=== PATIENT | male | born 1950 | race Caucasian/White ===

== ENCOUNTER 2018-09-10 08:29 | Inpatient (IN) | payer MEDICARE ==
--- NOTE | 2018-09-03 12:48 | HP ---
HISTORY AND PHYSICAL: DATE OF ADMISSION/SURGERY: 09/10/18 DATE OF OFFICE VISIT: 08/30/18 SURGEON: Fernanda Stanley MD * (DICTATED BY CHECO LOPEZ) PROCEDURE: Left total knee arthroplasty. CHIEF COMPLAINT: Left knee pain. HISTORY OF PRESENT ILLNESS: Mr. Graham is a 68-year-old gentleman with severe end - stage osteoarthritis of the left knee. He has failed conservative treatment and elected to proceed with a left total knee arthroplasty. PAST MEDICAL HISTORY: Hypertension, GERD, sleep apnea, COPD and factor VII deficiency. PAST SURGICAL HISTORY: Right total knee arthroplasty, bariatric surgery, hernia repair, prostate surgery unknown, appendectomy and vein stripping. CURRENT MEDICATIONS: 1. Vitamin B12. 2. Multivitamin. 3. Omeprazole 40 mg daily. 4. Torsemide 10 mg daily. 5. Aspirin 81 mg. 6. Calcium with vitamin D. 7. Anoro Ellipta. 8. Metoprolol 25 mg half a tab daily. ALLERGIES: No known drug allergies. FAMILY HISTORY: Coronary artery disease, DVT, and stroke. SOCIAL HISTORY: He is a 68-year-old gentleman, lives with his . He quit smoking approximately 10 years ago. Denies use of drugs. Uses alcohol rarely. REVIEW OF SYSTEMS: A complete 14-point review of systems was reviewed with the patient. It was positive for factor VII deficiency, GERD, COPD, and shortness of breath. He denies history of DVT, PE, hepatitis, HIV, or anesthesia problems. PHYSICAL EXAMINATION GENERAL: He is well developed, well nourished, in no acute distress. VITAL SIGNS: He stands 6 feet tall, weighs 315 pounds. His blood pressure is 136/84 and his heart rate is 60. HEENT: Normocephalic, atraumatic. NECK: Supple. No palpable lymph nodes. PULMONARY: The lungs are clear to auscultation bilaterally. CARDIO: Regular rate and rhythm. Strong S1, S2. ABDOMEN: Soft, nontender, nondistended. NEUROLOGICAL: He is alert and oriented x3. MUSCULOSKELETAL: Left lower extremity, the skin is intact. There are no open wounds or abrasions. There is some tenderness over the medial and lateral joint line. Range of motion is 10 to 120 degrees of flexion with patellofemoral crepitus. There is 2+ pitting edema, 2+ dorsalis pedis pulse, intact sensation. His lower extremity muscle group strengths are intact at 5/5. ASSESSMENT AND PLAN: Mr. Graham is a 68-year-old gentleman with end-stage osteoarthritis of the left knee. He has failed conservative treatment and elected to proceed with a left total knee arthroplasty. The surgery is scheduled for 09/10/[address] Stanley discussed the risks and benefits of the surgery at today's visit and all of his questions were answered. He will follow with Dr. Stanley 2 weeks after the surgery. CHECO LOPEZ [id number]/[facility] #: [id number] NIKKY
--- NOTE | 2018-09-04 13:54 | CONS ---
CC: Dr. Fernanda Stanley; Dr. Erin Carolina * CONSULTATION NOTE: DATE OF CONSULT: 09/04/18 DATE OF UPCOMING ADMISSION: 09/09/18 REASON FOR CONSULT: Factor VII deficiency. HISTORY OF PRESENT ILLNESS: Mr. Graham is a 68-year-old male who was seen in our office in March 2018. He had originally been seen in August 2013. At that time, he had been scheduled for a TURP for benign prostatic hypertrophy. He was found to have an elevated INR at 1.4. Attempts were given to use a vitamin K, but his INR did not budge. Workup ensued and included anticardiolipin antibodies being normal, Willebrand's being normal, and protein factor level as being normal; however, he was found to have a low factor VII level. This was repeated. This was an unusual finding and was found to be 26%; on repeat, at 23 %. More recently factor VII level has been checked on the day of the office visit in March and is still 27%. Arrangements were made for him to have his TURP surgery. This was done with a NovoSeven replacement (recombinant factor VIII replacement). At that time, INR was checked following the dose of NovoSeven and INR dropped from a normal to less than 0.6. There was significant issues of laboratory in terms of trying to quantitate this at that time. Subsequently in March 2018, his INR was 1.4, similar to his baseline and then on 08/30/18 at baseline, again at 1.37. The patient in the past has had a bleeding history. His bariatric surgery in January 2013 with no complications. He has lost 120 pounds from then until 2013 and he has regained 30 pounds since. The patient is status post total knee replacement on the right in the past, had significant bleeding at the sites 3 days later. This started after he was exercising. He ended up being immobilized for 2 weeks and no further bleeding. He has had some issues with that knee ever since. He has had no problems in the past within the other surgical procedures. He dose describe easy bruisability, sometimes bruising even when he does not bump himself. He has had no significant bleeding history spontaneously; specifically no epistaxis, gum bleeding, hematuria, bright red blood per rectum, or melena. The patient is currently scheduled for a contralateral left total knee arthroplasty. This is for a severe end-stage osteoarthritis of the knee having failed conservative treatment. Other laboratory studies recently have included CBC with a white count of 6200, H and H 46/15.9 with a platelet count of 188, 000. It should be noted that the patient at times has had mildly decreased platelet counts in the 120 to 140 range although normal at this time. 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 He will require a recombinant factor VII replacement in order to have surgery. There are guidelines from the [employer] (STER). In this registry, there were a total of 41 surgical operations performed on 34 subjects with a factor VII deficiency. These were patients treated with recombinant factor VII. In each case, where factor VII was given at appropriate dosing, there was no significant bleeding. Recommended dose of factor VII would be 13 mcg/kg, which in a 326-pound individual would be 1.9 mg. This dose should be given preoperatively and are given 12 and 24 hours later. If he has any signs of any bleeding, certainly further dosing could be given. I have already checked with the hospital pharmacy and adequate dosing is available in the pharmacy for use in this manner. However, if are further questions, please feel free to contact our office. Orders will be placed in the patient's hospital chart including in the preoperative setting for appropriate dosing of recombinant factor VII. Risks of giving NovoSeven were discussed with the patient at the time of the office visit in March 2018. There were cases of factor VII causing thrombotic events when levels become too high. There is also obviously a risk for bleeding if this does not adequately replace his levels. Clearly, he was more than adequately replaced on similar dosing at the time of his prostate surgery in 2013. I would not, at this time, advise checking INRs as this is a standard dose to be given. [id number]/[facility] #: [id number] [facility]
[~2018-09-10 08:29] MED LIST: Buffered Lidocaine 1% SYRIN* 1 ML/SYRINGE INTRADERM ONE; Famotidine IV* 10 MG/ML 2 ML (20 mg) IV ONE; Gabapentin CAP(*) 300 MG PO ONE
--- OUTSIDE RECORDS SUMMARY | 2018-09-10 08:33 | XMS REPORT | Continuity of Care Document ---
:1950 External Reference #:[id number] Author Name Vidya Everett Care Team Providers Name Role Phone Carlos Xavier NP Primary Care Physician Unavailable Payers Type Date Identification Numbers Payment Provider Subscriber Effective: Policy Number: [id number] [facility] Neha Vallesr 2010 Expires: 2014 PayID: [id number] [address] [place] [address] Effective: 2014 Policy Number: [id number] Medicare Blue Ppo Neha Graham Group Number: [id number] [address] PayID: [id number] [place] [address] Advance Directives Description No Information Available Problems Date Description Provider Status Onset: 07/26/2011 Edema Mirian Kelly M.D. Onset: 07/26/2011 Dyspnea Mirian Kelly M.D. Onset: 07/26/2011 Electrocardiogram abnormal Mirian Kelly M.D. Onset: 07/26/2011 Right bundle branch block Mirian Kelly M.D. Onset: 07/26/2011 Benign essential hypertension Mirian Kelly M.D. Onset: 07/26/2011 Coronary arteriosclerosis Mirian Kelly M.D. Onset: 03/27/2012 Pulmonary emphysema Mirian Kelly M.D. Onset: 03/27/2012 Morbid obesity Mirian Kelly M.D. Onset: 06/04/2015 Essential hypertension Mirian Kelly M.D. Onset: 10/30/2016 Chronic obstructive lung disease Kate Boyce MD Active Onset: 10/30/2016 Obstructive sleep apnea syndrome Kate Boyce MD Active Onset: 10/30/2016 Encounter for screening for Kate Boyce MD Active malignant neoplasm of respiratory organs Onset: 03/11/2018 Localized, primary osteoarthritis Philip Talamantes M.D. Active Family History Date Family Member(s) Problem(s) Comments General Heart Disease General MGF of a stroke MGM Alzheimer's PGF Train accident at age 80 PGM Natural causes : (age 83 Father due to CHF valve replacement surgery Years) Mother at age 90 Natural causes Had had mini strokes Siblings 2 Sister knee issues Brother w/knee, hernia issues, CABG 10/14 Social History Type Date Description Comments Sex Unknown Marital Status Lives With Occupation [employer] Tobacco Use Start: Unknown End: Former Cigarette Smoker Smoked 2 ppd for 40 Unknown years Smoking Status Reviewed: 09/06/18 Former Cigarette Smoker Smoked 2 ppd for 40 years ETOH Use Occasionally consumes alcohol Tobacco Use Start: Unknown End: Patient is a former 40 yrs 2 pks Unknown smoker Recreational Drug Use Denies Drug Use Exercise Type/Frequency Exercises sporadically Exercise Limitations Joint Pain Allergies, Adverse Reactions, Alerts Description No Known Drug Allergies Medications Medication Date Status Form Strength Qnty SIG Indications Ordering Provider Vitamin B-12 10/29/ Active Tablets 500mcg 90tab 1 po qd Other 2012 s Ordering Provider Multi Vitamin / Active Tablets 1 po qd Unknown 0000 Omeprazole [address]/ [address] 40mg 30cap 1 po qd Unknown 0000 s Cpap 0000/ Active at hs Unknown 0000 Torsemide 0000/ Active Tablets 10mg 90tab 1 by mouth Unknown 0000 s every day Aspir-81 0000/ Active Tablets DR 81mg 1 by mouth Unknown 0000 every day Calcium Plus 00/ Active Liquid 1000mg 1 tbsp. po Unknown D 0000 qd Anoro Ellipta 00/ Active 1 puff Unknown 0000 daily Metoprolol / Active Tablets ER 25mg 45tab 1/2 tablet Qutaybeh Succinate ER 0000 24HR s by mouth S. 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 2015 needed Calcium + D 09/16/ Hx Chewtabs 500mg 2 every day Other 2014 - Ordering 06/03/ Provider 2014 Tramadol HCL 07/01/ Hx Tablets 50mg 90tab 1 tablets Dirk 2013 - s by mouth q6 [place], 09/15/ hours as M.DKashmir 2014 needed pain Ipratropium 10/29/ Hx Solution 0.5-2.5(3) 90uni 1 vial in Other [place]/Albut 2012 - mg/3ML ts nebulizer Ordering joelle Sulfate 12/07/ three times Provider 2014 a day as needed for asthma Calcium 500 10/29/ Hx Tablets 500mg 60tab 2 po daily Other 2012 - s Ordering 09/16/ Provider 2015 Lisinopril 10/29/ Hx Tablets 10mg 1 po qd Coby 2012 - S. 10/29/ Raghu Guzman M.D. Lisinopril 10/29/ Hx Tablets 20mg 1 po qd Qutaybeh 2012 - S. 07/16/ Raghu 2012 Baltazar Advair Diskus 03/27/ Hx Aerosol 250-50mcg/ 1unit 1 puff po Alexandrataybpriyanka 2012 - Dose s bid S. 10/29/ Raghu 2012 Baltazar Demadex 02/07/ Hx Tablets 20mg 1/2 po qd Qutaybeh 2010 - S. 10/29/ Raghu Guzman M.D. Lisinopril 05/11/ Hx Tablets 20mg 90tab 1 po qd Qutaybeh 2009 - s S. 10/29/ Raghu 2012 Baltazar HCTZ 03/10/ Hx 25mg. 30uni 1 po qd Qutaybeh 2009 - ts S. 10/29/ hayd2012 , Baltazar Demadex 03/08/ Hx Tablets 20mg 60tab one po qd Qutaybeh 2009 - s S. 02/07/ haydah 2010 , Baltazar Demadex 02/08/ Hx Tablets 20mg 60tab 1 po bid Qutaybeh 2009 - s S. 03/08/ yd2009 , Baltazar Lasix 12/27/ Hx Tablets 40mg 1 po qam, Qutaybeh 2009 - 08/28 po qpm S. 02/08/ hayd2009 , Baltazar Lasix 12/17/ Hx Tablets 20mg 1 po qd Qutaybeh 2009 - S. 12/27/ 2009 , Baltazar Lasix 12/06/ Hx Tablets 40mg 1 po qd Qutaybeh 2009 - S. 12/17/ hayd2009 , Baltazar Lasix 11/10/ Hx Tablets 40mg 90tab 1 and 08/28 Qutaybeh 2009 - s po bid S. 12/06/ yd2009 , Baltazar Aldactone 11/10/ Hx Tablets 25mg 30tab 1 po qd Qutaybeh 2009 - s S. 12/06/ 2009 , Baltazar HCTZ 11/10/ Hx 25mg. 60uni 2 po qd Qutaybeh 2009 - ts S. 03/10/ yd2009 , Baltazar Cozaar 11/10/ Hx Tablets 50mg 90tab 1 po qd Qutaybeh 2009 - s S. 10/29/ yd2012 , Baltazar Lasix 07/29/ Hx Tablets 40mg 30tab 1 po qd Qutaybeh 2008 - s S. 11/10/ yd2009 , Baltazar C-Pap 07/13/ Hx qhs Qutaybeh 2008 - S. [facility] Baltazar Hyzaar 06/02/ Hx Tablets 50-12.5mg 30tab one po qd Qutaybeh 2008 - s S. 11/10/ Maghaydah 2009 , Baltazar Amlodipine 03/30/ Hx Tablets 5mg 45tab 1 and 08/28 Qutaybeh Besylate 2009 - s tablet po S. 06/02/ qd Maghaydah 2008 , Baltazar Norvasc 09/09/ Hx Tablets 5mg 45tab 1and 08/28 po Qutaybeh 2009 - s qd [facility] Lasix 07/31/ Hx Tablets 40mg 30tab 1 po qd Qutaybeh 2008 - s S. 07/29/ [facility] , Baltazar Lisinopril 07/31/ Hx Tablets 20mg 180ta 1 po bid Qutaybeh 2008 - bs S. 05/11/ [facility] , Baltazar Lisinopril 05/18/ Hx Tablets 20mg 45tab 1 tablet in Qutaybeh 2008 - s am and 08/28 S. 07/31/ [facility] , Baltazar Jeffcet-N 01/28/ Hx Tablets 100 90tab 1 po qd Qutaybeh 100 2007 - s S. 07/31/ haydah 2007 , Baltazar Lisinopril 01/28/ Hx Tablets 20mg 1 PO am and Qutaybeh 2007 - 08/28 pm S. 01/28/ [facility] , Baltazar Lisinopril 01/28/ Hx Tablets 10mg 90tab take two Qutaybeh 2007 - s tabs in the S. 05/18/ Am and one haydah 2007 tab in the , MAurelia PM Aspirin 09/25/ Hx Chewtabs 81mg 1 PO qd Qutaybeh 2007 - S. 12/07/ [facility] , Baltazar Lopressor 09/25/ Hx Tablets 50mg 30tab 1/2 po qd Qutaybeh 2007 - s S. 12/02/ [facility] , Baltazar Mobic 09/18/ Hx Tablets 7.5mg 30tab 1 PO qd Qutaybeh 2007 - s S. 01/28/ [facility] , Baltazar Lisinopril 09/18/ Hx Tablets 20mg 1 PO qd Qutaybeh 2008 - S. 01/28/ Raghu Alexander M.D. Lopressor 09/18/ Hx Tablets 25mgM 30tab 1 po qd Coby 2007 - s S. 09/18/ Raghu Alexander M.D. Lopressor 09/18/ Hx Tablets 25mg 30tab one po qd Alexandrataybpriyanka 2007 - s S. 09/25/ Raghu Alexander M.D. Amoxicillin / Hx 875mg 1 po tid Unknown 0000 - 2010 Nasal [place] / Hx Solution prn Unknown 0000 - allergies 2011 Albuterol / Hx Nebulizer (2.5mg/3ML 100un 1 vial via Unknown Sulfate 0000 - ) 0.083% its nebulizer 4 03/27/ times daily 2011 as needed Albuterol / Hx Nebulizer (2.5mg/3ML 100un 1 vial via Unknown Sulfate 0000 - ) 0.083% its nebulizer 4 10/29/ times daily 2012 as needed Budesonide / Hx Suspension 0.5mg/2ML 180un inhaled bid Unknown 0000 - its 2012 Spiriva 00/ Hx Capsules 18mcg 30cap 1 Unknown Handihaler 0000 - s inhalation 10/29/ po qam 2012 Brovana / Hx Nebulizer 15mcg/2ML 180un 1 ud Unknown 0000 - its nebulized 10/29/ bid 2012 C-Pap With / Hx Capsules Unknown 2/L O2 - 2013 Vitamin D-3 / Hx Tablets 1000Unit 90tab 1 po qd Unknown 0000 - s 2014 Torsemide / Hx Tablets 5mg 30tab 1 po qd Unknown 0000 - s 2012 Modesta / Hx Capsules 0.5-0.4mg 90cap 1 po qd Unknown 0000 - s 2013 Alfuzosin HCL / Hx 10mg Unknown ER - 2013 Finasteride /00/ Hx 5mg Unknown - 2013 Tudorza / Hx Aerosol 400mcg/Act 60uni 1 puff Unknown Pressair 0000 - ts twice a day 2015 Tylenol Extra / Hx Tablets 500mg 100ta 2 by mouth Unknown Strength 0000 - bs as needed 2015 Proair HFA / Hx prn Unknown 0000 - 2015 Augmentin / Hx Tablets 800mg 1 by mouth Unknown 0000 - twice a day 2017 Probiotic / Hx Capsules 1 capsules Unknown 0000 - by mouth 2017 Medications Administered in Office Medication Date Status Form Strength Qnty SIG Indications Ordering Provider Inj, Administered Injection Bao Fry Regadenoson, 019 Ag, 0.1 MG M.D., FAC, FASNC Technetium TC Administered Injection Bao Fry 99M 019 Ag TetrofBaltazar romero, FAC, Per Unit Dose FASNC Up To 40 Millicuries Depomedrol Administered Injection Fernanda 40MG 018 Jaden, M.D. Synvisc Or Administered Injection Fernanda Synvisc-One 018 Jaden, M.D. Injection 1 MG Depomedrol Administered Injection Dirk [place], 40MG 018 M.D. Synvisc Or Administered Injection Dirk [place], Synvisc-One 018 M.D. Injection 1 MG Synvisc Or Administered Injection Dirk [place], Synvisc-One 017 M.D. Injection 1 MG Depomedrol Administered Injection Dirk [place], 40MG 017 M.D. Synvisc Or Administered Injection Dirk [place], Synvisc-One 017 M.D. Injection 1 MG Depomedrol Administered Injection Dirk [place], 40MG 017 M.D. Depomedrol Administered Injection Dirk [place], 40MG 017 M.D. Synvisc Or Administered Injection Dirk [place], Synvisc-One 016 M.D. Injection 1 MG Depomedrol Administered Injection Dirk [place], 40MG 016 M.D. Synvisc Or Administered Injection Scarlett Synvisc-One 015 Liptak, Injection 1 MG RPA-C Synvisc Or Administered Injection Scarlett Synvisc-One 014 Liptak, Injection 1 MG RPA-C Depomedrol Administered Injection Dirk [place], 80MG 014 M.D. Depomedrol Administered Injection Dirk [place], 80MG 014 M.D. Depomedrol Administered Injection Dirk [place], 80MG 013 M.D. Immunizations Description No Information Available Vital Signs Date Vital Result Comment 09/06/2018 4:16pm Height 72 inches 6'0" Weight 324.00 lb with shoes Heart Rate 68 /min lt wrist, regular BP Systolic Sitting 130 mmHg rt arm BP Diastolic Sitting 80 mmHg rt arm BMI (Body Mass Index) 43.9 kg/m2 Ejection Fraction 55-60% echo 09/04/18 08/30/2018 1:00pm Height 72 inches 6'0" Weight 315.00 lb Heart Rate 60 /min BP Systolic 136 mmHg BP Diastolic 84 mmHg BMI (Body Mass Index) 42.7 kg/m2 08/13/2018 3:30pm Height 72 inches 6'0" Weight 324.25 lb with shoes Heart Rate 64 /min lt radial, regular BP Systolic Sitting 150 mmHg rt arm BP Diastolic Sitting 88 mmHg rt arm BMI (Body Mass Index) 44.0 kg/m2 Ejection Fraction 60-65% echo 04/23/17 07/12/2018 8:07am Height 72 inches 6'0" Heart Rate 67 /min BP Systolic 130 mmHg BP Diastolic 82 mmHg Respiratory Rate 20 /min Body Temperature 98.1 F Pain Level 8 06/21/2018 11:45am Height 72 inches 6'0" Heart Rate 54 /min BP Systolic 140 mmHg BP Diastolic 80 mmHg Respiratory Rate 20 /min Pain Level 9 05/20/2018 10:40am Height 72 inches 6'0" Weight 320.00 lb BP Systolic 148 mmHg BP Diastolic 90 mmHg Body Temperature 98.3 F BMI (Body Mass Index) 43.4 kg/m2 03/18/2018 1:03pm Height 71 inches 5'11" Weight 320.00 lb Heart Rate 74 /min BP Systolic 132 mmHg BP Diastolic 76 mmHg Respiratory Rate 14 /min Body Temperature 97.8 F Pain Level 9 BMI (Body Mass Index) 44.6 kg/m2 03/11/2018 1:54pm Height 71 inches 5'11" Weight 320.00 lb BP Systolic 136 mmHg BP Diastolic 74 mmHg Respiratory Rate 20 /min Pain Level 8 BMI (Body Mass Index) 44.6 kg/m2 12/24/2017 3:39pm Height 71 inches 5'11" Weight 327.00 lb w/shoes Heart Rate 62 /min BP Systolic Sitting 146 mmHg L/A LG cuff BP Diastolic Sitting 80 mmHg L/A LG cuff BMI (Body Mass Index) 45.6 kg/m2 Ejection Fraction 60-65% echo 04/23/2017 12/06/2017 11:25am Height 71 inches 5'11" Weight 327.00 lb Heart Rate 64 /min BP Systolic Sitting 134 mmHg BP Diastolic Sitting 84 mmHg Respiratory Rate 14 /min O2 % BldC Oximetry 97 % BMI (Body Mass Index) 45.6 kg/m2 10/10/2017 2:33pm Height 71 inches 5'11" Weight 320.00 lb BP Systolic 128 mmHg BP Diastolic 78 mmHg Respiratory Rate 20 /min Pain Level 9 BMI (Body Mass Index) 44.6 kg/m2 10/01/2017 10:31am Height 71 inches 5'11" Heart Rate 63 /min BP Systolic 142 mmHg BP Diastolic 70 mmHg Respiratory Rate 18 /min Body Temperature 98.0 F Pain Level 8 05/11/2017 2:51pm Height 71 inches 5'11" Weight 320.00 lb w/ shoes Heart Rate 62 /min reg BP Systolic Sitting 116 mmHg Lue, lg cuff BP Diastolic Sitting 76 mmHg Lue, lg cuff Respiratory Rate 16 /min BMI (Body Mass Index) 44.6 kg/m2 Ejection Fraction 60-65% as of 04/23/17 echo 03/28/2017 1:12pm Height 71 inches 5'11" Weight 314.75 lb with shoes Heart Rate 82 /min BP Systolic Sitting 144 mmHg LA lrg cuff BP Diastolic Sitting 84 mmHg LA lrg cuff BMI (Body Mass Index) 43.9 kg/m2 Ejection Fraction 55% -60% echo 01/14/16 02/14/2017 10:22am Height 71 inches 5'11" Weight 315.00 lb Heart Rate 60 /min BP Systolic 150 mmHg BP Diastolic 92 mmHg Respiratory Rate 18 /min Body Temperature 97.2 F Pain Level 8 BMI (Body Mass Index) 43.9 kg/m2 11/30/2016 1:44pm Height 71 inches 5'11" Weight 315.00 lb Heart Rate 64 /min BP Systolic Sitting 132 mmHg BP Diastolic Sitting 82 mmHg Respiratory Rate 22 /min Pain Level 8 Both knees O2 % BldC Oximetry 95 % BMI (Body Mass Index) 43.9 kg/m2 10/30/2016 1:11pm Height 71 inches 5'11" Weight 315.00 lb Heart Rate 64 /min BP Systolic Sitting 140 mmHg BP Diastolic Sitting 84 mmHg Respiratory Rate 18 /min O2 % BldC Oximetry 94 % BMI (Body Mass Index) 43.9 kg/m2 Neck Circumference in inches 18 10/11/2016 3:05pm Height 71 inches 5'11" Weight 321.00 lb Heart Rate 74 /min BP Systolic 138 mmHg BP Diastolic 68 mmHg Respiratory Rate 18 /min Body Temperature 97.9 F BMI (Body Mass Index) 44.8 kg/m2 09/11/2016 3:33pm Height 71 inches 5'11" Weight 310.00 lb Respiratory Rate 16 /min Pain Level 5 BMI (Body Mass Index) 43.2 kg/m2 09/06/2016 1:52pm Height 71 inches 5'11" Weight 310.00 lb Pain Level 9 BMI (Body Mass Index) 43.2 kg/m2 08/01/2016 3:16pm Height 71 inches 5'11" Weight 322.50 lb Heart Rate 60 /min BP Systolic Sitting 150 mmHg LA, large BP Diastolic Sitting 84 mmHg LA, large BMI (Body Mass Index) 45.0 kg/m2 Ejection Fraction 55-60% echo 01/14/16 03/08/2016 10:41am Body Temperature 97.0 F 03/08/2016 10:35am Height 71 inches 5'11" Weight 210.00 lb Heart Rate 57 /min BP Systolic 139 mmHg BP Diastolic 83 mmHg BMI (Body Mass Index) 29.3 kg/m2 12/16/2015 3:42pm Height 72 inches 6'0" Weight 318.25 lb with shoes Heart Rate 72 /min BP Systolic Sitting 120 mmHg LA, large BP Diastolic Sitting 80 mmHg LA, large BMI (Body Mass Index) 43.2 kg/m2 Ejection Fraction 50-55% echo 09/18/14 10/14/2015 2:06pm Height 70 inches 5'10" Weight 319.00 lb BMI (Body Mass Index) 45.8 kg/m2 06/16/2015 4:12pm Height 72 inches 6'0" Weight 311.00 lb Pain Level 8 BMI (Body Mass Index) 42.2 kg/m2 06/09/2015 3:40pm Height 72 inches 6'0" Weight 311.00 lb Pain Level 8 BMI (Body Mass Index) 42.2 kg/m2 06/04/2015 8:07am Height 72 inches 6'0" Weight 314.00 lb w/shoes Heart Rate 56 /min BP Systolic Sitting 136 mmHg LA lg cuff BP Diastolic Sitting 92 mmHg LA lg cuff BMI (Body Mass Index) 42.6 kg/m2 Ejection Fraction 50-55 echo 09/18/14 10/21/2014 1:00pm Height 72 inches 6'0" Weight 314.00 lb Pain Level 0 BMI (Body Mass Index) 42.6 kg/m2 09/16/2014 2:34pm Height 72 inches 6'0" Weight 314.00 lb Heart Rate 56 /min BP Systolic Sitting 138 mmHg LA, large BP Diastolic Sitting 72 mmHg LA, large BMI (Body Mass Index) 42.6 kg/m2 07/15/2014 8:28am Height 72 inches 6'0" Weight 301.00 lb Body Temperature 97.7 F BMI (Body Mass Index) 40.8 kg/m2 07/01/2014 3:06pm Height 72 inches 6'0" Weight 301.00 lb Pain Level 9 BMI (Body Mass Index) 40.8 kg/m2 06/16/2014 1:44pm Height 72 inches 6'0" Heart Rate 61 /min BP Systolic 131 mmHg BP Diastolic 77 mmHg 03/02/2014 3:00pm Height 72 inches 6'0" Weight 301.00 lb Heart Rate 55 /min BP Systolic 127 mmHg BP Diastolic 67 mmHg BMI (Body Mass Index) 40.8 kg/m2 02/24/2014 2:47pm Height 72 inches 6'0" Weight 301.00 lb Heart Rate 60 /min BP Systolic Sitting 126 mmHg BP Diastolic Sitting 74 mmHg Respiratory Rate 18 /min BMI (Body Mass Index) 40.8 kg/m2 02/11/2014 1:51pm Height 72 inches 6'0" Weight 290.00 lb Heart Rate 49 /min BP Systolic 145 mmHg BP Diastolic 85 mmHg BMI (Body Mass Index) 39.3 kg/m2 12/24/2013 2:25pm Height 72 inches 6'0" Weight 295.00 lb Heart Rate 55 /min BP Systolic 128 mmHg BP Diastolic 76 mmHg BMI (Body Mass Index) 40.0 kg/m2 12/08/2013 3:03pm Height 72 inches 6'0" Weight 295.00 lb Heart Rate 52 /min BP Systolic 128 mmHg BP Diastolic 71 mmHg BMI (Body Mass Index) 40.0 kg/m2 07/23/2013 8:27am Height 72 inches 6'0" Weight 287.00 lb Heart Rate 65 /min BP Systolic 118 mmHg BP Diastolic 72 mmHg BMI (Body Mass Index) 38.9 kg/m2 07/04/2013 8:45am Height 72 inches 6'0" Weight 307.00 lb Heart Rate 56 /min BP Systolic 120 mmHg BP Diastolic 74 mmHg BMI (Body Mass Index) 41.6 kg/m2 11/12/2012 12:26pm Height 72 inches 6'0" Heart Rate 76 /min BP Systolic Sitting 130 mmHg BP Diastolic Sitting 70 mmHg 10/29/2012 8:12am Height 72 inches 6'0" Weight 349.00 lb Heart Rate 58 /min BP Systolic 104 mmHg BP Diastolic 64 mmHg BMI (Body Mass Index) 47.3 kg/m2 03/27/2012 2:43pm Height 72 inches 6'0" Weight 398.00 lb Heart Rate 63 /min BP Systolic 120 mmHg BP Diastolic 70 mmHg Respiratory Rate 18 /min BMI (Body Mass Index) 54.0 kg/m2 07/26/2011 3:44pm Height 72 inches 6'0" Weight 407.00 lb Heart Rate 59 /min BP Systolic Sitting 122 mmHg BP Diastolic Sitting 64 mmHg BMI (Body Mass Index) 55.2 kg/m2 12/23/2010 2:48pm Height 72 inches 6'0" Weight 390.25 lb Heart Rate 66 /min BP Systolic Sitting 110 mmHg l BP Diastolic Sitting 60 mmHg l BMI (Body Mass Index) 52.9 kg/m2 09/23/2010 1:59pm Height 72 inches 6'0" Weight 385.00 lb Heart Rate 64 /min BP Systolic Sitting 118 mmHg BP Diastolic Sitting 70 mmHg BMI (Body Mass Index) 52.2 kg/m2 06/22/2010 9:25am Height 72 inches 6'0" Weight 374.00 lb Heart Rate 60 /min BP Systolic Sitting 118 mmHg BP Diastolic Sitting 66 mmHg BMI (Body Mass Index) 50.7 kg/m2 03/10/2010 10:19am Height 72 inches 6'0" Weight 367.00 lb Heart Rate 72 /min BP Systolic Sitting 114 mmHg BP Diastolic Sitting 60 mmHg BMI (Body Mass Index) 49.8 kg/m2 02/08/2010 9:48am Weight 374.00 lb Heart Rate 60 /min BP Systolic 102 mmHg BP Diastolic 70 mmHg Respiratory Rate 18 /min 01/12/2010 8:21am Height 72 inches 6'0" Weight 353.00 lb Heart Rate 64 /min BP Systolic Sitting 118 mmHg L BP Diastolic Sitting 70 mmHg L O2 % BldC Oximetry 98 % BMI (Body Mass Index) 47.9 kg/m2 12/06/2009 3:25pm Height 72 inches 6'0" Weight 359.00 lb Heart Rate 64 /min BP Systolic Sitting 100 mmHg BP Diastolic Sitting 60 mmHg BP Systolic Standing 100 mmHg BP Diastolic Standing 60 mmHg BMI (Body Mass Index) 48.7 kg/m2 11/10/2009 2:29pm Height 72 inches 6'0" Weight 366.00 lb Heart Rate 72 /min BP Systolic Sitting 124 mmHg L BP Diastolic Sitting 64 mmHg L O2 % BldC Oximetry 94 % BMI (Body Mass Index) 49.6 kg/m2 10/28/2009 10:48am Height 72 inches 6'0" Weight 366.00 lb Heart Rate 64 /min BP Systolic Sitting 124 mmHg L BP Diastolic Sitting 70 mmHg L BMI (Body Mass Index) 49.6 kg/m2 07/13/2009 1:52pm Weight 359.00 lb Heart Rate 68 /min BP Systolic Sitting 120 mmHg BP Diastolic Sitting 60 mmHg Respiratory Rate 18 /min 06/02/2009 8:39am Weight 371.00 lb Heart Rate 60 /min BP Systolic Sitting 140 mmHg BP Diastolic Sitting 70 mmHg Respiratory Rate 18 /min 11/19/2008 8:24am Height 72 inches 6'0" Weight 372.00 lb Heart Rate 64 /min BP Systolic Sitting 140 mmHg BP Diastolic Sitting 84 mmHg BMI (Body Mass Index) 50.4 kg/m2 09/09/2008 11:31am Height 72 inches 6'0" Weight 356.00 lb Heart Rate 64 /min BP Systolic Sitting 150 mmHg R BP Diastolic Sitting 84 mmHg R BMI (Body Mass Index) 48.3 kg/m2 07/31/2008 8:33am Height 72 inches 6'0" Weight 357.00 lb Heart Rate 55 /min BP Systolic Sitting 160 mmHg L BP Diastolic Sitting 90 mmHg L BMI (Body Mass Index) 48.4 kg/m2 01/29/2008 8:43am Height 72 inches 6'0" Weight 345.00 lb Heart Rate 64 /min BP Systolic Sitting 160 mmHg L BP Diastolic Sitting 90 mmHg L O2 % BldC Oximetry 94 % BMI (Body Mass Index) 46.8 kg/m2 09/25/2007 7:59am Height 72 inches 6'0" Heart Rate 78 /min reg BP Systolic Sitting 160 mmHg BP Diastolic Sitting 90 mmHg 09/18/2007 9:12am Height 72 inches 6'0" Weight 334.00 lb Heart Rate 72 /min BP Systolic Sitting 160 mmHg left arm, right arm 164/90 BP Diastolic Sitting 90 mmHg left arm, right arm 164/90 BP Systolic Standing 156 mmHg BP Diastolic Standing 90 mmHg BMI (Body Mass Index) 45.3 kg/m2 Results Test Date Facility Test Result H/L Range Note Urinalysis Profile 08/30/2018 [facility] Urine Color Yellow [address] [place] [address] [phone] Urine Appearance Clear Urine Specific [place] 1.018 N 1.010-1.030 Urine pH 7.0 N 5-9 Urine Urobilinogen Negative Negative Urine Ketones Negative Negative Urine Protein Negative Negative Urine Leukocytes Negative Negative Urine Blood Negative Negative Urine Nitrite Negative Negative Urine Bilirubin Negative Negative Urine Glucose Negative Negative CBC Auto Diff 08/30/2018 [facility] White Blood 6.2 10^3/uL N 3.5-10.[address] [place] [address] [phone] Red Blood Count 5.11 10^6/uL N 4.00-5.40 Hemoglobin 15.9 g/dL N 14.0-18.0 Hematocrit 46 % N 42-52 Mean Corpuscular Volume 91 fL N 80-94 Mean Corpuscular Hemoglobin 31 pg N 27-31 Mean Corpuscular HGB Conc 34 g/dL N 31-36 Red Cell Distribution Width 14 % N 10.5-15 Platelet Count 188 10^3/uL N 150-450 Mean Platelet Volume 10.2 fL N 7.4-10.4 Abs Neutrophils 4.0 10^3/uL N 1.5-7.7 Abs Lymphocytes 1.3 10^3/uL N 1.0-4.8 Abs Monocytes 0.6 10^3/uL N 0-0.8 Abs Eosinophils 0.1 10^3/uL N 0-0.6 Abs Basophils 0.1 10^3/uL N 0-0.2 Abs Nucleated RBC 0 10^3/uL Granulocyte % 65.1 % Lymphocyte % 21.5 % Monocyte % 10.2 % Eosinophil % 2.3 % Basophil % 0.9 % Nucleated Red Blood Cells % 0 Type & Screen 08/30/2018 [facility] Patient Blood Type A Positive [address] [place] [address] [phone] Antibody Screen NEGATIVE Inr/Protime 08/30/2018 [facility] Inr 1.37 High 0.77-1.[address] [place] [address] [phone] Laboratory test 08/30/2018 [facility] Partial 30.0 N 26.0- 36.[address] [place] [address] Time PTT [phone] Comp Metabolic 08/30/2018 [facility] Sodium 140 mmol/L N 135- [address] [place] [address] [phone] Potassium 4.1 mmol/L N 3.5-5.0 Chloride 102 mmol/L N 101-111 Co2 Carbon Dioxide 30 mmol/L N 22-32 Anion Gap 8 mmol/L N 2-11 Glucose 83 mg/dL N 70-100 Blood Urea Nitrogen 21 mg/dL N 6-24 Creatinine 0.80 mg/dL N 0.67-1.17 BUN/Creatinine Ratio 26.3 High 8-20 Calcium 9.6 mg/dL N 8.6-10.3 Total Protein 6.4 g/dL N 6.4-8.9 Albumin 4.3 g/dL N 3.2-5.2 Globulin 2.1 g/dL N 2-4 Albumin/Globulin Ratio 2.0 N 1-3 Total Bilirubin 0.70 mg/dL N 0.2-1.0 Alkaline Phosphatase 123 U/L High 34-104 Alt 21 U/L N 7-52 Ast 25 U/L N 13-39 Egfr Non- 95.8 >60 Egfr 116.0 >60 1 Urine Culture And 08/30/2018 [facility] Urine Culture SEE RESULT [address] [place] [address] [phone] Laboratory test 10/04/2017 [facility] Hemoglobin A1c 5.2 % N 4.0-5 [address] [place] [address] [phone] Laboratory test 09/19/2016 [facility] PSA Screening 0.953 ng/mL N 0-4.0 [address] [place] [address] [phone] Iron & Iron Binding 09/19/2016 [facility] Iron 156 g/dL N 50 -[address] [place] [address] [phone] Unsaturated Iron Binding 229 g/dL N Total Iron Binding Capacity 385 g/dL N 250-450 % Iron Saturation 41 % N 15-55 CBC Auto Diff 09/19/2016 [facility] White Blood 8.7 10^3/uL N 3.5-10.[address] [place] [address] [phone] Red Blood Count 5.24 10^6/uL N 4.0-5.4 Hemoglobin 15.8 g/dL N 14.0-18.0 Hematocrit 47 % N 42-52 Mean Corpuscular Volume 90 fL N 80-94 Mean Corpuscular Hemoglobin 30 pg N 27-31 Mean Corpuscular HGB Conc 34 g/dL N 31-36 Red Cell Distribution Width 13 % N 10.5-15 Platelet Count 117 10^3/uL Low 150-450 Mean Platelet Volume 11 um3 High 7.4-10.4 Abs Neutrophils 7.0 10^3/uL N 1.5-7.7 Abs Lymphocytes 0.9 10^3/uL Low 1.0-4.8 Abs Monocytes 0.6 10^3/uL N 0-0.8 Abs Eosinophils 0.1 10^3/uL N 0-0.6 Abs Basophils 0.1 10^3/uL N 0-0.2 Abs Nucleated RBC 0 10^3/uL N Granulocyte % 79.8 % N 38-83 Lymphocyte % 10.6 % Low 25-47 Monocyte % 7.4 % N 1-9 Eosinophil % 1.4 % N 0-6 Basophil % 0.8 % N 0-2 Nucleated Red Blood Cells % 0 N Comp Metabolic Panel 09/19/2016 [facility] Sodium 136 mmol/L N 133-[address] [place] [address] [phone] Potassium 4.2 mmol/L N 3.5-5.0 Chloride 102 mmol/L N 101-111 Co2 Carbon Dioxide 28 mmol/L N 22-32 Anion Gap 6 mmol/L N 2-11 Glucose 89 mg/dL N 70-100 Blood Urea Nitrogen 26 mg/dL High 6-24 Creatinine 0.97 mg/dL N 0.67-1.17 BUN/Creatinine Ratio 26.8 High 8-20 Calcium 9.7 mg/dL N 8.6-10.3 Total Protein 6.5 g/dL N 6.4-8.9 Albumin 4.1 g/dL N 3.2-5.2 Globulin 2.4 g/dL N 2-4 Albumin/Globulin Ratio 1.7 N 1-3 Total Bilirubin 1.00 mg/dL N 0.2-1.0 Alkaline Phosphatase 126 U/L High 34-104 Alt 18 U/L N 7-52 Ast 25 U/L N 13-39 Egfr Non- 77.2 N >60 Egfr 99.3 N >60 5 Bariatric Panel Post 09/19/2016 [facility] Ferritin 76.5 ng/mL N 24-[address] [place] [address] [phone] Vitamin B12 1081 pg/mL High 180-914 6 Folic Acid (Folate) > 20.00 ng/mL N >3.99 Vitamin D Total 25(Oh) 46.6 ng/mL N 30-50 Vitamin B1 (Whole Blood) 231 nmol/L Abnormal 70-180 7 Vitamin E Level 6.1 mg/L N 5.5 - 17.0 8 CBC Auto Diff 08/10/2015 [facility] White Blood 9.2 10^3/uL N 3.5-10.[address] [place] [address] [phone] Red Blood Count 4.88 10^6/uL N 4.0-5.4 Hemoglobin 14.9 g/dL N 14.0-18.0 Hematocrit 45 % N 42-52 Mean Corpuscular Volume 92 fL N 80-94 Mean Corpuscular Hemoglobin 31 pg N 27-31 Mean Corpuscular HGB Conc 33 g/dL N 31-36 Red Cell Distribution Width 13 % N 10.5-15 Platelet Count 134 10^3/uL Low 150-450 Mean Platelet Volume 11 um3 High 7.4-10.4 Abs Neutrophils 7.1 10^3/uL N 1.5-7.7 Abs Lymphocytes 1.2 10^3/uL N 1.0-4.8 Abs Monocytes 0.8 10^3/uL N 0-0.8 Abs Eosinophils 0.1 10^3/uL N 0-0.6 Abs Basophils 0.1 10^3/uL N 0-0.2 Abs Nucleated RBC 0 10^3/uL N Granulocyte % 77.3 % N 38-83 Lymphocyte % 12.9 % Low 25-47 Monocyte % 8.4 % N 1-9 Eosinophil % 0.8 % N 0-6 Basophil % 0.6 % N 0-2 Nucleated Red Blood Cells % 0 N Laboratory test 08/10/2015 [facility] Lactic Acid 1.2 mmol/L N 0.5-2.0 9 finding [address] [place] [address] [phone] Comp Metabolic 08/10/2015 [facility] Sodium 141 mmol/L N 133- 145 Panel [address] [place] [address] [phone] Potassium 4.2 mmol/L N 3.5-5.0 Chloride 105 mmol/L N 101-111 Co2 Carbon Dioxide 30 mmol/L N 22-32 Anion Gap 6 mmol/L N 2-11 Glucose 81 mg/dL N 70-100 Blood Urea Nitrogen 28 mg/dL High 6-24 Creatinine 1.28 mg/dL High 0.67-1.17 BUN/Creatinine Ratio 21.9 High 8-20 Calcium 9.6 mg/dL N 8.6-10.3 Total Protein 6.9 g/dL N 6.4-8.9 Albumin 4.2 g/dL N 3.2-5.2 Globulin 2.7 g/dL N 2-4 Albumin/Globulin Ratio 1.6 N 1-3 Total Bilirubin 0.60 mg/dL N 0.2-1.0 Alkaline Phosphatase 113 U/L High 34-104 Alt 18 U/L N 7-52 Ast 26 U/L N 13-39 Egfr Non- 56.2 N >60 Egfr 72.3 N >60 10 Laboratory test 08/10/2015 [facility] Troponin-I 0.00 ng/mL N <0.03 [address] (TnI) [place] [address] [phone] CBC Auto Diff 09/16/2014 [facility] White Blood 6.3 N 4.8- 10.[address] Count 10^3/[place] [address] [phone] Red Blood Count 4.85 10^6/uL N 4.0-5.4 Hemoglobin 15.1 g/dL N 14.0-18.0 Hematocrit 45 % N 42-52 Mean Corpuscular Volume 92 fL N 80-94 Mean Corpuscular Hemoglobin 31 pg N 27-31 Mean Corpuscular HGB Conc 34 g/dL N 31-36 Red Cell Distribution Width 13 % N 10.5-15 Platelet Count 123 10^3/uL Low 150-450 Mean Platelet Volume 11 um3 High 7.4-10.4 Abs Neutrophils 4.6 10^3/uL N 1.5-7.7 Abs Lymphocytes 1.0 10^3/uL N 1.0-4.8 Abs Monocytes 0.5 10^3/uL N 0-0.8 Abs Eosinophils 0.1 10^3/uL N 0-0.6 Abs Basophils 0 10^3/uL N 0-0.2 Abs Nucleated RBC 0 10^3/uL N Granulocyte % 72.9 % N 38-83 Lymphocyte % 16.1 % Low 25-47 Monocyte % 8.3 % N 1-9 Eosinophil % 2.0 % N 0-6 Basophil % 0.7 % N 0-2 Nucleated Red Blood Cells % 0.1 N Comp Metabolic Panel 09/16/2014 [facility] Sodium 137 mmol/L N 133-[address] [place] [address] [phone] Potassium 4.5 mmol/L N 3.5-5.0 Chloride 103 mmol/L N 101-111 Co2 Carbon Dioxide 31 mmol/L N 22-32 Anion Gap 3 mmol/L N 2-11 Glucose 103 mg/dL High 70-100 Blood Urea Nitrogen 26 mg/dL High 6-24 Creatinine 1.01 mg/dL N 0.67-1.17 BUN/Creatinine Ratio 25.7 High 8-20 Calcium 9.7 mg/dL N 8.6-10.3 Total Protein 6.8 g/dL N 6.4-8.9 Albumin 4.2 g/dL N 3.2-5.2 Globulin 2.6 g/dL N 2-4 Albumin/Globulin Ratio 1.6 N 1-3 Total Bilirubin 0.80 mg/dL N 0.2-1.0 Alkaline Phosphatase 116 U/L High 34-104 Alt 15 U/L N 7-52 Ast 22 U/L N 13-39 Egfr Non- 74.1 N >60 Egfr 95.3 N >60 13 Iron & Iron Binding 09/16/2014 [facility] Iron 105 g/dL N 50 -[address] [place] [address] [phone] Unsaturated Iron Binding 277 g/dL N Total Iron Binding Capacity 382 g/dL N 250-450 % Iron Saturation 27 % N 15-55 Laboratory test 09/16/2014 [facility] Ferritin 56.7 ng/mL N 24 -336 [address] [place] [address] [phone] Vitamin B12 906 pg/mL N 180-914 15 Folate > 20.00 ng/mL N >3.99 16 Vitamin D, 25 09/16/2014 [facility] 25-Hydroxy Vitamin <4.0 ng/ mL N Hydroxy [address] [address] [phone] 25-Hydroxy Vitamin D3 53 ng/mL N 25-Hydroxy Vitamin D Total 53 ng/mL N 17 Laboratory test 09/16/2014 [facility] Vitamin B1 215 nmol/L Abnormal 70-180 [address] [place] [address] [phone] Vitamin E Level 7.2 mg/L N 5.5 - 17.0 19 Laboratory test 02/28/2014 [facility] Vitamin B1 147 nmol/L N 70-180 [address] [place] [address] [phone] Vitamin E Level 6.9 mg/L N 5.5 - 17.0 21 Vitamin D, 25 02/28/2014 [facility] 25-Hydroxy Vitamin <4.0 ng/ mL N Hydroxy [address] [place] [address] [phone] 25-Hydroxy Vitamin D3 48 ng/mL N 25-Hydroxy Vitamin D Total 48 ng/mL N 22 Laboratory test 02/28/2014 [facility] Ferritin 43.8 ng/mL N 24 -336 finding [address] [place] [address] [phone] Vitamin B12 674 pg/mL N 180-914 23 Folate > 20.00 ng/mL N >3.99 Iron & Iron Binding 02/28/2014 [facility] Iron 65 g/dL N 50- 212 Capacity [address] [place] [address] [phone] Unsaturated Iron Binding 327 g/dL N Total Iron Binding Capacity 392 g/dL N 250-450 % Iron Saturation 17 % N 15-55 Comp Metabolic Panel 02/28/2014 [facility] Sodium 138 mmol/L N 133-145 [address] [place] [address] [phone] Potassium 4.1 mmol/L N 3.7-5.6 Chloride 103 mmol/L N 101-111 Co2 Carbon Dioxide 31 mmol/L N 22-32 Anion Gap 4 mmol/L N 2-11 Glucose 88 mg/dL N 70-100 Blood Urea Nitrogen 19 mg/dL N 6-24 Creatinine 1.11 mg/dL N 0.67-1.17 BUN/Creatinine Ratio 17.1 N 8-20 Calcium 9.6 mg/dL N 8.6-10.3 Total Protein 6.6 g/dL N 6.4-8.9 Albumin 4.2 g/dL N 3.2-5.2 Globulin 2.4 g/dL N 2-4 Albumin/Globulin Ratio 1.8 N 1-3 Total Bilirubin 0.70 mg/dL N 0.2-1.0 Alkaline Phosphatase 134 U/L High 34-104 Alt 15 U/L N 7-52 Ast 24 U/L N 13-39 Egfr Non- 66.7 N >60 Egfr 85.8 N >60 24 CBC Auto Diff 02/28/2014 [facility] White Blood 5.6 10^3/uL N 4.8-10.8 [address] [facility] [place] [address] [phone] Red Blood Count 4.81 10^6/uL N 4.0-5.4 Hemoglobin 14.8 g/dL N 14.0-18.0 Hematocrit 43 % N 42-52 Mean Corpuscular Volume 89 fL N 80-94 Mean Corpuscular Hemoglobin 31 pg N 27-31 Mean Corpuscular HGB Conc 35 g/dL N 31-36 Red Cell Distribution Width 15 % N 10.5-15 Platelet Count 121 10^3/uL Low 150-450 Mean Platelet Volume 10 um3 N 7.4-10.4 Abs Neutrophils 3.7 10^3/uL N 1.5-7.7 Abs Lymphocytes 1.1 10^3/uL N 1.0-4.8 Abs Monocytes 0.5 10^3/uL N 0-0.8 Abs Eosinophils 0.2 10^3/uL N 0-0.6 Abs Basophils 0.1 10^3/uL N 0-0.2 Abs Nucleated RBC 0 10^3/uL N Granulocyte % 66.6 % N 38-83 Lymphocyte % 20.1 % Low 25-47 Monocyte % 9.0 % N 1-9 Eosinophil % 3.4 % N 0-6 Basophil % 0.9 % N 0-2 Nucleated Red Blood Cells % 0 N Basic Metabolic Panel 08/29/2013 [facility] Sodium 136 mmol/L 133-[address] [place] [address] [phone] Potassium 4.4 mmol/L 3.5-5.0 Chloride 100 mmol/L Low 101-111 Co2 Carbon Dioxide 27.0 mmol/L 22-32 Anion Gap 9.0 mmol/L 2-11 Glucose 95 mg/dL 70-100 Blood Urea Nitrogen 27 mg/dL High 6-24 Creatinine 1.10 mg/dL 0.50-1.40 BUN/Creatinine Ratio 24.5 High 8-20 Calcium 9.5 mg/dL 8.1-9.9 Egfr Non- 67.4 >60 Egfr 86.7 >60 25 Laboratory test 08/29/2013 [facility] Activated 28.0 24.0- 36.[address] [place] [address] Thrombo Time [phone] Inr/Protime 08/29/2013 [facility] Inr 1.43 High 0.85-1.[address] [place] [address] [phone] CBC Auto Diff 08/29/2013 [facility] White Blood 6.2 10^3/uL 4.8-10.[address] [place] [address] [phone] Red Blood Count 4.28 10^6/uL 4.0-5.4 Hemoglobin 13.2 g/dL Low 14.0-18.0 Hematocrit 38 % Low 42-52 Mean Corpuscular Volume 88 fL 80-94 Mean Corpuscular Hemoglobin 31 pg 27-31 Mean Corpuscular HGB Conc 35 g/dL 31-36 Red Cell Distribution Width 14 % 10.5-15 Platelet Count 126 10^3/uL Low 150-450 Mean Platelet Volume 10 um3 7.4-10.4 Abs Neutrophils 4.2 10^3/uL 1.5-7.7 Abs Lymphocytes 1.2 10^3/uL 1.0-4.8 Abs Monocytes 0.5 10^3/uL 0-0.8 Abs Eosinophils 0.1 10^3/uL 0-0.6 Abs Basophils 0.1 10^3/uL 0-0.2 Abs Nucleated RBC 0 10^3/uL Granulocyte % 68.3 % 38-83 Lymphocyte % 19.9 % Low 25-47 Monocyte % 8.7 % 1-9 Eosinophil % 2.2 % 0-6 Basophil % 0.9 % 0-2 Nucleated Red Blood Cells % 0.1 Basic Metabolic Panel 07/23/2013 [facility] Sodium 136 mmol/L 133-[address] [place] [address] [phone] Potassium 4.9 mmol/L 3.5-5.0 Chloride 101 mmol/L 101-111 Co2 Carbon Dioxide 26.0 mmol/L 22-32 Anion Gap 9.0 mmol/L 2-11 Glucose 88 mg/dL 70-100 Blood Urea Nitrogen 30 mg/dL High 6-24 Creatinine 1.10 mg/dL 0.50-1.40 BUN/Creatinine Ratio 27.3 High 8-20 Calcium 9.6 mg/dL 8.1-9.9 Egfr Non- 67.4 >60 Egfr 86.7 >60 26 CBC Auto 03/07/2013 [facility] White Blood 4.7 10^3/uL Low 4.8 -10.[address] [place] [address] [phone] Red Blood Count 4.43 10^6/uL 4.0-5.4 Hemoglobin 14.0 g/dL 14.0-18.0 Hematocrit 40 % Low 42-52 Mean Corpuscular Volume 90 fL 80-94 Mean Corpuscular Hemoglobin 32 pg High 27-31 Mean Corpuscular HGB Conc 35 g/dL 31-36 Red Cell Distribution Width 14 % 10.5-15 Platelet Count 114 10^3/uL Low 150-450 Mean Platelet Volume 10 um3 7.4-10.4 Abs Neutrophils 3.0 10^3/uL 1.5-7.7 Abs Lymphocytes 1.0 10^3/uL 1.0-4.8 Abs Monocytes 0.5 10^3/uL 0-0.8 Abs Eosinophils 0.1 10^3/uL 0-0.6 Abs Basophils 0.1 10^3/uL 0-0.2 Abs Nucleated RBC 0 10^3/uL Granulocyte % 64.3 % 38-83 Lymphocyte % 21.1 % Low 25-47 Monocyte % 10.4 % High 1-9 Eosinophil % 3.0 % 0-6 Basophil % 1.2 % 0-2 Nucleated Red Blood Cells % 0 Comp Metabolic Panel 03/07/2013 [facility] Sodium 136 mmol/L 133-[address] [place] [address] [phone] Potassium 4.0 mmol/L 3.5-5.0 Chloride 104 mmol/L 101-111 Co2 Carbon Dioxide 26.0 mmol/L 22-32 Anion Gap 6.0 mmol/L 2-11 Glucose 99 mg/dL 70-100 Blood Urea Nitrogen 24 mg/dL 6-24 Creatinine 1.30 mg/dL 0.50-1.40 BUN/Creatinine Ratio 18.5 8-20 Calcium 9.5 mg/dL 8.1-9.9 Total Protein 5.7 g/dL Low 6.2-8.1 Albumin 3.8 g/dL 3.2-5.2 Globulin 1.9 g/dL Low 2-4 Albumin/Globulin Ratio 2.0 1-3 Total Bilirubin 1.0 mg/dL 0.4-1.5 Alkaline Phosphatase 139 U/L High 30-110 Alt 19 U/L 14-54 Ast 27 U/L 12-42 Egfr Non- 55.8 >60 Egfr 71.7 >60 27 Iron & Iron Binding 03/07/2013 [facility] Iron 83 g/dL 45- 182 Capacity [address] [facility] [place] [address] [phone] Unsaturated Iron Binding 270 g/dL Total Iron Binding Capacity 353 g/dL 250-450 % Iron Saturation 24 % 15-55 Laboratory test 03/07/2013 [facility] Ferritin 184 ng/mL 24- [address] [place] [address] [phone] Vitamin B12 332 pg/mL 180-914 29 Folate 15.2 ng/mL 2-16 30 Vitamin D, 25 03/07/2013 [facility] 25-Hydroxy Vitamin <4.0 ng/ mL Hydroxy [address] [facility] [address]2 [place] [address] [phone] 25-Hydroxy Vitamin D3 45 ng/mL 25-Hydroxy Vitamin D Total 45 ng/mL 31 Laboratory test 03/07/2013 [facility] Vitamin B1 112 nmol/L 70-180 32 finding [address] [facility] [place] [place] [address] [phone] Vitamin E Level 6.7 mg/L 5.5 - 17.0 33 Basic Metabolic Panel 10/22/2012 [facility] Sodium 141 mmol/L 133-145 [address] [place] [address] [phone] Potassium 4.3 mmol/L 3.5-5.0 Chloride 107 mmol/L 101-111 Co2 Carbon Dioxide 25.0 mmol/L 22-32 Anion Gap 9.0 mmol/L 2-11 Glucose 99 mg/dL 70-100 Blood Urea Nitrogen 23 mg/dL 6-24 Creatinine 1.30 mg/dL 0.50-1.40 BUN/Creatinine Ratio 17.7 8-20 Calcium 9.6 mg/dL 8.1-9.9 Egfr Non- 55.8 >60 Egfr 71.7 >60 34 Basic Metabolic Panel 03/18/2012 [facility] Sodium 138 mmol/L 135-145 [address] [place] [address] [phone] Potassium 3.7 mmol/L 3.5-5.0 Chloride 104 mmol/L 101-111 Co2 (Carbon Dioxide) 26.0 mmol/L 22-32 Anion Gap 8.0 mmol/L 2-11 35 Glucose 108 mg/dL High 70-100 BUN 37 mg/dL High 6-24 Creatinine 1.3 mg/dL 0.50-1.40 One Over Creatinine 0.76 BUN/Creatinine Ratio 28.5 High 8-20 Calcium 9.6 mg/dL 8.1-9.9 eGFR Non- 55.9 > 60 eGFR 71.9 > 60 36 Laboratory test 02/23/2012 [facility] Hemoglobin A1c 6.2 % High Less Than [address] [place] [address] [phone] Basic Metabolic 02/23/2012 [facility] Sodium 137 135-[address] mmol/[place] [address] [phone] Potassium 4.7 mmol/L 3.5-5.0 Chloride 102 mmol/L 101-111 Co2 (Carbon Dioxide) 26.0 mmol/L 22-32 Anion Gap 9.0 mmol/L 2-11 38 Glucose 111 mg/dL High 70-100 BUN 43 mg/dL High 6-24 Creatinine 1.3 mg/dL 0.50-1.40 One Over Creatinine 0.76 BUN/Creatinine Ratio 33.1 High 8-20 Calcium 9.7 mg/dL 8.1-9.9 eGFR Non- 55.9 > 60 eGFR 71.9 > 60 39 Basic Metabolic Panel 02/18/2011 [facility] Sodium 139 mmol/L 135-[address] [place] [address] [phone] Potassium 4.7 mmol/L 3.5-5.0 Chloride 104 mmol/L 101-111 Co2 (Carbon Dioxide) 28.0 mmol/L 22-32 Anion Gap 7.0 mmol/L 2-11 40 Glucose 119 mg/dL High 70-100 BUN 39 mg/dL High 6-24 Creatinine 1.20 mg/dL 0.50-1.40 One Over Creatinine 0.80 BUN/Creatinine Ratio 32.5 High 8-20 Calcium 9.4 mg/dL 8.1-9.9 eGFR Non- 61.6 > 60 eGFR 79.2 > 60 41 1 Because ethnic data is not always readily available, this report includes an eGFR for both -Americans and non- Americans. The National Kidney Disease Education Program (NKDEP) does not endorse the use of the MDRD equation for patients that are not between the ages of 18 and 70, are , have extremes of body size, muscle mass, or nutritional status, or are non- or non-. According to the National Kidney Foundation, irrespective of diagnosis, the stage of the disease is based on the level of kidney function: Stage Description GFR(mL/min/1.73 m(2)) 1 Kidney damage with normal or decreased GFR 90 2 Kidney damage with mild decrease in GFR 60-89 3 Moderate decrease in GFR 30-59 4 Severe decrease in GFR 15-29 5 Kidney failure <15 (or dialysis) 2 SEE RESULT BELOW Name: NEHA GRAHAM Antonino : [address]: Fernanda Stanley MD Acct: [id number] Unit: [id number] AGE: 68 Location: [facility] Re08/30/18 SEX: M Status: REG REF SPEC: [id number] CRISSY: 08/30/18-1506 [facility] DR: Fernanda Stanley MD REQ: [id number] RECD: [id number] STATUS: COMP [facility] DR: Carlos Xavier FRAME REPAIRER _ SOURCE: URINE SPDESC: ORDERED: Urine Culture QUERIES: Urine Source: Clean Catch Procedure Result Reported Site Urine Culture Final 08/31/18- 1221 ML No Growth (<1,000 CFU/mL) * ML - Main Lab . END OF REPORT DEPARTMENT OF PATHOLOGY, [address] [place] [address] Daniel Dumont M.D. Director [facility] # [id number] 3 Therapeutic target for the treatment of diabetes mellitus patients is <7% HBA1C, and in selective patients <6.0%. Please refer to [place] [employer] diabetic care guidelines for further information. 4 Serum levels of PSA measured using the [employer] DXI Hybritech immunoassay should not be interpreted as absolute evidence of the presence or absence of disease. The PSA value should be used in conjunction with other pertinent clinical diagnostic procedures. The values obtained with different assay methods or kits cannot be used interchangeably. 5 Because ethnic data is not always readily available, this report includes an eGFR for both -Americans and non- Americans. The National Kidney Disease Education Program (NKDEP) does not endorse the use of the MDRD equation for patients that are not between the ages of 18 and 70, are , have extremes of body size, muscle mass, or nutritional status, or are non- or non-. According to the National Kidney Foundation, irrespective of diagnosis, the stage of the disease is based on the level of kidney function: Stage Description GFR(mL/min/1.73 m(2)) 1 Kidney damage with normal or decreased GFR 90 2 Kidney damage with mild decrease in GFR 60-89 3 Moderate decrease in GFR 30-59 4 Severe decrease in GFR 15-29 5 Kidney failure <15 (or dialysis) 6 Normal Range 180 to 914 Indeterminate Range 145 to 180 Deficient Range <145 7 ADDITIONAL INFORMATION This test was developed and its performance characteristics determined by [facility] in a manner consistent with CLIA requirements. This test has not been cleared or approved by the U.S. Food and Drug Administration. Test Performed by: [facility] [place] [address] [employer] Specialist: Yayo Ewing II, M.D., Ph.D. 8 ADDITIONAL INFORMATION This test was developed and its performance characteristics determined by [facility] in a manner consistent with CLIA requirements. This test has not been cleared or approved by the U.S. Food and Drug Administration. Test Performed by: [facility] [place] [address] [employer] Specialist: Yayo Ewing II, M.D., Ph.D. 9 [facility] Severe Sepsis and Septic Shock Management Bundle Measure requires all lactic acids initially measuring >2.0mmol/L be repeated. 10 Because ethnic data is not always readily available, this report includes an eGFR for both -Americans and non- Americans. The National Kidney Disease Education Program (NKDEP) does not endorse the use of the MDRD equation for patients that are not between the ages of 18 and 70, are , have extremes of body size, muscle mass, or nutritional status, or are non- or non-. According to the National Kidney Foundation, irrespective of diagnosis, the stage of the disease is based on the level of kidney function: Stage Description GFR(mL/min/1.73 m(2)) 1 Kidney damage with normal or decreased GFR 90 2 Kidney damage with mild decrease in GFR 60-89 3 Moderate decrease in GFR 30-59 4 Severe decrease in GFR 15-29 5 Kidney failure <15 (or dialysis) 11 Reference Range and Interpretation: TnI (ng/mL) Interpretation Less Than 0.03 ng/mL Not supportive of diagnosis of AR 0.03 - 0.50 ng/mL Indeterminate: suggest serial studies if clinically indicated. Greater than 0.5 ng/mL Consistent with diagnosis of AR 12 FASTING 13 Because ethnic data is not always readily available, this report includes an eGFR for both -Americans and non- Americans. The National Kidney Disease Education Program (NKDEP) does not endorse the use of the MDRD equation for patients that are not between the ages of 18 and 70, are , have extremes of body size, muscle mass, or nutritional status, or are non- or non-. According to the National Kidney Foundation, irrespective of diagnosis, the stage of the disease is based on the level of kidney function: Stage Description GFR(mL/min/1.73 m(2)) 1 Kidney damage with normal or decreased GFR 90 2 Kidney damage with mild decrease in GFR 60-89 3 Moderate decrease in GFR 30-59 4 Severe decrease in GFR 15-29 5 Kidney failure <15 (or dialysis) 14 FASTING 15 Normal Range 180 to 914 Indeterminate Range 145 to 180 Deficient Range <145 16 FASTING 17 Interpretation: 51-80 ng/mL (increased risk of hypercalciuria) REFERENCE VALUE 25-HYDROXY D TOTAL (D2+D3) Optimum levels in the healthy population are 20-50, patients with bone disease may benefit from higher levels within this range. Test Performed by: [place] [address] [employer] Systems Specialist: Tristian Bryant M.D. 18 Test Performed by: [place] [address] [employer] Systems Specialist: Katharina Cutler, Ph.D. 19 Test Performed by: [place] [address] [employer] Systems Specialist: Katharina Cutler, Ph.D. 20 Test Performed by: [place] [address] [employer] Systems Specialist: Katharina Cutler, Ph.D. 21 Test Performed by: [place] [address] [employer] Systems Specialist: Katharina Cutler, Ph.D. 22 -- REFERENCE VALUE -- 25-HYDROXY D TOTAL (D2+D3) Optimum levels in the healthy population are 20-50, patients with bone disease may benefit from higher levels within this range. Test Performed by: [place] [address] [employer] Specialist: Fran Shukla III, M.D. 23 Normal Range 180 to 914 Indeterminate Range 145 to 180 Deficient Range <145 24 Because ethnic data is not always readily available, this report includes an eGFR for both -Americans and non- Americans. The National Kidney Disease Education Program (NKDEP) does not endorse the use of the MDRD equation for patients that are not between the ages of 18 and 70, are , have extremes of body size, muscle mass, or nutritional status, or are non- or non-. According to the National Kidney Foundation, irrespective of diagnosis, the stage of the disease is based on the level of kidney function: Stage Description GFR(mL/min/1.73 m(2)) 1 Kidney damage with normal or decreased GFR 90 2 Kidney damage with mild decrease in GFR 60-89 3 Moderate decrease in GFR 30-59 4 Severe decrease in GFR 15-29 5 Kidney failure <15 (or dialysis) 25 Because ethnic data is not always readily available, this report includes an eGFR for both -Americans and non- Americans. The National Kidney Disease Education Program (NKDEP) does not endorse the use of the MDRD equation for patients that are not between the ages of 18 and 70, are , have extremes of body size, muscle mass, or nutritional status, or are non- or non-. According to the National Kidney Foundation, irrespective of diagnosis, the stage of the disease is based on the level of kidney function: Stage Description GFR(mL/min/1.73 m(2)) 1 Kidney damage with normal or decreased GFR 90 2 Kidney damage with mild decrease in GFR 60-89 3 Moderate decrease in GFR 30-59 4 Severe decrease in GFR 15-29 5 Kidney failure <15 (or dialysis) 26 Because ethnic data is not always readily available, this report includes an eGFR for both -Americans and non- Americans. The National Kidney Disease Education Program (NKDEP) does not endorse the use of the MDRD equation for patients that are not between the ages of 18 and 70, are , have extremes of body size, muscle mass, or nutritional status, or are non- or non-. According to the National Kidney Foundation, irrespective of diagnosis, the stage of the disease is based on the level of kidney function: Stage Description GFR(mL/min/1.73 m(2)) 1 Kidney damage with normal or decreased GFR 90 2 Kidney damage with mild decrease in GFR 60-89 3 Moderate decrease in GFR 30-59 4 Severe decrease in GFR 15-29 5 Kidney failure <15 (or dialysis) 27 Because ethnic data is not always readily available, this report includes an eGFR for both -Americans and non- Americans. The National Kidney Disease Education Program (NKDEP) does not endorse the use of the MDRD equation for patients that are not between the ages of 18 and 70, are , have extremes of body size, muscle mass, or nutritional status, or are non- or non-. According to the National Kidney Foundation, irrespective of diagnosis, the stage of the disease is based on the level of kidney function: Stage Description GFR(mL/min/1.73 m(2)) 1 Kidney damage with normal or decreased GFR 90 2 Kidney damage with mild decrease in GFR 60-89 3 Moderate decrease in GFR 30-59 4 Severe decrease in GFR 15-29 5 Kidney failure <15 (or dialysis) 28 FASTING 29 FASTING 30 FASTING 31 -- REFERENCE VALUE -- 25-HYDROXY D TOTAL (D2+D3) Optimum levels in the normal population are 25-80 Test Performed by: [address] [address] [employer] Specialist: Fran Shukla III, M.D. 32 Test Performed by: [place] [address] [employer] Systems Specialist: Katharina Cutler, Ph.D. 33 Test Performed by: [place] [address] [employer] Specialist: Katharina Cutler, Ph.D. 34 Because ethnic data is not always readily available, this report includes an eGFR for both -Americans and non- Americans. The National Kidney Disease Education Program (NKDEP) does not endorse the use of the MDRD equation for patients that are not between the ages of 18 and 70, are , have extremes of body size, muscle mass, or nutritional status, or are non- or non-. According to the National Kidney Foundation, irrespective of diagnosis, the stage of the disease is based on the level of kidney function: Stage Description GFR(mL/min/1.73 m(2)) 1 Kidney damage with normal or decreased GFR 90 2 Kidney damage with mild decrease in GFR 60-89 3 Moderate decrease in GFR 30-59 4 Severe decrease in GFR 15-29 5 Kidney failure <15 (or dialysis) 35 Anion gap measurement may be of limited value in the presence of any alkalosis, especially in a combined acid base disorder. . 36 Because ethnic data is not always readily available, this report includes an eGFR for both -Americans and non- Americans. The National Kidney Disease Education Program (NKDEP) does not endorse the use of the MDRD equation for patients that are not between the ages of 18 and 70, are , have extremes of body size, muscle mass, or nutritional status, or are non- or non-. According to the National Kidney Foundation, irrespective of diagnosis, the stage of the disease is based on the level of kidney function: Stage Description GFR(mL/min/1.73 m(2)) 1 Kidney damage with normal or decreased GFR 90 2 Kidney damage with mild decrease in GFR 60-89 3 Moderate decrease in GFR 30-59 4 Severe decrease in GFR 15-29 5 Kidney failure <15 (or dialysis) 37 THERAPEUTIC TARGET FOR THE TREATMENT OF DIABETES MELLITUS PATIENTS IS <7% HBA1C, AND IN SELECTIVE PATIENTS <6.0%. PLEASE REFER TO [employer] DIABETIC CARE GUIDELINES FOR FURTHER INFORMATION. 38 Anion gap measurement may be of limited value in the presence of any alkalosis, especially in a combined acid base disorder. . 39 Because ethnic data is not always readily available, this report includes an eGFR for both -Americans and non- Americans. The National Kidney Disease Education Program (NKDEP) does not endorse the use of the MDRD equation for patients that are not between the ages of 18 and 70, are , have extremes of body size, muscle mass, or nutritional status, or are non- or non-. According to the National Kidney Foundation, irrespective of diagnosis, the stage of the disease is based on the level of kidney function: Stage Description GFR(mL/min/1.73 m(2)) 1 Kidney damage with normal or decreased GFR 90 2 Kidney damage with mild decrease in GFR 60-89 3 Moderate decrease in GFR 30-59 4 Severe decrease in GFR 15-29 5 Kidney failure <15 (or dialysis) 40 Anion gap measurement may be of limited value in the presence of any alkalosis, especially in a combined acid base disorder. . 41 Because ethnic data is not always readily available, this report includes an eGFR for both -Americans and non- Americans. The National Kidney Disease Education Program (NKDEP) does not endorse the use of the MDRD equation for patients that are not between the ages of 18 and 70, are , have extremes of body size, muscle mass, or nutritional status, or are non- or non-. According to the National Kidney Foundation, irrespective of diagnosis, the stage of the disease is based on the level of kidney function: Stage Description GFR(mL/min/1.73 m(2)) 1 Kidney damage with normal or decreased GFR 90 2 Kidney damage with mild decrease in GFR 60-89 3 Moderate decrease in GFR 30-59 4 Severe decrease in GFR 15-29 5 Kidney failure <15 (or dialysis) Procedures Date Code Description Status 09/06/2018 30729 EKG Tracing & Interpretation Completed 09/04/2018 93005 ECHO Transthoracic, Real-Time 2D With Doppler And Color Completed Flow 09/04/2018 27678 ECHO Transthoracic, Real-Time 2D With Doppler And Color Completed Flow 08/28/2018 01903 Stress Test Completed 08/28/2018 04439 Myocardial Perfusion Imaging Tomographic (Spect) Multiple Completed Studies 08/13/2018 58895 EKG Tracing & Interpretation Completed 07/12/2018 01430 Inject/Drain Joint/Bursa Major W/O US Completed 05/20/201822464 Inject/Drain Joint/Bursa Major W/O US Completed 03/11/201800390 Inject/Drain Joint/Bursa Major W/O US Completed 12/24/2017 91933 EKG Tracing & Interpretation Completed 10/10/201773486 Inject/Drain Joint/Bursa Major W/O US Completed 04/23/2017 39710 ECHO Transthoracic, Real-Time 2D With Doppler And Color Completed Flow 04/16/2017 02304 Holter Monitor Review (24 hr)dr review & interp only Completed 04/11/2017 12659 ECG Monitor/Recording W/Visual Superimposition Scanning Completed 03/28/2017 99258 EKG Tracing & Interpretation Completed 03/05/201797192 Inject/Drain Joint/Bursa Major W/O US Completed 02/14/201700135 Inject/Drain Joint/Bursa Major W/O US Completed 11/15/2016 25593 Diffusing Capacity Completed 11/15/2016 67541 Plethysmography Determination Lung Volumes & Per Airway Completed Resist 11/15/2016 51455 Pulmonary Stress Test Simple Completed 11/15/2016 54628 Pulmonary Function><Bronchodil Completed 09/11/201673794 Inject/Drain Joint/Bursa Major W/O US Completed 09/06/201651107 Inject/Drain Joint/Bursa Major W/O US Completed 08/01/2016 04629 EKG Tracing & Interpretation Completed 03/08/201659548 Inject/Drain Joint/Bursa Major W/O US Completed 03/08/201662910 Inject/Drain Joint/Bursa Major W/O US Completed 01/14/2016 92383 ECHO Transthoracic, Real-Time 2D With Doppler And Color Completed Flow 12/16/2015 34769 EKG Tracing & Interpretation Completed 06/16/2015 Inject/Drain Joint/Bursa Major W/O US Completed 06/04/2015 57330 EKG Tracing & Interpretation Completed 09/18/2014 30096 ECHO Transthoracic, Real-Time 2D With Doppler And Color Completed Flow 09/16/2014 21518 EKG Tracing & Interpretation Completed 07/15/201429544 Inject/Drain Joint/Bursa Major W/O US Completed 03/02/2014 Inject/Drain Joint/Bursa Major W/O US Completed 02/24/2014 90130 EKG Tracing & Interpretation Completed 12/24/2013 75354 Rad Exam; Foot Limited Completed 12/24/2013 39399 Rad Exam; Ankle Comp Completed 12/08/201306888 Inject/Drain Joint/Bursa Major W/O US Completed 09/13/2013 31779 EKG, Interpretation Only Completed 07/23/2013 43488 Xray Knee 3 Views Completed 07/23/2013 00183 Xray Knee 3 Views Completed 07/23/201362306 Inject/Drain Joint/Bursa Major W/O US Completed 07/15/2013 25756 Holter Monitor Review (24 hr)dr review & interp only Completed 07/04/2013 56583 EKG Tracing & Interpretation Completed 10/29/2012 34583 EKG Tracing & Interpretation Completed 10/22/2012 51343 ECHO Transthoracic, Real-Time 2D With Doppler And Color Completed Flow 09/11/2012 25633 EKG, Interpretation Only Completed 09/10/2012 80479 EKG, Interpretation Only Completed 08/23/2012 27624 EKG, Interpretation Only Completed 03/27/2012 30320 EKG Tracing & Interpretation Completed 07/26/2011 70714 EKG Tracing & Interpretation Completed 01/11/2011 73938 ECHO Transthoracic, Real-Time 2D With Doppler And Color Completed Flow 12/23/2010 55196 EKG Tracing & Interpretation Completed 06/22/2010 45707 EKG Tracing & Interpretation Completed 02/08/2010 78409 EKG Tracing & Interpretation Completed 11/09/2009 54573 ECHO Transthoracic, Real-Time 2D With Doppler And Color Completed Flow 10/28/2009 27949 EKG Tracing & Interpretation Completed 06/02/2009 52310 EKG, Interpretation Only Completed 06/02/2009 86340 EKG Tracing & Interpretation Completed 08/14/2008 85702 Stress ECHO Interpretation/Report Hospital Completed 08/14/2008 57299 Stress ECHO Interpretation/Report Hospital Completed 08/14/2008 96686 Treadmill Interp/Report Only Completed 08/14/2008 42408 Treadmill Interp/Report Only Completed 08/14/2008 93114 Stress Test Supervsn W/Out I/R Completed 08/07/2008 88764 Echocardiogram Completed 08/07/2008 67669 Pulse Doppler & Continuous Wave Completed 08/07/2008 28011 Pulse Doppler & Continuous Wave Completed 08/07/2008 03347 Color Doppler Completed 07/31/2008 77824 EKG Tracing & Interpretation Completed 09/20/2007 06350 Selective Coronary Angioplasty Completed 09/20/2007 04674 S/I/R Inj Proc Vent And Or Atrial Completed 09/20/2007 21301 S/I/R Inj Proc Vent And Or Atrial Completed 09/20/2007 25458 Coronary Angiography Completed 09/20/2007 88281 Inj Proc LFT Vent/LFT Atrl Angio Completed 09/20/2007 48100 Inj Proc LFT Vent/LFT Atrl Angio Completed 09/20/2007 76410 Left Heart Catheterization Completed 09/19/2007 91971 Echocardiogram Completed 09/19/2007 35851 Echocardiogram Completed 09/19/2007 19490 Echocardiogram Completed 09/19/2007 77556 Pulse Doppler & Continuous Wave Completed 09/19/2007 88190 Pulse Doppler & Continuous Wave Completed 09/19/2007 54886 Color Doppler Completed 09/19/2007 83010 Color Doppler Completed 09/19/2007 89482 Color Doppler Completed 09/18/2007 29800 EKG Tracing & Interpretation Completed 09/16/2007 32907 Treadmill Interp/Report Only Completed 09/16/2007 59893 Treadmill Interp/Report Only Completed 09/16/2007 25164 Stress Test Supervsn W/Out I/R Completed Encounters Type Date Location Provider Dx Diagnosis Office Visit 08/13/2018 [facility]. E66.01 Morbid ( severe) 4:20p Rosalba Krishnamurthy. obesity due to excess calories J44.9 Chronic obstructive pulmonary disease, unspecified I10 Essential (primary) hypertension I45.10 Unspecified right bundle-branch block I71.9 Aortic aneurysm of unspecified site, without rupture I25.10 Athscl heart disease of [place] coronary artery w/o ang pctrs Z01.810 Encounter for preprocedural cardiovascular examination Office Visit 06/21/2018 11:30a [facility] Fernanda Stanley, M25.562 Pain in left Of C.M.A. M.D. knee M25.462 Effusion, left knee E66.01 Morbid (severe) obesity due to excess calories M17.12 Unilateral primary osteoarthritis, left knee Office Visit 03/18/2018 1:00p [facility] Fernanda Stanley, M25.562 Pain in left Of C.M.A. M.D. knee M25.462 Effusion, left knee M17.12 Unilateral primary osteoarthritis, left knee E66.01 Morbid (severe) obesity due to excess calories J44.9 Chronic obstructive pulmonary disease, unspecified I44.0 Atrioventricular block, first degree I34.0 Nonrheumatic mitral (valve) insufficiency I10 Essential (primary) hypertension Office Visit 03/11/2018 1:45p [facility] Philip Talamantes, M25.562 Pain in left Of C.M.A. M.D. knee M25.462 Effusion, left knee M17.12 Unilateral primary osteoarthritis, left knee Office Visit 12/24/2017 4:00p Hema High J44.9 Chronic Cardiology Baltazar Krishnamurthy obstructive pulmonary disease, unspecified E66.01 Morbid (severe) obesity due to excess calories I44.0 Atrioventricular block, first degree I10 Essential (primary) hypertension I34.0 Nonrheumatic mitral (valve) insufficiency I45.10 Unspecified right bundle-branch block Office Visit 12/06/2017 11:30a Pulmonology And Kate J01.80 Other acute Sleep Services Of MD Carli sinusitis Chicken Tender J44.9 Chronic obstructive pulmonary disease, unspecified G47.33 Obstructive sleep apnea (adult) (pediatric) E66.01 Morbid (severe) obesity due to excess calories Z87.891 Personal history of nicotine dependence Office Visit 10/01/2017 Orthopedic Philip Talamantes, M17.12 Unilateral primary 10:45a Services Of MyraDKashmir osteoarthritis, left C.M.A. knee Office Visit 05/11/2017 Hema Kumar, I44.0 Atrioventricular 3:00p Cardiology PA block, first degree E66.01 Morbid (severe) obesity due to excess calories I10 Essential (primary) hypertension I34.0 Nonrheumatic mitral (valve) insufficiency Office Visit 03/28/2017 1:40p [facility] Alexadnramyeshapriyanka Haines. R06.02 Shortness of Baltazar Krishnamurthy breath I25.10 Athscl heart disease of [place] coronary artery w/o ang pctrs I71.9 Aortic aneurysm of unspecified site, without rupture I10 Essential (primary) hypertension I51.7 Cardiomegaly E66.01 Morbid (severe) obesity due to excess calories Z68.41 Body mass index (BMI) 40.0-44.9, adult I44.0 Atrioventricular block, first degree I45.10 Unspecified right bundle-branch block Office Visit 02/14/2017 Orthopedic Dilan Hess7.12 Unilateral primary 10:30a Services Of MKashmirD. osteoarthritis, left C.M.A. knee S46.011A Strain of musc/tend the rotator cuff of right shoulder, init M75.51 Bursitis of right shoulder S46.012D Strain of musc/tend the rotator cuff of left shoulder, subs Office Visit 11/30/2016 1:45p Pulmonology And Kate J44.9 Chronic Sleep [facility] Of MD Carli obstructive [place]ender pulmonary disease, unspecified G47.33 Obstructive sleep apnea (adult) (pediatric) E66.01 Morbid (severe) obesity due to excess calories Office Visit 10/30/2016 1:30p Pulmonology And Kate J44.9 Chronic Sleep Services Of MD Carli obstructive [place]ender pulmonary disease, unspecified G47.33 Obstructive sleep apnea (adult) (pediatric) E66.01 Morbid (severe) obesity due to excess calories Z12.2 Encntr screen for malignant neoplasm of respiratory organs Office Visit 10/11/2016 3:00p Surgical Hira Nieves, Z98.84 [facility], FACS surgery status R06.02 Shortness of breath Office Visit 09/06/2016 Orthopedic Philip Talamantes M17.12 Unilateral primary 1:45p Services Of M.D. osteoarthritis, left C.M.A. knee S46.012D Strain of musc/tend the rotator cuff of left shoulder, subs S46.011A Strain of musc/tend the rotator cuff of right shoulder, init Office Visit 08/01/2016 3:20p [facility] Coby S. I10 Essential Baltazar Krishnamurthy (primary) hypertension E66.01 Morbid (severe) obesity due to excess calories I25.10 Athscl heart disease of [place] coronary artery w/o joseph pctrs Office Visit 03/08/2016 Orthopedic rita Talamantes, M17.12 Unilateral primary 10:15a Services Of Baltazar osteoarthritis, left C.M.A. knee S46.012A Strain of musc/tend the rotator cuff of left shoulder, init Office Visit 12/16/2015 4:00p [facility] Coby S. I10 Essential Baltazar Krishnamurthy (primary) hypertension I45.0 Right fascicular block E66.01 Morbid (severe) obesity due to excess calories R94.31 Abnormal electrocardiogram [ECG] [EKG] I25.10 Athscl heart disease of [place] [facility] Shortness of breath Office Visit 06/09/2015 Orthopedic Scarlett M17.12 Unilateral primary 3:30p Services Of SCOTT Hopper osteoarthritis, left C.M.A. knee Office Visit 06/04/2015 [place] Coby S. I10 Essential (primary) 8:20a Cardiology viktor Krishnamurthy M.D. I45.0 Right fascicular block E66.01 Morbid (severe) obesity due to excess calories R94.31 Abnormal electrocardiogram [ECG] [EKG] I25.10 Athscl heart disease of [place] coronary artery w/o joseph pctrs Office Visit 10/21/2014 [facility] Kulwinder 715.97 Osteoarthrosis 1:00p Services Of Baltazar Shane Unspec Genlzd Or C.M.A. Localized Ankle & Foot 715.37 Osteoarthrosis Localzd Not Spec Prime Or 2Ndy Ankle & Foot Office Visit 09/16/2014 [place] Coby S. 401.1 Hypertension 2:40p Cardiology Baltazar Krishnamurthy Benign 278.01 Obesity Morbid 426.4 Right Bundle Branch Block 786.05 Shortness Of Breath Office Visit 07/15/2014 [facility] Scarlett 715.96 Osteoarthrosis 8:00a Services Of SCOTT Hopper Unspec Genlzd Or C.M.A. Localized Lower Leg Office Visit 07/01/2014 [facility] Scarlett 715.97 Osteoarthrosis 3:00p Services Of SCOTT Hopper Unspec Genlzd Or C.M.A. Localized Ankle & Foot Office Visit 06/16/2014 Orthopedic Kulwinder 715.97 Osteoarthrosis 1:30p Services Of [place] Shane Unspec Genlzd Or C.M.A. Localized Ankle & Foot Office Visit 03/02/2014 Orthopedic Philip Talamantes 716.96 Arthropathy Unspec 3:15p Services Of [place] Lower Leg C.M.A. Office Visit 02/24/2014 Hema High 401.1 Hypertension Benign 3:00p Cardiology Baltazar Krishnamurthy 278.01 Obesity Morbid 426.4 Right Bundle Branch Block 786.05 Shortness Of Breath Office Visit 02/11/2014 Orthopedic Kulwinder 715.97 Osteoarthrosis 1:45p Services Of [place] Shane Genlzd Or C.M.A. Localized Ankle & Foot Office Visit 12/24/2013 Orthopedic Kulwinder 716.96 Arthropathy Unspec 2:00p Services Of [place] Shane Lower Leg C.M.A. Office Visit 12/08/2013 Orthopedic Philip Talamantes 716.96 Arthropathy Unspec 2:45p Services Of [place] Lower Leg C.M.A. 727.06 Tenosynovitis Foot & Ankle Office Visit 09/16/2013 10:54a [facility],hemant Garay 995.91 Sepsis Hospitalists Baltazar Jerry 595.0 Cystitis Acute 492.8 Emphysema Other 780.53 Hypersomnia W/ Sleep Apnea Unspecified Office Visit 09/15/2013 10:54a [facility] Assjoselyn,hemant Garay 995.91 Sepsis Hospitaljaya Jerry M.D. 492.8 Emphysema Other Office Visit 09/14/2013 10:52a [facility] Brianna Padilla 995.91 Sepsis Assoc,hemant Butler M.D. 595.0 Cystitis Acute 492.8 Emphysema Other 780.53 Hypersomnia W/ Sleep Apnea Unspecified Office Visit 09/13/2013 10:49a [place] Venecia Reed Valerie, 995.91 Sepsis Assoc,pc Hospitalists Baltazar 595.0 Cystitis Acute 492.8 Emphysema Other 780.53 Hypersomnia W/ Sleep Apnea Unspecified Office Visit 07/23/2013 8:00a Orthopedic Philip Talamantes, 716.96 Arthropathy Unspec Services Of [place] Lower Leg C.M.A. V54.81 Aftercare Following Joint Replacement V43.65 Knee Replacement By Other Means Office Visit 07/12/2013 12:01p [facility] Jennifer 584.9 Acute Kidney Assoc,hemant Hdez M.D. Failure, Hospitalists Unspecified 401.9 Hypertension Unspec 492.8 Emphysema Other 278.01 Obesity Morbid Office Visit 07/11/2013 [facility] Wil 584.9 Acute Kidney 12:00p Assoc,hemant Estrella NStephanie Failure, Hospitalists Unspecified 401.9 Hypertension Unspec 492.8 Emphysema Other 278.01 Obesity Morbid Office Visit 07/04/2013 [place] Quwilber S. 401.1 Hypertension 9:00a Cardiology [place] Krishnamurthy Benign 426.4 Right Bundle Branch Block 794.31 Electrocardiogram (ECG) (EKG) Abnormal 782.3 Edema 492.8 Emphysema Other 414.01 Coronary Atherosclerosis [place] Office Visit 11/12/2012 3:00p [facility] Nurse Visit cc 401.1 Hypertension Benign Office Visit 10/29/2012 8:40a [facility] Coby S. 426.4 Right Bundle Adeel Krishnamurthy M.D. 794.31 Electrocardiogram (ECG) (EKG) Abnormal 782.3 Edema 401.1 Hypertension Benign Office 09/11/2012 [place] Qumyeshaeh S. 794.31 Electrocardiogram Visit 2:27p Cardiology Bal[place]zar Krishnamurthy (ECG) (EKG) Abnormal 414.01 Coronary Atherosclerosis [place] 401.0 Hypertension Malignant 786.50 Pain Chest Unspec 782.3 Edema 272.4 Hyperlipidemia Other Unspec Office Visit 03/27/2012 2:40p [facility] Coby S. 492.8 Emphysema Trey Krishnamurthy M.D. 278.01 Obesity Morbid 414.01 Coronary Atherosclerosis [place] 786.05 Shortness Of Breath 782.3 Edema 426.4 Right Bundle Branch Block 401.1 Hypertension Benign Office Visit 07/26/2011 4:00p [facility] Qutaybeh S. Maghaydah, 782.3 Edema M.D. 786.05 Shortness Of Breath 794.31 Electrocardiogram (ECG) (EKG) Abnormal 426.4 Right Bundle Branch Block 401.1 Hypertension Benign 414.01 Coronary Atherosclerosis [place] Office Visit 12/23/2010 3:00p [facility] Qutaybeh S. Maghaydah, 782.3 Edema M.D. 786.05 Shortness Of Breath 794.31 Electrocardiogram (ECG) (EKG) Abnormal 426.4 Right Bundle Branch Block 401.1 Hypertension Benign 414.01 Coronary Atherosclerosis [place] Office Visit 09/23/2010 2:20p [facility] Qutaybeh S. Maghaydah, 782.3 Edema M.D. 414.01 Coronary Atherosclerosis [place] 401.1 Hypertension Benign Office Visit 06/22/2010 9:40a [facility] Qutaybeh S. Maghaydah, 782.3 Edema M.D. 414.01 Coronary Atherosclerosis [place] 426.4 Right Bundle Branch Block Office Visit 03/10/2010 10:30a [facility] Qutaybeh S. Maghaydah, 782.3 Edema M.D. 401.1 Hypertension Benign 414.01 Coronary Atherosclerosis [place] Office Visit 02/08/2010 9:40a [facility] Qutaybeh S. Maghaydah, 782.3 Edema M.D. 401.1 Hypertension Benign 414.01 Coronary Atherosclerosis [place] 786.05 Shortness Of Breath 426.4 Right Bundle Branch Block Office Visit 01/12/2010 9:00a [facility] Qutaybeh S. Maghaydah, 782.3 Edema M.D. 401.1 Hypertension Benign 414.01 Coronary Atherosclerosis [place] 786.05 Shortness Of Breath Office Visit 12/06/2009 3:20p [facility] Qutaybeh S. Maghaydah, 782.3 Edema M.D. 401.1 Hypertension Benign 414.01 Coronary Atherosclerosis [place] Office Visit 11/10/2009 [place] Qutaybeh S. 414.01 Coronary 3:00p Cardiology Santinoydah, M.D. Atherosclerosis [place] 401.1 Hypertension Benign 782.3 Edema 786.05 Shortness Of Breath Office Visit 10/28/2009 [place] Qutaybeh S. 414.01 Coronary 11:10a Brittney Krishnamurthy M.D. Atherosclerosis [place] 401.1 Hypertension Benign 782.3 Edema Office Visit 07/13/2009 [place] Qutaybeh S. 414.01 Coronary 2:00p Brittney Krishnamurthy M.D. Atherosclerosis [place] 401.1 Hypertension Benign Office Visit 06/02/2009 [place] Qutaybeh S. 414.01 Coronary 8:40a Brittney Krishnamurthy M.D. Atherosclerosis [place] 426.4 Right Bundle Branch Block 401.1 Hypertension Benign 786.05 Shortness Of Breath 782.3 Edema Office Visit 11/19/2008 [place] Qutaybeh S. 414.01 Coronary 8:40a Brittney Krishnamurthy M.D. Atherosclerosis [place] 426.4 Right Bundle Branch Block 401.1 Hypertension Benign 786.05 Shortness Of Breath 782.3 Edema Office Visit 09/09/2008 [place] Qutaybeh S. 414.01 Coronary 11:40a Brittney Krishnamurthy M.D. Atherosclerosis [place] 426.4 Right Bundle Branch Block 401.0 Hypertension Malignant 786.05 Shortness Of Breath 782.3 Edema Office Visit 08/14/2008 [place] Qutaybeh S. 414.01 Coronary 11:00a Brittney Krishnamurthy M.D. Atherosclerosis [place] 786.50 Pain Chest Unspec 401.0 Hypertension Malignant Office Visit 07/31/2008 [place] Qutaybeh S. 414.01 Coronary 8:40a Brittney Krishnamurthy M.D. Atherosclerosis [place] 401.0 Hypertension Malignant 426.4 Right Bundle Branch Block 786.05 Shortness Of Breath 794.31 Electrocardiogram (ECG) (EKG) Abnormal 782.3 Edema Office Visit 01/29/2008 [place] Qutaybeh S. 414.01 Coronary 8:40a Brittney Krishnamurthy M.D. Atherosclerosis [place] 401.0 Hypertension Malignant 426.4 Right Bundle Branch Block 278.0 Obesity Office Visit 09/25/2007 [place] Qutaybeh S. 414.01 Coronary 8:20a Brittney Krishnamurthy M.D. Atherosclerosis [place] 786.05 Shortness Of Breath 401.0 Hypertension Malignant 794.31 Electrocardiogram (ECG) (EKG) Abnormal V72.81 Examination Preoperative Cardiovascular Office Visit 09/20/2007 7:00a [facility] Coby SKashmir 786.05 Myke Of Baltazar Krishnamurthy Breath 794.30 Cardiovascular Function Study Unspec Abnormal 401.1 Hypertension Benign Office Visit 09/18/2007 [place] Coby S. 401.0 Hypertension 9:40a [facility] Baltazar Krishnamurthy Malignant 786.05 Shortness Of Breath 794.31 Electrocardiogram (ECG) (EKG) Abnormal 278.0 Obesity Plan of Treatment Future Appointment(s):09/23/2018 8:00 am - Fernanda Stanley M.D. at [facility]09/10/2018 11:30 am - Rico Haines PA-C at [facility].09/10/2018 11:30 am - CHECO Pelayo at [facility]09/10/2018 11:30 am - Fernanda Stanley M.D. at [facility]12/09/2018 11:30 am - Kate Boyce MD at [facility]09/06/2018 - Coby Krishnamurthy M.D.I25.10 Atherosclerotic heart disease of [place] coronary artery withFollow up:8 months [id number] Essential (primary) [id number] Aortic aneurysm of unspecified site , without vassbcoD29.01 Morbid (severe) obesity due to excess yufiiqryO21.9 Chronic obstructive pulmonary disease, unspecified
--- OUTSIDE RECORDS SUMMARY | 2018-09-10 08:34 | XMS REPORT | Continuity of Care Document ---
:1950 External Reference #:[id number] Author Name DionOneil patterson Care Team Providers Name Role Phone Carlos Xavier NP Primary Care Physician Unavailable Payers Type Date Identification Numbers Payment Provider Subscriber Effective: Policy Number: [id number] [facility] Shahbaz Vallesr 2010 Expires: 2014 PayID: [id number] [address] [address] Effective: 2014 Policy Number: [id number] Medicare Blue Ppo Shahbaz Graham Group Number: [id number] [address] PayID: [id number] [place] [address] Advance Directives Description No Information Available Problems [...] Sex Unknown Marital Status 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 10/29/ Raghu Guzman M.D. Lisinopril 10/29/ Hx Tablets 20mg 1 po qd Qutaybeh 2012 - S. 07/16/ Raghu Guzman M.D. Advair Diskus 03/27/ Hx Aerosol 250-50mcg/ 1unit 1 puff po Qutaybeh 2012 - Dose s bid S. 10/29/ Raghu 2012 [facility] Demadex 02/07/ Hx Tablets 20mg 1/2 po qd Qutaybeh 2010 - S. 10/29/ Raghu Guzman M.D. Lisinopril 05/11/ Hx Tablets 20mg 90tab 1 po qd Qutaybeh 2009 - s S. 10/29/ Raghu 2012 [facility] HCTZ 03/10/ Hx 25mg. 30uni 1 po qd Qutaybeh 2009 - ts S. 10/29/ haydah 2012 , [facility] Demadex 03/08/ Hx Tablets 20mg 60tab one po qd Qutaybeh 2009 - s S. 02/07/ haydah 2010 , [facility] Demadex 02/08/ Hx Tablets 20mg 60tab 1 po bid Qutaybeh 2009 - s S. 03/08/ haydah 2009 , [facility] Lasix 12/27/ Hx Tablets 40mg 1 po qam, Qutaybeh 2009 - 08/28 po qpm S. 02/08/ haydah 2009 , [facility] Lasix 12/17/ Hx Tablets 20mg 1 po qd Qutaybeh 2009 - S. 12/27/ hayd2009 , [facility] Lasix 12/06/ Hx Tablets 40mg 1 po qd Qutaybeh 2009 - S. 12/17/ hayd2009 , [facility] Lasix 11/10/ Hx Tablets 40mg 90tab 1 and 08/28 Qutaybeh 2009 - s po bid S. 12/06/ yd2009 , [facility] Aldactone 11/10/ Hx Tablets 25mg 30tab 1 po qd Qutaybeh 2009 - s S. 12/06/ yd2009 , [facility] HCTZ 11/10/ Hx 25mg. 60uni 2 po qd Qutaybeh 2009 - ts S. 03/10/ yd2009 , [facility] Cozaar 11/10/ Hx Tablets 50mg 90tab 1 po qd Qutaybeh 2009 - s S. 10/29/ hayd2012 , [facility] Lasix 07/29/ Hx Tablets 40mg 30tab 1 po qd Qutaybeh 2008 - s S. 11/10/ haydah 2009 , [facility] C-Pap 07/13/ Hx qhs Qutaybeh 2008 - S. 03/27/ hayd 2012 , [facility] Hyzaar 06/02/ Hx Tablets 50-12.5mg 30tab one po qd Qutaybeh 2008 - s S. 11/10/ haydah 2009 , [facility] Amlodipine 03/30/ Hx Tablets 5mg 45tab 1 and / Qutaybeh Besylate 2009 - s tablet [facility] Norvasc 09/09/ Hx Tablets 5mg 45tab 1and / po Qutaybeh 2008 - s qd S. 03/30/ [facility] Lasix 07/31/ Hx Tablets 40mg 30tab 1 po qd Qutaybeh 2007 - s S. 07/29/ [facility] , [facility] Lisinopril 07/31/ Hx Tablets 20mg 180ta 1 po bid Qutaybeh 2008 - bs S. 05/11/ [facility] , [facility] Lisinopril 05/18/ Hx Tablets 20mg 45tab 1 tablet in Qutaybeh 2008 - s am and 08/28 S. 07/31/ in pm [facility] 2007 , [facility] Daranthonycet-N 01/28/ Hx Tablets 100 90tab 1 po qd Qutaybeh 100 2007 - s S. 07/31/ yd2007 , [facility] Lisinopril 01/28/ Hx Tablets 20mg 1 PO am and Qutaybeh 2007 - 08/28 pm S. 01/28/ [facility] 2007 , [facility] Lisinopril 01/28/ Hx Tablets 10mg 90tab take two Qutaybeh 2007 - tabs in the S. 05/18/ Am and one yd2007 tab in the , MAurelia PM Aspirin 09/25/ Hx Chewtabs 81mg 1 PO qd Qutaybeh 2007 - S. 12/07/ [facility] , [facility] Lopressor 09/25/ Hx Tablets 50mg 30tab 1/2 po qd Qutaybeh 2007 - s S. 12/02/ [facility] , [facility] Mobic 09/18/ Hx Tablets 7.5mg 30tab 1 PO qd Qutaybeh 2007 - s S. 01/28/ ydah 2007 , [facility] Lisinopril 09/18/ Hx Tablets 20mg 1 PO qd Qutaybeh 2007 - S. 01/28/ [facility] Lopressor 09/18/ Hx Tablets 25mgM 30tab 1 po qd Alexandratafrancis 2007 - s S. 09/18/ Raghu Alexander M.D. Lopressor 09/18/ Hx Tablets 25mg 30tab one po qd Qutaybeh 2007 - s S. 09/25/ Raghu Alexander M.D. Amoxicillin / Hx 875mg 1 po tid Unknown 0000 - 2010 Nasal Bowen / Hx Solution prn Unknown 0000 - [...] Hx 10mg Unknown ER - 2013 Finasteride / Hx 5mg Unknown - 2013 Tudorza / [...] Inj, Administered Injection Bao Fry Regadenoson, 019 Luong, 0.1 MG M.D., FACC, FASNC Technetium TC Administered Injection Bao Ang 99M 019 Luong, Tetrofosmin, M.D., FACC, Per Unit Dose FASNC Up To 40 Millicuries Technetium TC Administered Injection Bao Ang 99M 019 Luong, Tetrofosmin, M.D., FACC, Per Unit Dose FASNC Up To 40 [...] Available Vital Signs Date Vital Result Comment 08/30/2018 1:00pm Height 72 inches 6'0" Weight [...] Date Facility Test Result H/L Range Note Laboratory test 10/04/2017 [facility] Hemoglobin A1c 5.2 % N 4.0-5.6 1 finding [address] [place] [address] [phone] Laboratory test 09/19/2016 [facility] PSA Screening 0.953 ng/mL N 0-4.000 2 finding [address] [place] [address] [phone] Iron & Iron 09/19/2016 [facility] Iron 156 g/dL N 50-212 Binding Capacity [address] [place] [address] [phone] Unsaturated Iron Binding 229 g/dL N Total Iron Binding Capacity 385 g/dL N 250-450 % Iron Saturation 41 % N 15-55 CBC Auto Diff 09/19/2016 [facility] White Blood 8.7 10^3/uL N 3.5-10.8 [address] [facility] [place] [address] [phone] Red Blood Count 5.24 10^6/uL N 4.0-5.4 [...] % 0 N Comp Metabolic Panel 09/19/2016 [facility] Sodium 136 mmol/L N 133-145 [address] [place] [address] [phone] Potassium 4.2 mmol/L N 3.5-5.0 Chloride 102 [...] 77.2 N >60 Egfr 99.3 N >60 3 Bariatric Panel Post 09/19/2016 [facility] Ferritin 76.5 ng/mL N 24-336 Op [address] [place] [address] [phone] Vitamin B12 1081 pg/mL High 180-914 4 Folic Acid (Folate) > 20.00 ng/mL N >3.99 Vitamin D Total 25(Oh) 46.6 ng/mL N 30-50 Vitamin B1 (Whole Blood) 231 nmol/L Abnormal 70-180 5 Vitamin E Level 6.1 mg/L N 5.5 - 17.0 6 CBC Auto Diff 08/10/2015 [facility] White Blood 9.2 10^3/uL N 3.5-10.[address] [place] [address] [phone] Red Blood Count 4.88 10^6/uL N 4.0-5.4 [...] Cells % 0 N Laboratory test 08/10/2015 [facility] Lactic Acid 1.2 mmol/L N 0.5-2.0 7 finding [address] [place] [address] [phone] Comp Metabolic 08/10/2015 [facility] Sodium 141 mmol/L N 133- 145 Panel [address] [place] [address] [phone] Potassium 4.2 mmol/L N 3.5-5.0 Chloride 105 [...] 56.2 N >60 Egfr 72.3 N >60 8 Laboratory 08/10/2015 [facility] Troponin-I 0.00 N <0.03 [address] (TnI) ng/[place] [address] [phone] Laboratory 09/16/2014 [facility] Vitamin B1 215 Abnormal 70- 180 10, test finding [address] Whole Blood nmol/L 11 [place] [address] [phone] Vitamin E Level 7.2 mg/L N 5.5 - 17.0 12 Vitamin D, 25 09/16/2014 [facility] 25-Hydroxy Vitamin <4.0 ng/ mL N Hydroxy [address] [place] [address] [phone] 25-Hydroxy Vitamin D3 53 ng/mL N 25-Hydroxy Vitamin D Total 53 ng/mL N 13 Laboratory test 09/16/2014 [facility] Ferritin 56.7 ng/mL N 24 -336 [address] [place] [address] [phone] Vitamin B12 906 pg/mL N 180-914 15 Folate > 20.00 ng/mL N >3.99 16 Iron & Iron Binding 09/16/2014 [facility] Iron 105 g/dL N 50 -[address] [place] [address] [phone] Unsaturated Iron Binding 277 g/dL N Total Iron Binding Capacity 382 g/dL N 250-450 % Iron Saturation 27 % N 15-55 Comp Metabolic Panel 09/16/2014 [facility] Sodium 137 mmol/L N 133-[address] [place] [address] [phone] Potassium 4.5 mmol/L N 3.5-5.0 Chloride 103 [...] 74.1 N >60 Egfr 95.3 N >60 17 CBC Auto Diff 09/16/2014 [facility] White Blood 6.3 10^3/uL N 4.8-10.[address] [place] [address] [phone] Red Blood Count 4.85 10^6/uL N 4.0-5.4 [...] Nucleated Red Blood Cells % 0.1 N CBC Auto Diff 02/28/2014 [facility] White Blood 5.6 10^3/uL N 4.8-10.[address] [place] [address] [phone] Red Blood Count 4.81 10^6/uL N 4.0-5.4 [...] Cells % 0 N Comp Metabolic Panel 02/28/2014 [facility] Sodium 138 mmol/L N 133-[address] [place] [address] [phone] Potassium 4.1 mmol/L N 3.7-5.6 Chloride 103 [...] 66.7 N >60 Egfr 85.8 N >60 18 Iron & Iron Binding 02/28/2014 [facility] Iron 65 g/dL N 50- [address] [place] [address] [phone] Unsaturated Iron Binding 327 g/dL N Total Iron Binding Capacity 392 g/dL N 250-450 % Iron Saturation 17 % N 15-55 Laboratory test 02/28/2014 [facility] Ferritin 43.8 ng/mL N 24 -[address] [place] [address] [phone] Vitamin B12 674 pg/mL N 180-914 19 Folate > 20.00 ng/mL N >3.99 Vitamin D, 25 02/28/2014 [facility] 25-Hydroxy Vitamin <4.0 ng/ mL N Hydroxy [address] [place] [address] [phone] 25-Hydroxy Vitamin D3 48 ng/mL N 25-Hydroxy Vitamin D Total 48 ng/mL N 20 Laboratory test 02/28/2014 [facility] Vitamin B1 147 nmol/L N 70-180 21 finding [address] [employer] [place] [address] [phone] Vitamin E Level 6.9 mg/L N 5.5 - 17.0 22 CBC Auto Diff 08/29/2013 [facility] White Blood 6.2 10^3/uL 4.8-10.[address] [place] [address] [phone] Red Blood Count 4.28 10^6/uL 4.0-5.4 Hemoglobin [...] 0-2 Nucleated Red Blood Cells % 0.1 Inr/Protime 08/29/2013 [facility] Inr 1.43 High 0.85-1.06 [address] [place] [address] [phone] Laboratory test 08/29/2013 [facility] Activated 28.0 24.0- 36.1 finding [address] [facility] [place] [address] Thrombo Time [phone] Basic Metabolic 08/29/2013 [facility] Sodium 136 mmol/L 133- 145 Panel [address] [place] [address] [phone] Potassium 4.4 mmol/L 3.5-5.0 Chloride 100 mmol/L Low 101-711 Co2 Carbon Dioxide 27.0 mmol/L 22-32 Anion Gap 9.0 mmol/L 2-11 Glucose 95 mg/dL 70-100 Blood Urea Nitrogen 27 mg/dL High 6-24 Creatinine 1.10 mg/dL 0.50-1.40 BUN/Creatinine Ratio 24.5 High 8-20 Calcium 9.5 mg/dL 8.1-9.9 Egfr Non- 67.4 >60 Egfr 86.7 >60 23 Basic Metabolic Panel 07/23/2013 [facility] Sodium 136 mmol/L 133-145 [address] [place] [address] [phone] Potassium 4.9 mmol/L 3.5-5.0 Chloride 101 mmol/L 101-111 Co2 Carbon Dioxide 26.0 mmol/L 22-32 Anion Gap 9.0 mmol/L 2-11 Glucose 88 mg/dL 70-100 Blood Urea Nitrogen 30 mg/dL High 6-24 Creatinine 1.10 mg/dL 0.50-1.40 BUN/Creatinine Ratio 27.3 High 8-20 Calcium 9.6 mg/dL 8.1-9.9 Egfr Non- 67.4 >60 Egfr 86.7 >60 24 Laboratory test 03/07/2013 [facility] Vitamin B1 112 nmol/L 70-180 [address] [place] [place] [address] [phone] Vitamin E Level 6.7 mg/L 5.5 - 17.0 26 Vitamin D, 25 03/07/2013 [facility] 25-Hydroxy Vitamin <4.0 ng/ mL Hydroxy [address] [place] [address] [phone] 25-Hydroxy Vitamin D3 45 ng/mL 25-Hydroxy Vitamin D Total 45 ng/mL 27 Laboratory test 03/07/2013 [facility] Ferritin 184 ng/mL 24- 336 [address] [place] [address] [phone] Vitamin B12 332 pg/mL 180-914 29 Folate 15.2 ng/mL 2-16 30 Iron & Iron Binding 03/07/2013 [facility] Iron 83 g/dL 45- [address] [place] [address] [phone] Unsaturated Iron Binding 270 g/dL Total Iron Binding Capacity 353 g/dL 250-450 % Iron Saturation 24 % 15-55 Comp Metabolic Panel 03/07/2013 [facility] Sodium 136 mmol/L 133-[address] [place] [address] [phone] Potassium 4.0 mmol/L 3.5-5.0 Chloride 104 mmol/L [...] Egfr Non- 55.8 >60 Egfr 71.7 >60 31 CBC Auto 03/07/2013 [facility] White Blood 4.7 10^3/uL Low 4.8 -10.[address] [place] [address] [phone] Red Blood Count 4.43 10^6/uL 4.0-5.4 Hemoglobin [...] 0-2 Nucleated Red Blood Cells % 0 Basic Metabolic Panel 10/22/2012 [facility] Sodium 141 mmol/L 133-[address] [place] [address] [phone] Potassium 4.3 mmol/L 3.5-5.0 Chloride 107 mmol/L 101-111 Co2 Carbon Dioxide 25.0 mmol/L 22-32 Anion Gap 9.0 mmol/L 2-11 Glucose 99 mg/dL 70-100 Blood Urea Nitrogen 23 mg/dL 6-24 Creatinine 1.30 mg/dL 0.50-1.40 BUN/Creatinine Ratio 17.7 8-20 Calcium 9.6 mg/dL 8.1-9.9 Egfr Non- 55.8 >60 Egfr 71.7 >60 32 Basic Metabolic Panel 03/18/2012 [facility] Sodium 138 mmol/L 135-[address] [place] [address] [phone] Potassium 3.7 mmol/L 3.5-5.0 Chloride 104 mmol/L 101-111 Co2 (Carbon Dioxide) 26.0 mmol/L 22-32 Anion Gap 8.0 mmol/L 2-11 33 Glucose 108 mg/dL High 70-100 BUN 37 mg/dL High 6-24 Creatinine 1.3 mg/dL 0.50-1.40 One Over Creatinine 0.76 BUN/Creatinine Ratio 28.5 High 8-20 Calcium 9.6 mg/dL 8.1-9.9 eGFR Non- 55.9 > 60 eGFR 71.9 > 60 34 Basic Metabolic Panel 02/23/2012 [facility] Sodium 137 mmol/L 135-[address] [place] [address] [phone] Potassium 4.7 mmol/L 3.5-5.0 Chloride 102 mmol/L 101-111 Co2 (Carbon Dioxide) 26.0 mmol/L 22-32 Anion Gap 9.0 mmol/L 2-11 35 Glucose 111 mg/dL High 70-100 BUN 43 mg/dL High 6-24 Creatinine 1.3 mg/dL 0.50-1.40 One Over Creatinine 0.76 BUN/Creatinine Ratio 33.1 High 8-20 Calcium 9.7 mg/dL 8.1-9.9 eGFR Non- 55.9 > 60 eGFR 71.9 > 60 36 Laboratory test 02/23/2012 [facility] Hemoglobin A1c 6.2 % High Less Than [address] [place] [address] [phone] Basic Metabolic 02/18/2011 [facility] Sodium 139 135-[address] mmol/[place] [address] [phone] Potassium 4.7 mmol/L 3.5-5.0 Chloride 104 mmol/L 101-111 Co2 (Carbon Dioxide) 28.0 mmol/L 22-32 Anion Gap 7.0 mmol/L 2-11 38 Glucose 119 mg/dL High 70-100 BUN 39 mg/dL High 6-24 Creatinine 1.20 mg/dL 0.50-1.40 One Over Creatinine 0.80 BUN/Creatinine Ratio 32.5 High 8-20 Calcium 9.4 mg/dL 8.1-9.9 eGFR Non- 61.6 > 60 eGFR 79.2 > 60 39 1 Therapeutic target for the treatment of diabetes mellitus patients is <7% HBA1C, and in selective patients <6.0%. Please refer to [place] [employer] diabetic care guidelines for further information. 2 Serum levels of PSA measured using the [employer] ApS DXI Hybritech immunoassay should not be interpreted as absolute evidence of the presence or absence of disease. The PSA value should be used in conjunction with other pertinent clinical diagnostic procedures. The values obtained with different assay methods or kits cannot be used interchangeably. 3 Because ethnic data is not always readily [...] 15-29 5 Kidney failure <15 (or dialysis) 4 Normal Range 180 to 914 Indeterminate Range 145 to 180 Deficient Range <145 5 ADDITIONAL INFORMATION This test was developed and its performance characteristics determined by [facility] in a manner consistent with CLIA requirements. This test has not been cleared or approved by the U.S. Food and Drug Administration. Test Performed by: [facility] - [address] [address] Electrical Continuity Tester: Yayo Ewing II, M.D., Ph.D. 6 ADDITIONAL INFORMATION This test was developed and its performance characteristics determined by [facility] in a manner consistent with CLIA requirements. This test has not been cleared or approved by the U.S. Food and Drug Administration. Test Performed by: [facility] - [address] [address] Electrical Continuity Tester: Yayo Ewing II, M.D., Ph.D. 7 [facility] Severe Sepsis and Septic Shock Management Bundle Measure requires all lactic acids initially measuring >2.0mmol/L be repeated. 8 Because ethnic data is not always readily [...] 15-29 5 Kidney failure <15 (or dialysis) 9 Reference Range and Interpretation: TnI (ng/mL) Interpretation Less Than 0.03 ng/mL Not supportive of diagnosis of CA 0.03 - 0.50 ng/mL Indeterminate: suggest serial studies if clinically indicated. Greater than 0.5 ng/mL Consistent with diagnosis of CA 10 FASTING 11 Test Performed by: [place] [address] Electrical Continuity Tester: Katharina Cutler, Ph.D. 12 Test Performed by: [place] [address] Electrical Continuity Tester: Katharina Cutler, Ph.D. 13 Interpretation: 51-80 ng/mL (increased risk of hypercalciuria) REFERENCE VALUE 25-HYDROXY D TOTAL (D2+D3) Optimum levels in the healthy population are 20-50, patients with bone disease may benefit from higher levels within this range. Test Performed by: [address] [address] Electrical Continuity Tester: Tristian Bryant M.D. 14 FASTING 15 Normal Range 180 to 914 Indeterminate Range 145 to 180 Deficient Range <145 16 FASTING 17 Because ethnic data is not always readily [...] 15-29 5 Kidney failure <15 (or dialysis) 18 Because ethnic data is not always readily [...] 15-29 5 Kidney failure <15 (or dialysis) 19 Normal Range 180 to 914 Indeterminate Range 145 to 180 Deficient Range <145 20 -- REFERENCE VALUE -- 25-HYDROXY D TOTAL (D2+D3) Optimum levels in the healthy population are 20-50, patients with bone disease may benefit from higher levels within this range. Test Performed by: [address] [address] Electrical Continuity Tester: Fran Shukla III, M.D. 21 Test Performed by: [place] [address] Electrical Continuity Tester: Katharina Cutler, Ph.D. 22 Test Performed by: [place] [address] Electrical Continuity Tester: Katharina Cutler, Ph.D. 23 Because ethnic data is not always readily [...] 15-29 5 Kidney failure <15 (or dialysis) 24 Because ethnic data is not always [...] 5 Kidney failure <15 (or dialysis) 25 Test Performed by: [place] [address] Electrical Continuity Tester: Katharina Cutler, Ph.D. 26 Test Performed by: [place] [address] Electrical Continuity Tester: Katharina Cutler, Ph.D. 27 -- REFERENCE VALUE -- 25-HYDROXY D TOTAL (D2+D3) Optimum levels in the normal population are 25-80 Test Performed by: [address] [address] Electrical Continuity Tester: Fran Shukla III, M.D. 28 FASTING 29 FASTING 30 FASTING 31 Because ethnic data is not always readily [...] 15-29 5 Kidney failure <15 (or dialysis) 32 Because ethnic data is not always readily [...] 15-29 5 Kidney failure <15 (or dialysis) 33 Anion gap measurement may be of limited value in the presence of any alkalosis, especially in a combined acid base disorder. . 34 Because ethnic data is not always [...] IN SELECTIVE PATIENTS <6.0%. PLEASE REFER TO [place] [employer] DIABETIC CARE GUIDELINES FOR FURTHER [...] (or dialysis) Procedures Date Code Description Status 08/28/2018 71962 Myocardial Perfusion Imaging Tomographic (Spect) Multiple Completed Studies 08/13/2018 85880 EKG Tracing & Interpretation Completed 07/12/2018 43768 Inject/Drain Joint/Bursa Major W/O US Completed 05/20/2018 60162 Inject/Drain Joint/Bursa Major W/O US Completed 03/11/2018 55893 Inject/Drain Joint/Bursa Major W/O US Completed 12/24/2017 17075 EKG Tracing & Interpretation Completed 10/10/2017 78407 Inject/Drain Joint/Bursa Major W/O US Completed 04/23/2017 46234 ECHO Transthoracic, Real-Time 2D With Doppler And Color Completed Flow 04/16/2017 88340 Holter Monitor Review (24 hr)dr review & interp only Completed 04/11/2017 87200 ECG Monitor/Recording W/Visual Superimposition Scanning Completed 03/28/2017 80425 EKG Tracing & Interpretation Completed 03/05/2017 33839 Inject/Drain Joint/Bursa Major W/O US Completed 02/14/2017 83319 Inject/Drain Joint/Bursa Major W/O US Completed 11/15/2016 38743 Diffusing Capacity Completed 11/15/2016 79805 Plethysmography Determination Lung Volumes & Per Airway Completed Resist 11/15/2016 27573 Pulmonary Stress Test Simple Completed 11/15/2016 34422 Pulmonary Function><Bronchodil Completed 09/11/201601664 Inject/Drain Joint/Bursa Major W/O US Completed 09/06/201629720 Inject/Drain Joint/Bursa Major W/O US Completed 08/01/2016 38027 EKG Tracing & Interpretation Completed 03/08/201651132 Inject/Drain Joint/Bursa Major W/O US Completed 03/08/201625465 Inject/Drain Joint/Bursa Major W/O US Completed 01/14/2016 17648 ECHO Transthoracic, Real-Time 2D With Doppler And Color Completed Flow 12/16/2015 48761 EKG Tracing & Interpretation Completed 06/16/201523822 Inject/Drain Joint/Bursa Major W/O US Completed 06/04/2015 90513 EKG Tracing & Interpretation Completed 09/18/2014 52890 ECHO Transthoracic, Real-Time 2D With Doppler And Color Completed Flow 09/16/2014 06077 EKG Tracing & Interpretation Completed 07/15/201486516 Inject/Drain Joint/Bursa Major W/O US Completed 03/02/201488114 Inject/Drain Joint/Bursa Major W/O US Completed 02/24/2014 65199 EKG Tracing & Interpretation Completed 12/24/2013 03157 Rad Exam; Ankle Comp Completed 12/24/2013 98506 Rad Exam; Foot Limited Completed 12/08/201339070 Inject/Drain Joint/Bursa Major W/O US Completed 09/13/2013 06258 EKG, Interpretation Only Completed 07/23/2013 38992 Xray Knee 3 Views Completed 07/23/2013 24537 Xray Knee 3 Views Completed 07/23/201349255 Inject/Drain Joint/Bursa Major W/O US Completed 07/15/2013 36058 Holter Monitor Review (24 hr)dr mendez & chandler only Completed 07/04/2013 95514 EKG Tracing & Interpretation Completed 10/29/2012 72336 EKG Tracing & Interpretation Completed 10/22/2012 88230 ECHO Transthoracic, Real-Time 2D With Doppler And Color Completed Flow 09/11/2012 30375 EKG, Interpretation Only Completed 09/10/2012 60437 EKG, Interpretation Only Completed 08/23/2012 06770 EKG, Interpretation Only Completed 03/27/2012 20173 EKG Tracing & Interpretation Completed 07/26/2011 10387 EKG Tracing & Interpretation Completed 01/11/2011 84282 ECHO Transthoracic, Real-Time 2D With Doppler And Color Completed Flow 12/23/2010 03133 EKG Tracing & Interpretation Completed 06/22/2010 05587 EKG Tracing & Interpretation Completed 02/08/2010 41724 EKG Tracing & Interpretation Completed 11/09/2009 31571 ECHO Transthoracic, Real-Time 2D With Doppler And Color Completed Flow 10/28/2009 82397 EKG Tracing & Interpretation Completed 06/02/2009 09227 EKG, Interpretation Only Completed 06/02/2009 81627 EKG Tracing & Interpretation Completed 08/14/2008 14871 Stress ECHO Interpretation/Report Hospital Completed 08/14/2008 67201 Stress ECHO Interpretation/Report Hospital Completed 08/14/2008 48959 Treadmill Interp/Report Only Completed 08/14/2008 56582 Treadmill Interp/Report Only Completed 08/14/2008 17534 Stress Test Supervsn W/Out I/R Completed 08/07/2008 08597 Echocardiogram Completed 08/07/2008 51547 Pulse Doppler & Continuous Wave Completed 08/07/2008 86124 Pulse Doppler & Continuous Wave Completed 08/07/2008 78085 Color Doppler Completed 07/31/2008 77312 EKG Tracing & Interpretation Completed 09/20/2007 54288 Selective Coronary Angioplasty Completed 09/20/2007 73193 S/I/R Inj Proc Vent And Or Atrial Completed 09/20/2007 43227 S/I/R Inj Proc Vent And Or Atrial Completed 09/20/2007 46324 Coronary Angiography Completed 09/20/2007 63500 Inj Proc LFT Vent/LFT Atrl Angio Completed 09/20/2007 97395 Inj Proc LFT Vent/LFT Atrl Angio Completed 09/20/2007 80331 Left Heart Catheterization Completed 09/19/2007 88563 Echocardiogram Completed 09/19/2007 68717 Echocardiogram Completed 09/19/2007 [address] Echocardiogram Completed 09/19/2007 82991 Pulse Doppler & Continuous Wave Completed 09/19/2007 68572 Pulse Doppler & Continuous Wave Completed 09/19/2007 33326 Color Doppler Completed 09/19/2007 20098 Color Doppler Completed 09/19/2007 57027 Color Doppler Completed 09/18/2007 74034 EKG Tracing & Interpretation Completed 09/16/2007 40219 Treadmill Interp/Report Only Completed 09/16/2007 41003 Treadmill Interp/Report Only Completed 09/16/2007 43911 Stress Test Supervsn W/Out I/R Completed Encounters Type Date Location Provider Dx Diagnosis Office Visit 08/13/2018 [facility] Coby S. 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 knee Office Visit 05/11/2017 [facility] Pamela Rubinis, I44.0 Atrioventricular 3:00p Cardiology PA block, first degree E66.01 Morbid (severe) obesity due to excess calories I10 Essential (primary) hypertension I34.0 Nonrheumatic mitral (valve) insufficiency Office Visit 03/28/2017 1:40p [facility] Qutaybeh S. R06.02 Shortness of Maghaydah, M.D. 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 knee S46.011A Strain of musc/tend the rotator cuff of right shoulder, init M75.51 Bursitis of right shoulder S46.012D Strain of musc/tend the rotator cuff of left shoulder, subs Office Visit 11/30/2016 1:45p [facility] And Kate J44.9 Chronic [facility] obstructive Insurance Claims Examiner pulmonary disease, unspecified G47.33 Obstructive sleep apnea (adult) (pediatric) E66.01 Morbid (severe) obesity due to excess calories Office Visit 10/30/2016 1:30p [facility] Kate J44.9 [facility] obstructive Insurance Claims Examiner pulmonary disease, unspecified G47.33 Obstructive sleep apnea (adult) (pediatric) E66.01 Morbid (severe) obesity due to excess calories Z12.2 Encntr screen for malignant neoplasm of respiratory organs Office Visit 10/11/2016 3:00p Surgical Hira Nieves, Z98.84 [facility], FACS surgery status R06.02 Shortness of breath Office Visit 09/06/2016 [facility] Philip Talamantes, M17.12 Unilateral primary 1:45p Services Of M.DKashmir osteoarthritis, left C.M.A. knee S46.012D Strain of musc/tend the rotator cuff of left shoulder, subs S46.011A Strain of musc/tend the rotator cuff of right shoulder, init Office Visit 08/01/2016 3:20p [facility] Qutaybeh S. I10 Essential Baltazar Krishnamurthy (primary) hypertension E66.01 Morbid (severe) obesity due to excess calories I25.10 Athscl heart disease of [place] coronary artery w/o ang pctrs Office Visit 03/08/2016 [facility] Talamantes M17.12 Unilateral primary 10:15a Services Of Baltazar osteoarthritis, left C.M.A. knee S46.012A Strain of musc/tend the rotator cuff of left shoulder, init Office Visit 12/16/2015 4:00p [facility] Qutaybeh S. I10 Essential Baltazar Krishnamurthy (primary) hypertension I45.0 Right fascicular block E66.01 Morbid (severe) obesity due to excess calories R94.31 Abnormal electrocardiogram [ECG] [EKG] I25.10 Athscl heart disease of [place] coronary artery w/o ang pctrs R06.02 Shortness of breath Office Visit 06/09/2015 [facility] Scarlett M17.12 Unilateral primary 3:30p Services Of SCOTT Hopper osteoarthritis, left C.M.A. knee Office Visit 06/04/2015 [facility] Qutaybeh S. I10 Essential (primary) 8:20a Cardiology viktor Krishnamurthy M.D. I45.0 Right fascicular block E66.01 Morbid (severe) obesity due to excess calories R94.31 Abnormal electrocardiogram [ECG] [EKG] I25.10 Athscl heart disease of [place] coronary artery w/o ang pctrs Office Visit 10/21/2014 [facility] Kulwinder Delarosa5.97 Osteoarthrosis 1:00p Services Of [place] Shane Unspec Genlzd Or C.M.A. Localized Ankle & Foot 715.37 Osteoarthrosis Localzd Not Spec Prime Or 2Ndy Ankle & Foot Office Visit 09/16/2014 [facility] Coby S. 401.1 Hypertension 2:40p Cardiology Baltazar Krishnamurthy Benign 278.01 Obesity Morbid 426.4 Right Bundle Branch Block 786.05 Shortness Of Breath Office Visit 07/15/2014 [facility] Scarlett Butler.96 Osteoarthrosis 8:00a [facility] Of SCOTT Hopper Unspec Genlzd Or C.M.A. Localized Lower Leg Office Visit 07/01/2014 Nia Butler.97 Osteoarthrosis 3:00p [facility] Of SCOTT Hopper Unspec Genlzd Or C.M.A. Localized Ankle & Foot Office Visit 06/16/2014 Nia Delarosa5.97 Osteoarthrosis 1:30p Services Of [place] Shane Genlzd Or C.M.A. Localized Ankle & Foot Office Visit 03/02/2014 [facility] Philip Talamantes 716.96 Arthropathy Unspec 3:15p Services Of [place] Lower Leg C.M.A. Office Visit 02/24/2014 Hema Tenorio SKashmir 401.1 Hypertension Benign 3:00p Cardiology Bal[facility]zar Krishnamurthy 278.01 Obesity Morbid 426.4 Right Bundle Branch Block 786.05 Shortness Of Breath Office Visit 02/11/2014 Nia Delarosa5.97 Osteoarthrosis 1:45p [facility] Of [place] Shane Genashleigh Or C.M.A. Localized Ankle & Foot Office Visit 12/24/2013 Nia Miramontes 716.96 Arthropathy Unspec 2:00p Services Of [place] Shane Lower Leg C.M.A. Office Visit 12/08/2013 [facility] Philip Talamantes 716.96 Arthropathy Unspec 2:45p Services Of [place] Lower Leg C.M.A. 727.06 Tenosynovitis Foot & Ankle Office Visit 09/16/2013 10:54a [facility], Romeo Garay 995.91 Sepsis Hospitalists Baltazar Jerry 595.0 Cystitis Acute 492.8 Emphysema Other 780.53 Hypersomnia W/ Sleep Apnea Unspecified Office Visit 09/15/2013 10:54a [facility], Romeo Garay 995.91 Sepsis Hospitalists [place] Jerry 492.8 Emphysema Other Office Visit 09/14/2013 10:52a [facility] Brianna Padilla 995.91 [facility] 595.0 Cystitis Acute 492.8 Emphysema Other 780.53 Hypersomnia W/ Sleep Apnea Unspecified Office Visit 09/13/2013 10:49a [facility] Brianna Padilla 995.91 [facility] 595.0 Cystitis Acute 492.8 Emphysema Other 780.53 Hypersomnia W/ Sleep Apnea Unspecified Office Visit 07/23/2013 8:00a [facility] Philip Talamantes, 716.96 Arthropathy Unspec Services Of [place] Lower Leg C.MKashmirAKashmir V54.81 Aftercare Following Joint Replacement V43.65 Knee Replacement By Other Means Office Visit 07/12/2013 12:01p [facility] Jennifer 584.9 Acute Kidney Assoc,hemant Hdez M.D. Failure, Hospitalists Unspecified 401.9 Hypertension Unspec 492.8 Emphysema Other 278.01 Obesity Morbid Office Visit 07/11/2013 [facility] Wil 584.9 Acute Kidney 12:00p Assoc,hemant Estrella N.P. Failure, Hospitalists Unspecified 401.9 Hypertension Unspec 492.8 Emphysema Other 278.01 Obesity Morbid Office Visit 07/04/2013 [facility] Coby High 401.1 Hypertension 9:00a Cardiology [facility] Krishnamurthy Benign 426.4 Right Bundle Branch Block 794.31 Electrocardiogram (ECG) (EKG) Abnormal 782.3 Edema 492.8 Emphysema Other 414.01 Coronary Atherosclerosis [place] Office Visit 11/12/2012 3:00p [facility] Nurse Visit cc 401.1 Hypertension Benign Office Visit 10/29/2012 8:40a [facility] Qutaybeh S. 426.4 Right Bundle Maghaydah, Branch Block M.D. 794.31 Electrocardiogram (ECG) (EKG) Abnormal 782.3 Edema 401.1 Hypertension Benign Office 09/11/2012 [facility] Qutaybpriyanka S. 794.31 Electrocardiogram Visit 2:27p Cardiology [facility] Krishnamurthy (ECG) (EKG) Abnormal 414.01 Coronary Atherosclerosis [place] 401.0 Hypertension Malignant 786.50 Pain Chest Unspec 782.3 Edema 272.4 Hyperlipidemia Other Unspec Office Visit 03/27/2012 2:40p [facility] Qutaybeh S. 492.8 Emphysema Other Baltazar Krishnamurthy 278.01 Obesity Morbid 414.01 Coronary Atherosclerosis [place] 786.05 Shortness Of Breath 782.3 Edema 426.4 Right Bundle Branch Block 401.1 Hypertension Benign Office Visit 07/26/2011 4:00p [facility] Qutaybeh S. Maghaydah, 782.3 Edema M.D. 786.05 Shortness Of Breath 794.31 Electrocardiogram (ECG) (EKG) Abnormal 426.4 Right Bundle Branch Block 401.1 Hypertension Benign 414.01 Coronary Atherosclerosis [place] Office Visit 12/23/2010 3:00p [facility] Qutaybeh S. Maghaydah, 782.3 Edema M.D. 786.05 Shortness Of Breath 794.31 Electrocardiogram (ECG) (EKG) Abnormal 426.4 Right Bundle Branch Block 401.1 Hypertension Benign 414.01 Coronary Atherosclerosis [place] Office Visit 09/23/2010 2:20p [facility] Qutaybeh S. Maghaydah, 782.3 Edema M.D. 414.01 Coronary Atherosclerosis [place] 401.1 Hypertension Benign Office Visit 06/22/2010 9:40a [facility] Qutaybeh S. Maghaydah, 782.3 Edema M.D. 414.01 Coronary Atherosclerosis [place] 426.4 Right Bundle Branch Block Office Visit 03/10/2010 10:30a [facility] Qutaybeh S. Maghaydah, 782.3 Edema M.D. 401.1 Hypertension Benign 414.01 Coronary Atherosclerosis [place] Office Visit 02/08/2010 9:40a [facility] Qutaybeh S. Maghaydah, 782.3 Edema M.D. 401.1 Hypertension Benign 414.01 Coronary Atherosclerosis [place] 786.05 Shortness Of Breath 426.4 Right Bundle Branch Block Office Visit 01/12/2010 9:00a [facility] Alexandrataybpriyanka Haines. Raghu, 782.3 Edema M.D. 401.1 Hypertension Benign 414.01 Coronary Atherosclerosis [place] 786.05 Shortness Of Breath Office Visit 12/06/2009 3:20p [facility] Coby High Raghu, 782.3 Edema M.D. 401.1 Hypertension Benign 414.01 Coronary Atherosclerosis [place] Office Visit 11/10/2009 [facility] Qutaybeh S. 414.01 Coronary 3:00p Brittney Krishnamurthy M.D. Atherosclerosis [place] 401.1 Hypertension Benign 782.3 Edema 786.05 Shortness Of Breath Office Visit 10/28/2009 [facility] Qutaybeh S. 414.01 Coronary 11:10a Brittney Krishnamurthy M.D. Atherosclerosis [place] 401.1 Hypertension Benign 782.3 Edema Office Visit 07/13/2009 [facility] Qutaybeh S. 414.01 Coronary 2:00p Brittney Krishnamurthy M.D. Atherosclerosis [place] 401.1 Hypertension Benign Office Visit 06/02/2009 [facility] Qutaybeh S. 414.01 Coronary 8:40a Brittney Krishnamurthy M.D. Atherosclerosis [place] 426.4 Right Bundle Branch Block 401.1 Hypertension Benign 786.05 Shortness Of Breath 782.3 Edema Office Visit 11/19/2008 [facility] Qutaybeh S. 414.01 Coronary 8:40a Brittney Krishnamurthy M.D. Atherosclerosis [place] 426.4 Right Bundle Branch Block 401.1 Hypertension Benign 786.05 Shortness Of Breath 782.3 Edema Office Visit 09/09/2008 [facility] Qutaybeh S. 414.01 Coronary 11:40a Brittney Krishnamurthy M.D. Atherosclerosis [place] 426.4 Right Bundle Branch Block 401.0 Hypertension Malignant 786.05 Shortness Of Breath 782.3 Edema Office Visit 08/14/2008 [facility] Qutaybeh S. 414.01 Coronary 11:00a Brittney Krishnamurthy M.D. Atherosclerosis [place] 786.50 Pain Chest Unspec 401.0 Hypertension Malignant Office Visit 07/31/2008 [facility] Qutaybeh S. 414.01 Coronary 8:40a Cardiology Baltazar Krishnamurthy Atherosclerosis [place] 401.0 Hypertension Malignant 426.4 Right Bundle Branch Block 786.05 Shortness Of Breath 794.31 Electrocardiogram (ECG) (EKG) Abnormal 782.3 Edema Office Visit 01/29/2008 [facility] Brockybeh S. 414.01 Coronary 8:40a Cardiology Baltazar Krishnamurthy Atherosclerosis [place] 401.0 Hypertension Malignant 426.4 Right Bundle Branch Block 278.0 Obesity Office Visit 09/25/2007 [facility] Yaredeh S. 414.01 Coronary 8:20a Cardiology Baltazar Krishnamurthy Atherosclerosis [place] 786.05 Shortness Of Breath 401.0 Hypertension Malignant 794.31 Electrocardiogram (ECG) (EKG) Abnormal V72.81 Examination Preoperative Cardiovascular Office Visit 09/20/2007 7:00a [facility] Coby S. 786.05 Shortness Of Myra KrishnamurthyDKashmir Breath 794.30 Cardiovascular Function Study Unspec Abnormal 401.1 Hypertension Benign Office Visit 09/18/2007 [facility] Yaredeh S. 401.0 Hypertension 9:40a Cardiology Baltazar Krishnamurthy Malignant 786.05 Shortness Of Breath 794.31 Electrocardiogram (ECG) (EKG) Abnormal 278.0 Obesity Plan of Treatment Future Appointment(s):09/23/2018 8:00 am - Fernanda Stanley M.D. at [facility]09/10/2018 11:30 am - Rico Haines PA-C at [facility]09/10/2018 11:30 am - CHECO Pelayo at [facility]09/04/2018 10:00 am - [place] [facility] Schedule at [facility]09/10/2018 11:30 am - Fernanda Stanley M.D. at [facility]12/09/2018 11:30 am - Kate Boyce MD at [facility]
--- OUTSIDE RECORDS SUMMARY | 2018-09-10 08:34 | XMS REPORT | Continuity of Care Document ---
:1950 External Reference #:[id number] Author Name Giselle Ambrose NP Address [address] [place] [address] Care Team Providers Name Role Phone Giselle Ambrose NP Care Team Information [employer] Unavailable Payers Type Date Identification Numbers Payment Provider Subscriber Effective: Policy Number: [id number] [employer] Shahbaz Graham 2017 [facility] PayID: [id number] [address] ARELY Reynoso [address] Advance Directives Description No Information Available Problems Description No Information Family History Description No Information Available Social History Type Date Description Comments Sex Unknown Allergies, Adverse Reactions, Alerts Description No Known Drug Allergies Medications Medication Date Status Form Strength Qnty SIG Indications Ordering Provider Amoxicillin/Cl 08/21/ Active Tablets 875-125mg 14tabs Take 1 Giselle avulanate 2018 tablet by SAUL Ambrose Potassium mouth twice daily for 7 days Torsemide / Active Tablets 10mg Take One Unknown 0000 Tablet By Mouth Every Day as Directed Anoro Ellipta / Active Aerosol 62.5-25mcg Inhale One Unknown 0000 /Inh puff By Mouth Every Day as Directed Metoprolol / Active Tablets ER 25mg Take 1 2 Unknown Succinate ER 0000 24HR Tablet By Mouth Daily Omeprazole / Active Capsules 40mg Unknown 0000 DR Storm HFA / Active Aerosol 108(90Base Unknown 0000 ) mcg/Act Aspirin 81 Low / Active Chewtabs 81mg 1 by mouth Unknown Dose 0000 every day Flintstones / Active Chewtabs 1 by mouth Unknown Gummies 0000 every day Complete B-12 Dots 00/ Active Tablets 500mcg Unknown 0000 Dispers Calcium 1000 + 00/ Active Tablets 1000-800mg Unknown D 0000 -Unit Doxycycline 08/13/ Hx Capsules 100mg 14caps 1 capsule Giselle Hyclgary 2017 - by mouth SAUL Ambrose twice 2018 daily x 7 days Immunizations CPT Code Status Date Vaccine Lot # [id number] Given 06/17/2018 Influenza Virus Vaccine, Quadrivalent, 3 Yr > Quad, Preserv Free Vital Signs Date Vital Result Comment 08/21/2018 10:55am Weight 325.00 lb Weight 147.420 kg BP Systolic 140 mmHg BP Diastolic 82 mmHg Heart Rate 76 /min Body Temperature 96.5 F Respiratory Rate 28 /min O2 % BldC Oximetry 96 % 08/13/2018 2:30pm Weight 324.00 lb Weight 146.966 kg BP Systolic 140 mmHg BP Diastolic 82 mmHg Heart Rate 68 /min Body Temperature 98.2 F Respiratory Rate 18 /min Height 72 inches 6'0" BMI (Body Mass Index) 43.9 kg/m2 O2 % BldC Oximetry 95 % Results Description No Information Available Procedures Description No Information Available Encounters Description No Information Available Plan of Treatment Future Appointment(s):09/09/2018 3:15 pm - Giselle Ambrose NP at [facility] [id number] 2:00 pm - Giselle Ambrose NP at [facility] [id number]/21/2018 - Giselle Ambrose NPJ01.90 Acute sinusitis, unspecified
--- OUTSIDE RECORDS SUMMARY | 2018-09-10 08:34 | XMS REPORT | Continuity of Care Document ---
:1950 External Reference #:[id number] Author Name Giselle Ambrose NP Address [address] [place] [place] [address] Care Team Providers Name Role Phone Giselle Ambrose NP Care Team Information [employer] Unavailable Payers Type Date Identification Numbers Payment Provider Subscriber Effective: Policy Number: [id number] [employer] Shahbaz Graham [address] [facility] PayID: [id number] [address] ARE[place] Reyn[place] [address] Advance Directives Description No Information Available Problems Description No Information Family History Description No Information Available Social History Type Date Description Comments Sex Unknown Allergies, Adverse Reactions, Alerts Description No Known Drug Allergies Medications Medication Date Status Form Strength Qnty SIG Indications Ordering Provider Torsemide Active Tablets 10mg Take One Unknown 000 Tablet By Mouth Every Day as Directed Anoro Ellipta Active Aerosol 62.5-25mcg Inhale One Unknown 000 /Inh puff By Mouth Every Day as Directed Metoprolol Active Tablets ER 25mg Take 1 2 Unknown Succinate ER 000 24HR Tablet By Mouth Daily Omeprazole Active Capsules 40mg Unknown 000 DR Ventolin HFA Active Aerosol 108(90Base Unknown 000 ) mcg/Act Aspirin 81 Low Active Chewtabs 81mg 1 by mouth Unknown Dose 000 every day Flintstones 0 Active Chewtabs 1 by mouth Unknown Gummies 000 every day Complete B-12 Dots 0 Active Tablets 500mcg Unknown 000 Dispers Calcium 1000 + 0 Active Tablets 1000-800mg Unknown D 000 -Unit Immunizations CPT Code Status Date Vaccine Lot # [id number] Given 06/17/2018 Influenza Virus Vaccine, Quadrivalent, 3 Yr > Quad, Preserv Free Vital Signs Date Vital Result Comment 08/13/2018 2:30pm Weight 324.00 lb Weight 146.966 kg BP Systolic 140 mmHg BP Diastolic 82 mmHg Heart Rate 68 /min Body Temperature 98.2 F Respiratory Rate 18 /min Height 72 inches 6'0" BMI (Body Mass Index) 43.9 kg/m2 O2 % BldC Oximetry 95 % Results Description No Information Available Procedures Description No Information Available Encounters Description No Information Available Plan of Treatment Future Appointment(s):10/22/2018 2:00 pm - Giselle Ambrose NP at Main [id number] - Giselle Ambrose NPZ01.818 Encounter for other preprocedural examinationFollow up:.J01.90 Acute sinusitis, unspecified
--- OUTSIDE RECORDS SUMMARY | 2018-09-10 08:34 | XMS REPORT | Continuity of Care Document ---
:1950 External Reference #:[id number] Author Name Vidya Everett Care Team Providers Name Role Phone Carlos Xavier NP Primary Care Physician Unavailable Payers Type Date Identification Numbers Payment Provider Subscriber Effective: Policy Number: [id number] [facility] Shahbaz Vallesr 2010 Expires: 2014 PayID: [id number] [address] [place] [address] Effective: 2014 Policy Number: [id number] Medicare Blue Ppo Shahbaz Graham Group Number: [id number] PO [address] PayID: [id number] [place] [address] Advance Directives Description No Information Available Problems [...] Onset: 10/30/2016 Chronic obstructive lung disease Kate Bocye MD Active Onset: 10/30/2016 Obstructive sleep apnea [...] Sex Unknown Marital Status 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 10/29/ Raghu Guzman M.D. [...] qd Qutaybeh 2009 - ts S. 03/10/ hayd2009 , [facility] Cozaar 11/10/ Hx Tablets 50mg 90tab 1 po qd Qutaybeh 2009 - s S. 10/29/ hayd2012 , [facility] Lasix 07/29/ Hx Tablets 40mg 30tab 1 po qd Qutaybeh 2008 - s S. 11/10/ haydah 2009 , [facility] C-Pap 07/13/ Hx qhs Qutaybeh 2008 - S. 03/27/ yd2011 , [facility] Hyzaar 06/02/ Hx Tablets 50-12.5mg 30tab one po qd Qutaybeh 2008 - s S. 11/10/ haydah 2009 , [facility] Amlodipine 03/30/ Hx Tablets 5mg 45tab 1 and / Qutaybeh Besylate 2009 - s tablet [facility] Norvasc 09/09/ Hx Tablets 5mg 45tab 1and / po [facility]aybeh 2009 - [facility] Lasix 07/31/ Hx Tablets 40mg 30tab 1 po qd [facility]utaybeh 2008 - s [facility]. [facility]/29/ [facility] , [facility] Lisinopril 07/31/ Hx Tablets 20mg 180ta 1 po bid Qutaybeh 2008 - bs S. 05/11/ [facility] , [facility] Lisinopril 05/18/ Hx Tablets 20mg 45tab 1 tablet in Qutaybeh 2008 - s am and 08/28 S. 07/31/ in pm [facility] 2007 , [facility] Jeffcet-N 01/28/ Hx Tablets 100 90tab 1 po qd Qutaybeh 100 2007 - s S. 07/31/ yd2007 , [facility] Lisinopril 01/28/ Hx Tablets 20mg 1 PO am and Qutaybeh 2007 - 08/28 pm S. 01/28/ [facility] 2007 , [facility] Lisinopril 01/28/ Hx Tablets 10mg 90tab take two Qutaybeh 2007 - s tabs in the S. 05/18/ Am and one yd2007 tab in the , MAurelia PM Aspirin 09/25/ Hx Chewtabs 81mg 1 PO qd Qutaybeh 2007 - S. 12/07/ [facility] , [facility] Lopressor 09/25/ Hx Tablets 50mg 30tab /2 po qd Qutaybeh 2007 - s S. 12/02/ [facility] , [facility] Mobic 09/18/ Hx Tablets 7.5mg 30tab 1 PO qd Qutaybeh 2007 - s S. 01/28/ ydah 2007 , [facility] Lisinopril 09/18/ Hx Tablets 20mg 1 PO qd [facility]utaybeh 2007 - [facility]. [facility]/28/ [facility] Lopressor 09/18/ Hx Tablets 25mgM 30tab 1 po qd Qutayb 2007 - s S. 09/18/ Raghu Alexander M.D. Lopressor 09/18/ Hx Tablets 25mg 30tab one po qd Qutaybeh 2007 - S. 09/25/ Raghu Alexander M.D. Amoxicillin / Hx 875mg 1 po tid Unknown 0000 - 2010 Nasal Fyffe / Hx Solution prn Unknown 0000 - [...] Form Strength Qnty SIG Indications Ordering Provider Depomedrol Administered Injection Fernanda 40MG 018 Jaden, [...] Available Vital Signs Date Vital Result Comment 08/13/2018 3:30pm Height 72 inches 6'0" Weight [...] Result H/L Range Note Laboratory test 10/04/2017 [facility] Hemoglobin A1c 5.2 % N 4.0-5.6 [address] [place] [address] [phone] Bariatric Panel 09/19/2016 [facility] Ferritin 76.5 ng/mL N 24 -336 Post Op [address] [place] [address] [phone] Vitamin B12 1081 pg/mL High 180-914 2 Folic Acid (Folate) > 20.00 ng/mL N >3.99 Vitamin D Total 25(Oh) 46.6 ng/mL N 30-50 Vitamin B1 (Whole Blood) 231 nmol/L Abnormal 70-180 3 Vitamin E Level 6.1 mg/L N 5.5 - 17.0 4 Comp Metabolic Panel 09/19/2016 [facility] Sodium 136 mmol/L N 133-[address] [place] [address] [phone] Potassium 4.2 mmol/L N 3.5-5.0 Chloride 102 [...] N >60 Egfr 99.3 N >60 5 CBC Auto Diff 09/19/2016 [facility] White Blood 8.7 10^3/uL N 3.5-10.[address] [place] [address] [phone] Red Blood Count 5.24 10^6/uL N 4.0-5.4 [...] Nucleated Red Blood Cells % 0 N Iron & Iron Binding 09/19/2016 [facility] Iron 156 g/dL N 50 -[address] [place] [address] [phone] Unsaturated Iron Binding 229 g/dL N Total Iron Binding Capacity 385 g/dL N 250-450 % Iron Saturation 41 % N 15-55 Laboratory test 09/19/2016 [facility] PSA Screening 0.953 N 0- 4.000 [address] ng/[place] [address] [phone] CBC Auto Diff 08/10/2015 [facility] White Blood 9.2 N 3.5- 10.[address] Count 10^3/uL [place], [place] [phone] Red Blood Count 4.88 10^6/uL N 4.0-5.4 [...] Cells % 0 N Laboratory test 08/10/2015 [facility] Lactic Acid 1.2 mmol/L N 0.5-2.0 7 finding [address] [place] [address] [phone] Comp Metabolic 08/10/2015 [facility] Sodium 141 mmol/L N 133- 145 Panel [address] [place] [address] [phone] Potassium 4.2 mmol/L N 3.5-5.0 Chloride 105 [...] Egfr 72.3 N >60 8 Laboratory 08/10/2015 [facility] Troponin-I 0.00 N <0.03 9 test finding [address] (TnI) ng/[place] [address] [phone] Laboratory 09/16/2014 [facility] Vitamin B1 215 Abnormal 70- 180 10, test finding 101 [facility] Whole Blood nmol/L 11 [place] [address] [phone] Vitamin E Level 7.2 mg/L N 5.5 - 17.0 12 Vitamin D, 25 09/16/2014 [facility] 25-Hydroxy Vitamin <4.0 ng/ mL N Hydroxy [address] [place] [address] [phone] 25-Hydroxy Vitamin D3 53 ng/mL N 25-Hydroxy Vitamin D Total 53 ng/mL N 13 Laboratory test 09/16/2014 [facility] Ferritin 56.7 ng/mL N 24 -336 14 finding [address] [place] [address] [phone] Vitamin B12 906 pg/mL N 180-914 15 Folate > 20.00 ng/mL N >3.99 16 Iron & Iron Binding 09/16/2014 [facility] Iron 105 g/dL N 50 -212 Capacity [address] [place] [address] [phone] Unsaturated Iron Binding 277 g/dL N Total Iron Binding Capacity 382 g/dL N 250-450 % Iron Saturation 27 % N 15-55 Comp Metabolic Panel 09/16/2014 [facility] Sodium 137 mmol/L N 133-145 [address] [place] [address] [phone] Potassium 4.5 mmol/L N 3.5-5.0 Chloride 103 [...] N >60 17 CBC Auto Diff 09/16/2014 [facility] White Blood 6.3 10^3/uL N 4.8-10.[address] [place] [address] [phone] Red Blood Count 4.85 10^6/uL N 4.0-5.4 [...] % 0.1 N CBC Auto Diff 02/28/2014 [facility] White Blood 5.6 10^3/uL N 4.8-10.[address] [place] [address] [phone] Red Blood Count 4.81 10^6/uL N 4.0-5.4 [...] % 0 N Comp Metabolic Panel 02/28/2014 [facility] Sodium 138 mmol/L N 133-145 [address] [place] [address] [phone] Potassium 4.1 mmol/L N 3.7-5.6 Chloride 103 [...] >60 18 Iron & Iron Binding 02/28/2014 [facility] Iron 65 g/dL N 50- 212 [address] [place] [address] [phone] Unsaturated Iron Binding 327 g/dL N Total Iron Binding Capacity 392 g/dL N 250-450 % Iron Saturation 17 % N 15-55 Laboratory test 02/28/2014 [facility] Ferritin 43.8 ng/mL N 24 -[address] [place] [address] [phone] Vitamin B12 674 pg/mL N 180-914 19 Folate > 20.00 ng/mL N >3.99 Vitamin D, 25 02/28/2014 [facility] 25-Hydroxy Vitamin <4.0 ng/ mL N Hydroxy [address] [place] [address] [phone] 25-Hydroxy Vitamin D3 48 ng/mL N 25-Hydroxy Vitamin D Total 48 ng/mL N 20 Laboratory test 02/28/2014 [facility] Vitamin B1 147 nmol/L N 70-180 [address] [place] [address] [phone] Vitamin E Level 6.9 mg/L N 5.5 - 17.0 22 CBC Auto Diff 08/29/2013 [facility] White Blood 6.2 10^3/uL 4.8-10.[address] [place] [address] [phone] Red Blood Count 4.28 10^6/uL 4.0-5.4 Hemoglobin [...] Red Blood Cells % 0.1 Inr/Protime 08/29/2013 [facility] Inr 1.43 High 0.85-1.[address] [place] [address] [phone] Laboratory test 08/29/2013 [facility] Activated 28.0 24.0- 36.[address] [place] [address] Thrombo Time [phone] Basic Metabolic 08/29/2013 [facility] Sodium 136 mmol/L 133- [address] [place] [address] [phone] Potassium 4.4 mmol/L 3.5-5.0 Chloride 100 mmol/L Low 101-111 Co2 Carbon Dioxide 27.0 mmol/L 22-32 Anion Gap 9.0 mmol/L 2-11 Glucose 95 mg/dL 70-100 Blood Urea Nitrogen 27 mg/dL High 6-24 Creatinine 1.10 mg/dL 0.50-1.40 BUN/Creatinine Ratio 24.5 High 8-20 Calcium 9.5 mg/dL 8.1-9.9 Egfr Non- 67.4 >60 Egfr 86.7 >60 23 Basic Metabolic Panel 07/23/2013 [facility] Sodium 136 mmol/L 133-[address] [place] [address] [phone] Potassium 4.9 mmol/L 3.5-5.0 Chloride 101 mmol/L 101-111 Co2 Carbon Dioxide 26.0 mmol/L 22-32 Anion Gap 9.0 mmol/L 2-11 Glucose 88 mg/dL 70-100 Blood Urea Nitrogen 30 mg/dL High 6-24 Creatinine 1.10 mg/dL 0.50-1.40 BUN/Creatinine Ratio 27.3 High 8-20 Calcium 9.6 mg/dL 8.1-9.9 Egfr Non- 67.4 >60 Egfr 86.7 >60 24 Laboratory test 03/07/2013 [facility] Vitamin B1 112 nmol/L 70-180 [address] [place] [address] [phone] Vitamin E Level 6.7 mg/L 5.5 - 17.0 26 Vitamin D, 25 03/07/2013 [facility] 25-Hydroxy Vitamin <4.0 ng/ mL Hydroxy [address] [place] [address] [phone] 25-Hydroxy Vitamin D3 45 ng/mL 25-Hydroxy Vitamin D Total 45 ng/mL 27 Laboratory test 03/07/2013 [facility] Ferritin 184 ng/mL 24- 336 [address] [place] [address] [phone] Vitamin B12 332 pg/mL 180-914 29 Folate 15.2 ng/mL 2-16 30 Iron & Iron Binding 03/07/2013 [facility] Iron 83 g/dL 45- [address] [place] [address] [phone] Unsaturated Iron Binding 270 g/dL Total Iron Binding Capacity 353 g/dL 250-450 % Iron Saturation 24 % 15-55 Comp Metabolic Panel 03/07/2013 [facility] Sodium 136 mmol/L 133-[address] [place] [address] [phone] Potassium 4.0 mmol/L 3.5-5.0 Chloride 104 mmol/L [...] Egfr 71.7 >60 31 CBC Auto 03/07/2013 [facility] White Blood 4.7 10^3/uL Low 4.8 -10.[address] [place] [address] [phone] Red Blood Count 4.43 10^6/uL 4.0-5.4 Hemoglobin [...] Cells % 0 Basic Metabolic Panel 10/22/2012 [facility] Sodium 141 mmol/L 133-145 [address] [place] [address] [phone] Potassium 4.3 mmol/L 3.5-5.0 Chloride 107 mmol/L 101-111 Co2 Carbon Dioxide 25.0 mmol/L 22-32 Anion Gap 9.0 mmol/L 2-11 Glucose 99 mg/dL 70-100 Blood Urea Nitrogen 23 mg/dL 6-24 Creatinine 1.30 mg/dL 0.50-1.40 BUN/Creatinine Ratio 17.7 8-20 Calcium 9.6 mg/dL 8.1-9.9 Egfr Non- 55.8 >60 Egfr 71.7 >60 32 Basic Metabolic Panel 03/18/2012 [facility] Sodium 138 mmol/L 135-145 [address] [place] [address] [phone] Potassium 3.7 mmol/L 3.5-5.0 Chloride 104 mmol/L 101-111 Co2 (Carbon Dioxide) 26.0 mmol/L 22-32 Anion Gap 8.0 mmol/L 2-11 33 Glucose 108 mg/dL High 70-100 BUN 37 mg/dL High 6-24 Creatinine 1.3 mg/dL 0.50-1.40 One Over Creatinine 0.76 BUN/Creatinine Ratio 28.5 High 8-20 Calcium 9.6 mg/dL 8.1-9.9 eGFR Non- 55.9 > 60 eGFR 71.9 > 60 34 Laboratory test 02/23/2012 [facility] Hemoglobin A1c 6.2 % High Less Than [address] 6[address]0 [place] [address] [phone] Basic Metabolic 02/23/2012 [facility] Sodium 137 135-[address] mmol/[place] [address] [phone] Potassium 4.7 mmol/L 3.5-5.0 Chloride 102 mmol/L 101-111 Co2 (Carbon Dioxide) 26.0 mmol/L 22-32 Anion Gap 9.0 mmol/L 2-11 36 Glucose 111 mg/dL High 70-100 BUN 43 mg/dL High 6-24 Creatinine 1.3 mg/dL 0.50-1.40 One Over Creatinine 0.76 BUN/Creatinine Ratio 33.1 High 8-20 Calcium 9.7 mg/dL 8.1-9.9 eGFR Non- 55.9 > 60 eGFR 71.9 > 60 37 Basic Metabolic Panel 02/18/2011 [facility] Sodium 139 mmol/L 135-[address] [place] [address] [phone] Potassium 4.7 mmol/L 3.5-5.0 Chloride 104 mmol/L [...] in selective patients <6.0%. Please refer to [place] [employer] diabetic care guidelines for further information. 2 Normal Range 180 to 914 Indeterminate Range 145 to 180 Deficient Range <145 3 ADDITIONAL INFORMATION This test was developed and its performance characteristics determined by [facility] in a manner consistent with CLIA requirements. This test has not been cleared or approved by the U.S. Food and Drug Administration. Test Performed by: [facility] [place] [address] Woodworking Machine Setter: Yayo Ewing II, M.D., Ph.D. 4 ADDITIONAL INFORMATION This test was developed and its performance characteristics determined by [facility] in a manner consistent with CLIA requirements. This test has not been cleared or approved by the U.S. Food and Drug Administration. Test Performed by: [facility] [place] [address] Woodworking Machine Setter: Yayo Ewing II, M.D., Ph.D. 5 Because ethnic data is not always [...] 5 Kidney failure <15 (or dialysis) 6 Serum levels of PSA measured using the [employer] DXI Hybritech immunoassay should not be interpreted as absolute evidence of the presence or absence of disease. The PSA value should be used in conjunction with other pertinent clinical diagnostic procedures. The values obtained with different assay methods or kits cannot be used interchangeably. 7 [facility] Severe Sepsis and Septic Shock [...] 0.03 ng/mL Not supportive of diagnosis of HI 0.03 - 0.50 ng/mL Indeterminate: suggest serial studies if clinically indicated. Greater than 0.5 ng/mL Consistent with diagnosis of HI 10 FASTING 11 Test Performed by: [place] [address] Woodworking Machine Setter: Katharina Cutler, Ph.D. 12 Test Performed by: [place] [address] Woodworking Machine Setter: Katharina Cutler, Ph.D. 13 Interpretation: 51-80 ng/mL (increased risk of hypercalciuria) REFERENCE VALUE 25-HYDROXY D TOTAL (D2+D3) Optimum levels in the healthy population are 20-50, patients with bone disease may benefit from higher levels within this range. Test Performed by: [address] [address] Woodworking Machine Setter: Tristian Bryant M.D. 14 FASTING 15 Normal [...] levels within this range. Test Performed by: [address] [address] Woodworking Machine Setter: Fran Shukla III, M.D. 21 Test Performed by: [address], [place] [address] Woodworking Machine Setter: Katharina Cutler, Ph.D. 22 Test Performed by: [facility] [place] [address] Woodworking Machine Setter: Katharina Cutler, Ph.D. 23 Because ethnic data [...] <15 (or dialysis) 25 Test Performed by: [facility] [place] [address] Woodworking Machine Setter: Katharina Cutler, Ph.D. 26 Test Performed by: [facility] [place] [address] Woodworking Machine Setter: Katharina Cutler, Ph.D. 27 -- REFERENCE VALUE -- 25-HYDROXY D TOTAL (D2+D3) Optimum levels in the normal population are 25-80 Test Performed by: [facility] [address] [address] Woodworking Machine Setter: Fran Shukla III, M.D. 28 FASTING 29 [...] 5 Kidney failure <15 (or dialysis) 35 THERAPEUTIC TARGET FOR THE TREATMENT OF DIABETES MELLITUS PATIENTS IS <7% HBA1C, AND IN SELECTIVE PATIENTS <6.0%. PLEASE REFER TO [place] [employer] DIABETIC CARE GUIDELINES FOR FURTHER INFORMATION. 36 Anion gap measurement may be of limited value in the presence of any alkalosis, especially in a combined acid base disorder. . 37 Because ethnic data is not always readily [...] 15-29 5 Kidney failure <15 (or dialysis) 38 Anion gap measurement may be of [...] (or dialysis) Procedures Date Code Description Status 08/13/2018 55466 EKG Tracing & Interpretation Completed 07/12/201818391 Inject/Drain Joint/Bursa Major W/O US Completed 05/20/201844044 Inject/Drain Joint/Bursa Major W/O US Completed 03/11/201889138 Inject/Drain Joint/Bursa Major W/O US Completed 12/24/2017 75145 EKG Tracing & Interpretation Completed 10/10/201782559 Inject/Drain Joint/Bursa Major W/O US Completed 04/23/2017 88716 ECHO Transthoracic, Real-Time 2D With Doppler And Color Completed Flow 04/16/2017 20642 Holter Monitor Review (24 hr)dr review & interp only Completed 04/11/2017 40394 ECG Monitor/Recording W/Visual Superimposition Scanning Completed 03/28/2017 09568 EKG Tracing & Interpretation Completed 03/05/201771094 Inject/Drain Joint/Bursa Major W/O US Completed 02/14/201712214 Inject/Drain Joint/Bursa Major W/O US Completed 11/15/2016 65594 Diffusing Capacity Completed 11/15/2016 06706 Plethysmography Determination Lung Volumes & Per Airway Completed Resist 11/15/2016 95009 Pulmonary Stress Test Simple Completed 11/15/2016 68253 Pulmonary Function><Bronchodil Completed 09/11/201662919 Inject/Drain Joint/Bursa Major W/O US Completed 09/06/201645040 Inject/Drain Joint/Bursa Major W/O US Completed 08/01/2016 28177 EKG Tracing & Interpretation Completed 03/08/201604317 Inject/Drain Joint/Bursa Major W/O US Completed 03/08/201633803 Inject/Drain Joint/Bursa Major W/O US Completed 01/14/2016 19850 ECHO Transthoracic, Real-Time 2D With Doppler And Color Completed Flow 12/16/2015 05141 EKG Tracing & Interpretation Completed 06/16/201549734 Inject/Drain Joint/Bursa Major W/O US Completed 06/04/2015 40467 EKG Tracing & Interpretation Completed 09/18/2014 73803 ECHO Transthoracic, Real-Time 2D With Doppler And Color Completed Flow 09/16/2014 82293 EKG Tracing & Interpretation Completed 07/15/201419383 Inject/Drain Joint/Bursa Major W/O US Completed 03/02/201418617 Inject/Drain Joint/Bursa Major W/O US Completed 02/24/2014 67030 EKG Tracing & Interpretation Completed 12/24/2013 45129 Rad Exam; Ankle Comp Completed 12/24/2013 74342 Rad Exam; Foot Limited Completed 12/08/201311665 Inject/Drain Joint/Bursa Major W/O US Completed 09/13/2013 64854 EKG, Interpretation Only Completed 07/23/2013 80483 Xray Knee 3 Views Completed 07/23/2013 71019 Xray Knee 3 Views Completed 07/23/201366655 Inject/Drain Joint/Bursa Major W/O US Completed 07/15/2013 54071 Holter Monitor Review (24 hr)dr review & interp only Completed 07/04/2013 14974 EKG Tracing & Interpretation Completed 10/29/2012 70597 EKG Tracing & Interpretation Completed 10/22/2012 68493 ECHO Transthoracic, Real-Time 2D With Doppler And Color Completed Flow 09/11/2012 68812 EKG, Interpretation Only Completed 09/10/2012 21871 EKG, Interpretation Only Completed 08/23/2012 92110 EKG, Interpretation Only Completed 03/27/2012 50367 EKG Tracing & Interpretation Completed 07/26/2011 70394 EKG Tracing & Interpretation Completed 01/11/2011 14195 ECHO Transthoracic, Real-Time 2D With Doppler And Color Completed Flow 12/23/2010 68558 EKG Tracing & Interpretation Completed 06/22/2010 43272 EKG Tracing & Interpretation Completed 02/08/2010 41321 EKG Tracing & Interpretation Completed 11/09/2009 18692 ECHO Transthoracic, Real-Time 2D With Doppler And Color Completed Flow 10/28/2009 50013 EKG Tracing & Interpretation Completed 06/02/2009 26701 EKG, Interpretation Only Completed 06/02/2009 38630 EKG Tracing & Interpretation Completed 08/14/2008 97940 Stress ECHO Interpretation/Report Hospital Completed 08/14/2008 08095 Stress ECHO Interpretation/Report Hospital Completed 08/14/2008 60200 Treadmill Interp/Report Only Completed 08/14/2008 46414 Treadmill Interp/Report Only Completed 08/14/2008 99068 Stress Test Supervsn W/Out I/R Completed 08/07/2008 30632 Echocardiogram Completed 08/07/2008 19125 Pulse Doppler & Continuous Wave Completed 08/07/2008 21458 Pulse Doppler & Continuous Wave Completed 08/07/2008 72414 Color Doppler Completed 07/31/2008 55719 EKG Tracing & Interpretation Completed 09/20/2007 93148 Selective Coronary Angioplasty Completed 09/20/2007 94015 S/I/R Inj Proc Vent And Or Atrial Completed 09/20/2007 32851 S/I/R Inj Proc Vent And Or Atrial Completed 09/20/2007 37327 Coronary Angiography Completed 09/20/2007 27948 Inj Proc LFT Vent/LFT Atrl Angio Completed 09/20/2007 04742 Inj Proc LFT Vent/LFT Atrl Angio Completed 09/20/2007 39072 Left Heart Catheterization Completed 09/19/2007 49257 Echocardiogram Completed 09/19/2007 27972 Echocardiogram Completed 09/19/2007 02063 Echocardiogram Completed 09/19/2007 05153 Pulse Doppler & Continuous Wave Completed 09/19/2007 18599 Pulse Doppler & Continuous Wave Completed 09/19/2007 32793 Color Doppler Completed 09/19/2007 78642 Color Doppler Completed 09/19/2007 99655 Color Doppler Completed 09/18/2007 83305 EKG Tracing & Interpretation Completed 09/16/2007 13188 Treadmill Interp/Report Only Completed 09/16/2007 76580 Treadmill Interp/Report Only Completed 09/16/2007 25222 Stress Test Supervsn W/Out I/R Completed Encounters Type Date Location Provider Dx Diagnosis Office Visit 06/21/2018 Orthopedic Fernanda Stanley M25.562 Pain in left knee 11:30a Services Of [facility] MK[facility]mirD. M25.462 Effusion, left knee E66.01 Morbid (severe) obesity due to excess calories M17.12 Unilateral primary osteoarthritis, left knee Office Visit 03/18/2018 1:00p Orthopedic Services Fernanda Stanley M25.562 Pain in left Of C.M.A. M.D. [...] osteoarthritis, left knee Office Visit 12/24/2017 4:00p [facility]y High J44.9 Chronic Cardiology Bal[facility]zar Krishnamurthy obstructive pulmonary disease, unspecified E66.01 Morbid (severe) obesity due to excess calories I44.0 Atrioventricular block, first degree I10 Essential (primary) hypertension I34.0 Nonrheumatic mitral (valve) insufficiency I45.10 Unspecified right bundle-branch block Office Visit 12/06/2017 11:30a Pulmonology And Kate J01.80 Other acute Sleep Services Of MD Carli sinusitis Staff Psychologist J44.9 Chronic obstructive pulmonary disease, unspecified G47.33 Obstructive sleep apnea (adult) (pediatric) E66.01 Morbid (severe) obesity due to excess calories Z87.891 Personal history of nicotine dependence Office Visit 10/01/2017 Orthopedic Philip Talamantes, M17.12 Unilateral primary 10:45a Services Of [facility] osteoarthritis, left C.M.A. knee Office Visit 05/11/2017 Hema Kumar, I44.0 Atrioventricular 3:00p Cardiology PA block, first degree E66.01 Morbid (severe) obesity due to excess calories I10 Essential (primary) hypertension I34.0 Nonrheumatic mitral (valve) insufficiency Office Visit 03/28/2017 1:40p [facility] Alexandrataybpriyanka S. R06.02 Shortness of Baltazar Krishnamurthy breath I25.10 Athscl heart disease of [place] coronary artery w/o ang pctrs I71.9 Aortic aneurysm of unspecified site, without rupture I10 Essential (primary) hypertension I51.7 Cardiomegaly E66.01 Morbid (severe) obesity due to excess calories Z68.41 Body mass index (BMI) 40.0-44.9, adult I44.0 Atrioventricular block, first degree I45.10 Unspecified right bundle-branch block Office Visit 02/14/2017 Orthopedic Philip Talamantes, M17.12 Unilateral primary 10:30a Services Of [facility]. osteoarthritis, left C.M.A. knee S46.011A Strain of musc/tend the rotator cuff of right shoulder, init M75.51 Bursitis of right shoulder S46.012D Strain of musc/tend the rotator cuff of left shoulder, subs Office Visit 11/30/2016 1:45p Pulmonology And Kate J44.9 Chronic Sleep Services Of MD Carli obstructive [facility] pulmonary disease, unspecified G47.33 Obstructive sleep apnea (adult) (pediatric) E66.01 Morbid (severe) obesity due to excess calories Office Visit 10/30/2016 1:30p Pulmonology And Kate J44.9 [facility] [place] Carli obstructive [facility] pulmonary disease, unspecified G47.33 Obstructive sleep apnea (adult) (pediatric) E66.01 Morbid (severe) obesity due to excess calories Z12.2 Encntr screen for malignant neoplasm of respiratory organs Office Visit 10/11/2016 3:00p Surgical Hira Nieves, Z98.84 [facility] , FACS surgery status R06.02 Shortness of breath Office Visit 09/06/2016 Orthopedic Philip Talamantes, M17.12 Unilateral primary 1:45p Services Of [place] osteoarthritis, left C.M.A. knee S46.012D Strain of musc/tend the rotator cuff of left shoulder, subs S46.011A Strain of musc/tend the rotator cuff of right shoulder, init Office Visit 08/01/2016 3:20p [facility] Qutaybeh S. I10 Essential Bal[facility] Krishnamurthy (primary) hypertension E66.01 Morbid (severe) obesity due to excess calories I25.10 Athscl heart disease of [place] coronary artery w/o ang pctrs Office Visit 03/08/2016 Orthopedic Philip Talamantes, M17.12 Unilateral primary 10:15a Services Of [place] osteoarthritis, left C.M.A. knee S46.012A Strain of musc/tend the rotator cuff of left shoulder, init Office Visit 12/16/2015 4:00p [facility] Coby S. I10 Essential Baltazar Krishnamurthy (primary) hypertension I45.0 Right fascicular block E66.01 Morbid (severe) obesity due to excess calories R94.31 Abnormal electrocardiogram [ECG] [EKG] I25.10 Athscl heart disease of [place] coronary artery w/o ang pctrs R06.02 Shortness of breath Office Visit 06/09/2015 Orthopedic Scarlett M17.12 Unilateral primary 3:30p Services Of SCOTT Hopper osteoarthritis, left C.M.A. knee Office Visit 06/04/2015 [facility] Qutafrancis S. I10 Essential (primary) 8:20a Cardiology viktor Krishnamurthy M.D. I45.0 Right fascicular block E66.01 Morbid (severe) obesity due to excess calories R94.31 Abnormal electrocardiogram [ECG] [EKG] I25.10 Athscl heart disease of [place] coronary artery w/o joseph pctrs Office Visit 10/21/2014 Orthopedic Kulwinder 715.97 Osteoarthrosis 1:00p Services Of Bal[place] Shane Unspec Genlzd Or C.M.A. Localized Ankle & Foot 715.37 Osteoarthrosis Localzd Not Spec Prime Or 2Ndy Ankle & Foot Office Visit 09/16/2014 [facility] Coby S. 401.1 Hypertension 2:40p Cardiology Baltazar Krishnamurthy Benign 278.01 Obesity Morbid 426.4 Right Bundle Branch Block 786.05 Shortness Of Breath Office Visit 07/15/2014 Orthopedic Scarlett 715.96 Osteoarthrosis 8:00a Services Of SCOTT Hopper Unspec Genlzd Or C.M.A. Localized Lower Leg Office Visit 07/01/2014 Nia Pantoja 715.97 Osteoarthrosis 3:00p Services Of SCOTT Hopper Unspec Genlzd Or C.M.A. Localized Ankle & Foot Office Visit 06/16/2014 Nia Miramontes 715.97 Osteoarthrosis 1:30p Services Of [place] Shane Unspec Genlzd Or C.M.A. Localized Ankle & Foot Office Visit 03/02/2014 Orthopedic Isaura Hess6.96 Arthropathy Unspec 3:15p Services Of [place] Lower Leg C.M.A. Office Visit 02/24/2014 Hema Coby [place] 401.1 Hypertension Benign 3:00p Cardiology Baltazar Krishnamurthy 278.01 Obesity Morbid 426.4 Right Bundle Branch Block 786.05 Shortness Of Breath Office Visit 02/11/2014 Orthopedic Kulwinder 715.97 Osteoarthrosis 1:45p Services Of [place] Shane Unspec Genlzd Or C.M.A. Localized Ankle & Foot Office Visit 12/24/2013 Orthopedic Kulwinder 716.96 Arthropathy Unspec 2:00p Services Of [place] Shane Lower Leg C.M.A. Office Visit 12/08/2013 Orthopedic Philip Talamantes 716.96 Arthropathy Unspec 2:45p Services Of [place] Lower Leg C.M.[place] 727.06 Tenosynovitis Foot & Ankle Office Visit 09/16/2013 10:54a [facility], Romeo Garay 995.91 Sepsis Hospitalists Baltazar Jerry 595.0 Cystitis Acute 492.8 Emphysema Other 780.53 Hypersomnia W/ Sleep Apnea Unspecified Office Visit 09/15[facility]2013 [facility] 995.91 Sepsis Hospitaljaya Jerry M.D. 492.8 Emphysema Other Office Visit 09/14/2013 10:52a [facility] Brianna Padilla 995.91 Sepsis Assjoselyn,[place] Hospitalists Baltazar 595.0 Cystitis Acute 492.8 Emphysema Other 780.53 Hypersomnia W/ Sleep Apnea Unspecified Office Visit 09/13/2013 10:49a [facility] Brianna Padilla 995.91 Sepsis Assoc, Hospitalists Baltazar 595.0 Cystitis Acute 492.8 Emphysema Other 780.53 Hypersomnia W/ Sleep Apnea Unspecified Office Visit 07/23/2013 8:00a Orthopedic Philip Talamantes 716.96 Arthropathy Unspec Services Of [place] Lower Leg C.M.A. V54.81 Aftercare Following Joint Replacement V43.65 Knee Replacement By Other Means Office Visit 07/12/2013 12:01p [facility] Venecia Rodriguez 584.9 Acute Kidney Assoc,hemant Hdez M.D. Failure, Hospitalists Unspecified 401.9 Hypertension Unspec 492.8 Emphysema Other 278.01 Obesity Morbid Office Visit 07/11/2013 [facility] Wil 584.9 Acute Kidney 12:00p Assoc,hemant Estrella N.Annelise Failure, Hospitalists Unspecified 401.9 Hypertension Unspec 492.8 Emphysema Other 278.01 Obesity Morbid Office Visit 07/04/2013 [facility] Qutaybeh S. 401.1 Hypertension 9:00a Cardiology Bal[place]zar Krishnamurthy Benign 426.4 Right Bundle Branch Block 794.31 Electrocardiogram (ECG) (EKG) Abnormal 782.3 Edema 492.8 Emphysema Other 414.01 Coronary Atherosclerosis [place] Office Visit 11/12/2012 3:00p [facility] Nurse Visit cc 401.1 Hypertension Benign Office Visit 10/29/2012 8:40a [facility] Qutaybeh S. 426.4 Right Bundle Maghaydkuldeep, Branch Block M.D. 794.31 Electrocardiogram (ECG) (EKG) Abnormal 782.3 Edema 401.1 Hypertension Benign Office 09/11/2012 [facility] Qutaybeh S. 794.31 Electrocardiogram Visit 2:27p Cardiology Baltazar Krishnamurthy (ECG) (EKG) Abnormal 414.01 Coronary Atherosclerosis [place] 401.0 Hypertension Malignant 786.50 Pain Chest Unspec 782.3 Edema 272.4 Hyperlipidemia Other Unspec Office Visit 03/27/2012 2:40p [facility] Qutaybeh S. 492.8 Emphysema Other Baltazar Krishnamurthy 278.01 Obesity Morbid 414.01 Coronary Atherosclerosis [place] 786.05 Shortness Of Breath 782.3 Edema 426.4 Right Bundle Branch Block 401.1 Hypertension Benign Office Visit 07/26/2011 4:00p [facility] Qutaybeh S. Raghu, 782.3 Edema M.D. 786.05 Shortness Of Breath 794.31 Electrocardiogram (ECG) (EKG) Abnormal 426.4 Right Bundle Branch Block 401.1 Hypertension Benign 414.01 Coronary Atherosclerosis [place] Office Visit 12/23/2010 3:00p [facility] Qutaybeh Lennox Krishnamurthy, 782.3 Edema M.D. 786.05 Shortness Of Breath 794.31 Electrocardiogram (ECG) (EKG) Abnormal 426.4 Right Bundle Branch Block 401.1 Hypertension Benign 414.01 Coronary Atherosclerosis [place] Office Visit 09/23/2010 2:20p [facility] Qutaybeh S. Maghaydah, 782.3 Edema M.D. 414.01 Coronary Atherosclerosis [place] 401.1 Hypertension Benign Office Visit 06/22/2010 9:40a [facility] Qutaybeh S. Maghaydah, 782.3 Edema M.D. 414.01 Coronary Atherosclerosis [place] 426.4 Right Bundle Branch Block Office Visit 03/10/2010 10:30a [facility] Qutaybeh S. Maghaydah, 782.3 Edema M.D. 401.1 Hypertension Benign 414.01 Coronary Atherosclerosis [place] Office Visit 02/08/2010 9:40a [facility] Qutaybeh S. Maghaydah, 782.3 Edema M.D. 401.1 Hypertension Benign 414.01 Coronary Atherosclerosis [place] 786.05 Shortness Of Breath 426.4 Right Bundle Branch Block Office Visit 01/12/2010 9:00a [facility] Qutaybeh S. Maghaydah, 782.3 Edema M.D. 401.1 Hypertension Benign 414.01 Coronary Atherosclerosis [place] 786.05 Shortness Of Breath Office Visit 12/06/2009 3:20p [facility] Qutaybeh S. haydah, 782.3 Edema M.D. 401.1 Hypertension Benign 414.01 Coronary Atherosclerosis [place] Office Visit 11/10/2009 [facility] Qutaybeh S. 414.01 Coronary 3:00p Brittney Krishnamurthy M.D. Atherosclerosis [place] 401.1 Hypertension Benign 782.3 Edema 786.05 Shortness Of Breath Office Visit 10/28/2009 [facility] Qutaybeh S. 414.01 Coronary 11:10a Brittney Krishnamurthy M.D. Atherosclerosis [place] 401.1 Hypertension Benign 782.3 Edema Office Visit 07/13/2009 [facility] Qutaybeh S. 414.01 Coronary 2:00p Brittney Krishnamurthy M.D. Atherosclerosis [place] 401.1 Hypertension Benign Office Visit 06/02/2009 [facility] Qutaybeh S. 414.01 Coronary 8:40a Brittney Krishnamurthy M.D. Atherosclerosis [place] 426.4 Right Bundle Branch Block 401.1 Hypertension Benign 786.05 Shortness Of Breath 782.3 Edema Office Visit 11/19/2008 [facility] Qutaybeh S. 414.01 Coronary 8:40a Brittney Krishnamurthy M.D. Atherosclerosis [place] 426.4 Right Bundle Branch Block 401.1 Hypertension Benign 786.05 Shortness Of Breath 782.3 Edema Office Visit 09/09/2008 [facility] Qutaybeh S. 414.01 Coronary 11:40a Cardiology Baltazar Krishnamurthy Atherosclerosis [place] 426.4 Right Bundle Branch Block 401.0 Hypertension Malignant 786.05 Shortness Of Breath 782.3 Edema Office Visit 08/14/2008 [facility] Qutaybeh S. 414.01 Coronary 11:00a Brittney Krishnamurthy M.D. Atherosclerosis [place] 786.50 Pain Chest Unspec 401.0 Hypertension Malignant Office Visit 07/31/2008 [facility] Qutaybeh S. 414.01 Coronary 8:40a Cardiology Baltazar Krishnamurthy Atherosclerosis [place] 401.0 Hypertension Malignant 426.4 Right Bundle Branch Block 786.05 Shortness Of Breath 794.31 Electrocardiogram (ECG) (EKG) Abnormal 782.3 Edema Office Visit 01/29/2008 [facility] Qutaybeh S. 414.01 Coronary 8:40a Brittney Krishnamurthy M.D. Atherosclerosis [place] 401.0 Hypertension Malignant 426.4 Right Bundle Branch Block 278.0 Obesity Office Visit 09/25/2007 [facility] Qutaybeh S. 414.01 Coronary 8:20a Brtitney Krishnamurthy M.D. Atherosclerosis [place] 786.05 Shortness Of Breath 401.0 Hypertension Malignant 794.31 Electrocardiogram (ECG) (EKG) Abnormal V72.81 Examination Preoperative Cardiovascular Office Visit 09/20/2007 7:00a [facility] Brittney Tenorio S. 786.05 Santosness Of [place] Krishnamurthy Breath 794.30 Cardiovascular Function Study Unspec Abnormal 401.1 Hypertension Benign Office Visit 09/18/2007 [facility] Qutaybeh S. 401.0 Hypertension 9:40a Brittney Krishnamurthy M.D. Malignant 786.05 Shortness Of Breath 794.31 Electrocardiogram (ECG) (EKG) Abnormal 278.0 Obesity Plan of Treatment Future Appointment(s):09/04/2018 10:00 am - [place] [facility] at [facility]09/10/2018 11:30 am - Fernanda Stanley M.D. at [facility].08/30/2018 1:00 pm - Fernanda Stanley M.D. at [facility]12/09/2018 11:30 am - Kate Boyce MD at [facility]08/13/2018 - Coby Krishnamurthy M.D.E66.01 Morbid (severe) obesity due to excess kwahmpveO93.9 Chronic obstructive pulmonary disease, [id number] Essential (primary) qtzufkairvtiU26.10 Unspecified right bundle- branch vcdshK99.9 Aortic aneurysm of unspecified site, without nhhjlugQ91.10 Atherosclerotic heart disease of [place] coronary artery withNew Orders: Echocardiogram, Scheduled: 09/04/18Stress Test, Pharmacologic Nuclear (Lexiscan) , Ordered: 08/13/18Z01.810 Encounter for preprocedural cardiovascular examinationFollow up:ov before 09/10/2018 for final clearance
[2018-09-10] MEDS ORDERED: Famotidine IV* 10 MG/ML 2 ML (20 mg) ONE (08:56)
[2018-09-10] MEDS ORDERED: Buffered Lidocaine 1% SYRIN* 1 ML/SYRINGE INTRADERM ONE (08:56)
[2018-09-10] MEDS ORDERED: Gabapentin CAP(*) 300 MG ONE (08:56)
[2018-09-10] MEDS ORDERED: COAGULATION FACTOR VIIA IV ONE (09:00)
[2018-09-10] MEDS: Lactated Ringers 1000 ML Bag* 1,000 ML IV SCH (09:25)
[2018-09-10] MEDS ORDERED: Midazolam* 1 MG/ML 5 ML VIAL (5 MG) ONE (10:25)
[2018-09-10] MEDS ORDERED: fentaNYL* 50 MCG/ML 2 ML VIAL (100 MCG VIAL) ONE ×2 (10:25→12:49)
[2018-09-10] MEDS ORDERED: ceFAZolin 1 GM ADVAN(*) 1 GM ADDV.VIAL IVPB ONE (11:55)
[2018-09-10] MEDS ORDERED: ROPIVACAINE 5 MG/ML 30 ML BTL (0.5%) ONE (11:55)
[2018-09-10] MEDS ORDERED: ceFAZolin 2 GM PREMIX in ORs 2 GM/50 ML BAG IVPB ONE (11:55)
[2018-09-10] MEDS ORDERED: Lidocaine 1%* 5 ML VIAL ONE (11:55)
[2018-09-10] MEDS ORDERED: Bupivacaine 0.5%* 50 ML VIAL ONE (12:01)
[2018-09-10] MEDS ORDERED: KETAMINE HCL* 50 MG/ML 10 ML VIAL ONE (12:38)
[2018-09-10] MEDS ORDERED: Ondansetron INJ* 2 MG/ML VIAL ONE (12:44)
[2018-09-10] MEDS ORDERED: Glycopyrrolate IV* 0.2 MG/ML 1 ML VIAL ONE ×2 (12:44→12:50)
[2018-09-10] MEDS ORDERED: Propofol* 10 MG/ML 20 ML BTL ONE ×2 (12:44→14:56)
[2018-09-10] MEDS ORDERED: Succinylcholine* 20 MG/ML 10 ML VIAL ONE (12:44)
[2018-09-10] MEDS ORDERED: Dexamethasone IV* 4 MG/ML 1 ML (4 MG) ONE (12:44)
[2018-09-10] MEDS ORDERED: DiMENhydriNATE IV* 50 MG/ML VIAL ONE (12:44)
[2018-09-10] MEDS ORDERED: Lidocaine 2% PF * 5 ML VIAL ONE (12:45)
[2018-09-10] MEDS ORDERED: hydrALAZINE IV* 20 MG/ML VIAL ONE (13:57)
[2018-09-10] MEDS ORDERED: HYDROmorphone INJ1* 1 MG/ML SYRINGE ONE (14:08)
[2018-09-10] MEDS ORDERED: DiMENhydriNATE IV* 50 MG/ML VIAL IV PUSH PRN (14:18)
[2018-09-10] MEDS ORDERED: HYDROcodone/ACETAMIN 5-325 MG* 1 TAB PO PRN (14:18)
[2018-09-10] MEDS ORDERED: HYDROmorphone INJ1* 1 MG/ML SYRINGE IV PRN (14:18)
[2018-09-10] MEDS ORDERED: Naloxone* 0.4 MG/ML 1 ML VIAL IV PRN (14:18)
[2018-09-10] MEDS ORDERED: Levalbuterol 0.63MG/3ML NEB* UNIT OF USE INH PRN (14:18)
[2018-09-10] MEDS ORDERED: Gabapentin CAP(*) 100 MG PO ONE ×2 (14:20)
[2018-09-10] MEDS ORDERED: Ondansetron INJ* 2 MG/ML VIAL IV PRN (15:21)
[2018-09-10] MEDS ORDERED: Bisacodyl SUPP* 10 MG SUPP PR PRN (15:21)
[2018-09-10] MEDS ORDERED: diPHENhydraMINE IV* 50 MG/ML 1 ml VIAL (BENADRYL) IV PRN (15:21)
[2018-09-10] MEDS ORDERED: Magnesium Hydroxide LIQ* 30 ML UDC PO PRN (15:21)
[2018-09-10] MEDS ORDERED: oxyCODONE/Acetamin 5/325 MG* TAB PO PRN (15:21)
[2018-09-10] MEDS ORDERED: Acetaminophen TAB* 325 MG PO PRN (15:21)
[2018-09-10] MEDS ORDERED: Cyclobenzaprine TAB* 10 MG PO PRN (15:21)
[2018-09-10] MEDS ORDERED: Polyethylene Glycol 3350* 17 GM PACKET PO PRN (15:21)
[2018-09-10] MEDS ORDERED: Gabapentin CAP(*) 100 MG ONE (15:27)
[2018-09-10] MEDS ORDERED: HYDROcodone/ACETAMIN 5-325 MG* 1 TAB ONE (15:36)
[2018-09-10] MEDS ORDERED: Albuterol 2.5 MG/3 ML NEB.SOL* (0.083%) INH PRN (15:52)
[2018-09-10] MEDS ORDERED: Lactated Ringers 1000 ML Bag* 1,000 ML IV SCH (16:00)
--- NOTE | 2018-09-10 17:07 | PN ---
Progress Note - Progress Note Date of Service: 09/10/18 Note: POD 0 s/p left total knee replacement. Pain is well controlled. Denies CP, SOB , dizziness or nausea. DF/PF intact, DP2+, sensation intact to light touch distally. Has decreased sensation of the anterior lateral turner. He has a factor [address] Sullivan has given recommendation for replacement. No sign of bleeding at this time as dressing remains CDI.
[2018-09-10] MEDS: oxyCODONE/Acetamin 5/325 MG* TAB PO PRN (19:31)
--- NOTE | 2018-09-10 19:48 | CONS ---
CC: Giselle Ambrose NP; Dr. Brianna Padilla; Dr. Fernanda Stanley * CONSULTATION REPORT: DATE OF CONSULT: 09/10/18 PRIMARY CARE PROVIDER: Giselle Ambrose NP MY ATTENDING WHILE IN HOSPITAL: Dr. Brianna Padilla. CONSULTING PROVIDER: Dr. Fernanda Stanley. REASON FOR CONSULT: Comanagement of comorbid medical conditions. HISTORY OF PRESENT ILLNESS: Mr. Graham is a 68-year-old male with a past medical history significant for factor VII deficiency, COPD, mild CAD, hypertension, and sleep apnea,who underwent today a left total knee arthroplasty for end- stage osteoarthritis. Patient had no preoperative symptoms except for cold approximately 3 weeks ago. Patient had not taken his aspirin for 7 days. Patient took metoprolol and his torsemide this morning. Patient has not missed any of his other medications. Patient had no chest pain, shortness of breath, dizziness, palpitations preoperatively or in the postoperative period. The patient previously had an episode of uncontrolled bleeding with surgery presumably due to his factor VII deficiency; so patient was given factor VII preoperatively and had EBL of 150. Patient had general anesthesia and a block. Patient was quite drowsy when examined postoperatively. Patient has no complaints including dizziness, chest pain, shortness of breath or significant pain. Patient still does not have much sensation in his left leg. PAST MEDICAL HISTORY: Hypertension, GERD, sleep apnea, emphysema, factor VII deficiency, mild coronary artery disease, right bundle-branch block, edema. PAST SURGICAL HISTORY: Right total knee arthroplasty, bariatric surgery, hernia repair, prostate surgery, appendectomy, vein stripping. MEDICATIONS: 1. Vitamin B12 500 mg p.o. daily. 2. Multivitamin 1 tab p.o. daily. 3. Omeprazole 40 mg p.o. daily. 4. Torsemide 10 mg p.o. daily. 5. Aspirin 81 mg p.o. daily. 6. Joe D 1 tab p.o. daily. 7. Anoro Ellipta 62.5/25 one inhalation daily. 8. Metoprolol tartrate 12.5 mg p.o. daily. ALLERGIES: No known drug allergies. FAMILY HISTORY: The patient's father had coronary artery disease and a stroke. The patient's mother had frequent UTIs and DVT. SOCIAL HISTORY: The patient has an 80-pack year history of smoking, quit 10 years ago. The patient denies illicit drug use or alcohol use. 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 REVIEW OF SYSTEMS: A 14-point review of systems was reviewed and was negative except as above in HPI. PHYSICAL EXAM: General: The patient is a 68-year-old male who appears stated age and sitting comfortably in bed in no acute distress. Vital Signs: At the time of evaluation, temperature 97.0, pulse rate 69, respiratory rate 18, oxygen saturation 96% on 4 L, blood pressure 127/86. HEENT: Normocephalic, atraumatic. Sclerae anicteric. No conjunctival injection. Nasal mucosa moist. Oral mucosa moist. No pharyngeal erythema, discharge or exudate. Neck : Supple, nontender. No lymphadenopathy. No carotid bruits auscultated. No JVD. Cardiac: Regular rate and rhythm. No clicks, murmurs, gallops or rubs. Pulses are +2 in the bilateral dorsalis pedis, posterior radialis areas. Respiratory: Clear to auscultation bilaterally. No wheezes or rhonchi. Good air exchange bilaterally. Abdomen: Soft, nontender, nondistended. Bowel sounds present in 4 quadrants. No hepatosplenomegaly. No abdominal bruits auscultated. No hepatojugular reflux. Genitourinary: No suprapubic or CVA tenderness. Gonzalez catheter in place. Skin: Clean, dry and intact. No rash. Left knee covered in bulky dressing. Neuro: Cranial nerves II thorough XII are intact. No focal deficits. Alert and oriented x3. Preserved strength in bilateral lower extremities distally and symmetrically. Decreased sensation in the left lower extremity. Psychiatric: Pleasant and cooperative. DIAGNOSTIC STUDIES/LAB DATA: Preoperatively, white blood cell count 6.2, hemoglobin 15.9, platelet count 188. INR 1.37. Sodium 140, potassium 4.1, chloride 102, carbon dioxide 30, anion gap 8, BUN 21, creatinine 0.8, glucose 83 , calcium 9.6. AST 25, ALT 21. Troponin I 0.00. Albumin 4.3, globulin 2.1. ASSESSMENT AND PLAN/IMPRESSION: Mr. Graham is a 68-year-old male with past medical history significant for coronary artery disease, factor VII deficiency, chronic obstructive pulmonary disease, and obstructive sleep apnea, who is postoperative day 0 from a left total knee arthroplasty and is doing well. 1. Postoperative state. Management per Orthopedics. The patient's pain will be controlled per protocol. The patient should have bowel regimen. His Gonzalez catheter removed. The patient will be deferred to Orthopedics and Hematology with regard to the patient's anticoagulation. The patient should engage in physical therapy and occupation therapy. 2. Factor VII deficiency. Per Hematology, the patient should have factor VII replacement of 1.9 g. Preoperatively he received and 12 hours after surgery and as well as 24 hours after surgery. These orders have been placed by Orthopedics. The patient has no active signs of bleeding. The patient will have his hemoglobin and hematocrit monitored postoperatively. 3. Hypertension. The patient's metoprolol will be continued perioperatively. The patient's torsemide will be held and resumed as indicated. 4. Chronic obstructive pulmonary disease. The patient will have rescue inhaler as needed and will have his Anoro Ellipta continued. 5. Sleep apnea. Continue patient's home continuous positive airway pressure. 6. Coronary artery disease. The patient had a preoperative echocardiogram, which was unremarkable and a preoperative stress test which showed no areas of ischemia. The patient's aspirin will be resumed when cleared by Orthopedics and Hematology due to the patient's bleeding propensity. 7. FEN: The patient will have fluids until he will take adequate oral intake and have a regular unrestricted diet. 8. Disposition: Per Orthopedics. 9. Code status: The patient will be full code. The patient's surrogate decision maker is his . TIME SPENT: Approximately 60 minutes spent in consultation, 30 of which was spent in [id number] with the patient obtaining history and physical and discussion of treatment plan. This plan was was discussed with my attending, Dr. Brianna Padilla, and she is in agreement. Thank you very much for this consult. Please feel free to contact us with any questions. CHECO URIBE [id number]/CPS #: [id number] MTDD
[2018-09-10] MEDS: Morphine VIAL* 4 MG/ML VIAL (1 ml vial) IV PRN (20:55)
[2018-09-10] MEDS: Magnesium Hydroxide LIQ* 30 ML UDC PO SCH (21:21)
[2018-09-10] MEDS: ceFAZolin 1 GM ADVAN(*) 1 GM in NS 0.9% 50 ML* 50 ML IVPB SCH (21:21)
[2018-09-10] MEDS: Docusate CAP* 100 MG PO SCH (21:21)
[2018-09-11] MEDS: Morphine VIAL* 4 MG/ML VIAL (1 ml vial) IV PRN ×3 (00:01→05:53)
[2018-09-11] MEDS: COAGULATION FACTOR VIIA IV SCH ×2 (00:47→12:31)
--- NOTE | 2018-09-11 02:44 | OP ---
DATE OF OPERATION: 09/10/18 - ROOM #341 DATE OF : 48 SURGEON: Fernanda Stanley MD. MANAGER UNIX: CHECO Wilson. ANESTHESIOLOGIST: Dr. Guzman. ANESTHESIA: General. PRE-OP DIAGNOSIS: Left knee severe degenerative osteoarthritis POST-OP DIAGNOSIS: as above OPERATIVE PROCEDURE: Left total knee arthroplasty. TOURNIQUET TIME: 55 minutes. ESTIMATED BLOOD LOSS: 250 cc. COMPLICATIONS: None. SPECIMENS: Bone and cartilage from the left knee joint sent to Pathology. HARDWARE USED: Cemented [employer]hew total knee arthroplasty hardware. Two packages of Simplex bone cement were used. For the femur, a size 8 left posterior stabilized Legion femoral component; for the tibia, a size 7 left tibial base plate Jo Ann II; for the insert, a 9 mm Jo Ann II posterior stabilized articular insert size 7/8; and for the patella, 38 mm 3-peg all poly patella. BRIEF HISTORY/INDICATIONS: Mr. Graham is a 68-year-old gentleman with years of increasingly severe left knee pain. The patient failed conservative treatment with anti-inflammatories, pain medications, intra-articular injection, and physical therapy. Due to continued pain and decreased quality of life, the patient elected to undergo a left total knee arthroplasty. The patient's radiographs showed advanced arthritis with [id number] contact. Informed consent was obtained from the patient. He understood the risks of surgery included, but were not limited to bleeding, infection, damage to nearby structures, continued pain, need for further surgery, intraoperative fracture, nerve palsy, hardware failure or loosening, knee stiffness, loss of motion, stroke, heart attack, blood clot, and . He wished to proceed. INTRAOPERATIVE FINDINGS: Intraoperatively, the patient was noted to have severe end-stage arthritis with complete loss of cartilage in all 3 compartments. Extensive osteophyte formation was noted. He had significant wear along the medial tibial plateau with loss of bone. DESCRIPTION OF PROCEDURE: Mr. Graham was identified in the preanesthesia unit. His left lower extremity was marked as the correct operative site. Informed consent was signed and placed in the chart. The patient was taken to the operating room and placed under general anesthesia. Factor VII at 2 mg was given 1 hour before the procedure per Dr. Sullivan from hematology's recommendation. Tourniquet was placed on the left thigh. Gonzalez catheter was placed. The left lower extremity was prepped and draped in the usual sterile fashion. Preop time-out was made to correctly identify the patient, side, and site. Appropriate perioperative antibiotics were given within 1 hour of incision. Tourniquet was inflated until the tourniquet time was 55 minutes. A midline incision was made with a 10 blade and carried down to the extensor mechanism. A new 10 blade was used to make a standard medial parapatellar arthrotomy and the patella was subluxed laterally. Electrocautery was used to subperiosteally elevate the soft tissue off the supero-medial tibia to the midsagittal plane. The knee was flexed up. The anterior horn of the lateral meniscus and ACL were sharply released. A drill was used to enter the distal femur. Intramedullary distal femoral cutting guide was pinned on the distal femur. Oscillating saw was used to make the appropriate distal femoral cut. Next, the external rotation guide was pinned on the distal femur. The distal femur was sized to a size 8. Size 8 multi- cutting jig was pinned on the distal femur. Oscillating saw was used to make the appropriate 4 chamfer cuts. The PCL was completely released and the tibia was subluxed anteriorly. Extramedullary tibial cutting guide was pinned on the proximal tibia. Oscillating saw was used to make the proximal tibial cut perpendicular to the mechanical axis of the tibia. The bone was carefully removed. The knee was brought out to full extension. Spacer block had good fit. There was medial and lateral ligamentous balancing. Flexion and extension gaps were well balanced. The knee was flexed up. The lamina floor coverings installer was placed both medially and laterally. Any remaining meniscus was carefully removed using electrocautery. Curved osteotome was used to remove any posterior osteophytes. Tibial tray and drop alfa were placed and once again confirmed a satisfactory tibial cut. A size 8 left femoral trial was impacted on to the distal femur and had excellent fit and stability. Box for the posterior stabilized implant was prepared using a reamer and box cut osteotome. Size 7 tibial tray trial with a 9 mm insert trial was placed and the knee was taken through a range of motion. The knee had full extension to 120 degrees of flexion. Knee flexion was limited by body habitus. There was satisfactory patellofemoral tracking. The patella was everted; 9 mm of patellar bone and cartilage was carefully removed using an oscillating saw. The patella was sized to a size 38. Three peg holes were drilled through the size 38 guide. The 38 trial patella was placed and the knee was taken through a range of motion. There was satisfactory patellofemoral tracking. All trials were removed. The tibia was subluxed anteriorly and sized to a size 7. Proximal tibia was prepared using a size 7 keel punch. All bony cut surfaces were copiously irrigated and dried. Final implants were cemented into place starting with the tibia, followed by the femur and last the patella. A 9 mm insert trial was placed and the knee was brought out to full extension. Tourniquet was turned down and the knee was copiously irrigated with sterile saline. Electrocautery was used to obtain meticulous hemostasis. Once the cement had fully cured, the insert trial was removed. Any excess cement was removed from around the implants and hardware. Final insert chosen was a 9 mm posterior stabilized articular insert size 7/8. This was locked in position on the tibial tray. Stability of the insert was checked and rechecked and noted to be stable. The extensor mechanism was closed using interrupted #1 Vicryls. The rest of the incision was closed in a layered fashion using 0 and 2-0 Vicryls. Skin was closed using running 3-0 nylon suture. Sterile Xeroform, 4x4s, and Webril were used to cover the incision. Uziel wrap and cold pack were placed over this. The patient's anesthesia was reversed without difficulty. He was taken to the PACU in stable condition. Intended weightbearing will be weightbearing as tolerated. Intended DVT prophylaxis will be held for [address] Sullivan from hematology's recommendations. The patient will get 2 additional doses of factor VII in 12 and 24 hours. [id number]/[facility] #: [id number] [facility]
[2018-09-11] MEDS: Lactated Ringers 1000 ML Bag* 1,000 ML IV SCH (03:05)
[2018-09-11] MEDS: ceFAZolin 1 GM ADVAN(*) 1 GM in NS 0.9% 50 ML* 50 ML IVPB SCH ×2 (03:53→12:37)
[2018-09-11] MEDS: oxyCODONE TAB* 5 MG TAB PO PRN ×4 (05:51→18:46)
[2018-09-11 06:38] LABS: Hematocrit 39 % (42-52); Hemoglobin 13.8 g/dl (14.0-18.0); Mean Platelet Volume 10.6 fL (7.4-10.4); Platelet Count 127 10^3/ul (150-450)
[2018-09-11 06:41] LABS: INR 0.74 (0.77-1.02)
[2018-09-11 06:51] LABS: BUN/Creatinine Ratio 24.1 (8-20); Calcium 9.1 mg/dL (8.6-10.3); EGFR Non-African American 91.9 (>60); Potassium 4.8 mmol/L (3.5-5.0)
[2018-09-11] MEDS: oxyCODONE/Acetamin 5/325 MG* TAB PO PRN ×4 (07:48→23:15)
[2018-09-11] MEDS: Magnesium Hydroxide LIQ* 30 ML UDC PO SCH ×2 (08:08→20:06)
[2018-09-11] MEDS: Metoprolol Tartrate TAB* 25 MG PO SCH (08:09)
[2018-09-11] MEDS: PTO:Umeclidin/Vilant 62.5 MDI 62.5/25 mcg 14 INH ELLIPTA DEVICE INH SCH (08:09)
[2018-09-11] MEDS: Morphine TAB Extended Release (*) 30 MG TAB.ER PO SCH ×2 (08:09→20:06)
[2018-09-11] MEDS: Docusate CAP* 100 MG PO SCH ×2 (08:09→20:06)
[2018-09-11] MEDS: Cyanocobalamin TAB* 500 MCG PO SCH (08:09)
[2018-09-11] MEDS ORDERED: Pantoprazole TAB * 40 MG TAB PO SCH (09:00)
[2018-09-11] MEDS ORDERED: Calcium Carbonate CHEW TAB* 500 MG (TUMS) PO PRN (09:59)
[2018-09-11] MEDS ORDERED: Al Hydrox/Mg Hydrox/Simet LIQ* 30 ML UDC PO PRN (12:20)
[2018-09-11] MEDS ORDERED: NS 0.9% 1000 ML* 1,000 ML IV SCH (12:30)
--- NOTE | 2018-09-11 13:32 | PN ---
Progress Note - Progress Note Date of Service: 09/11/18 SOAP: Subjective: []Patient was seen and examined at bedside today. He is feeling well without CP , SOB, dizziness or nausea. 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 Objective: [] General: Well appearing, NAD LLE: Left knee dressing CDI without surrounding erythema, cryo cuff is in use, thigh is soft, DF/PF intact, DP2+, sensation intact distally Calves supple and nontender without erythema, edema or palpable cords Assessment: []POD 1 sp left total knee 09/10 Dr Stanley Plan: []WBAT PT/OT Appreciate Dr Sullivan's recommendations: factor 7 given at 12 and 24 hours post op. Will start lovenox 40 mg sq qd x 30 days on Wednesday 09/13. Patient to watch for bleeding. Low urine output 25 ml today, soft BP, NS now running. Vital Signs Temp 97.6 F 09/11/18 11:56 Pulse 69 09/11/18 11:56 Resp 18 09/11/18 12:03 BP 95/36 09/11/18 11:56 Pulse Ox 95 09/11/18 11:56 Intake & Output 09/10/18 09/11/18 09/11/18 18:59 06:59 18:59 Intake Total 2600 1604 825 Output Total 550 930 25 Balance 2050 674 800 Weight 325 lb 9.6 oz Intake: IV Fluids 2600 989 450 CEFAZOLIN 3G 100 LR 2500 989 450 IVPB 55 55 ABX - CEFAZOLIN 55 55 Oral 560 320 Output: Urine 25 Gonzalez 550 930 Laboratory Last Values Hgb 13.8 g/dl (14.0-18.0) L 09/11/18 05:47 Hct 39 % (42-52) L 09/11/18 05:47 Plt Count 127 10^3/ul (150-450) L 09/11/18 05:47 MPV 10.6 fL (7.4-10.4) H 09/11/18 05:47 INR (Anticoag Therapy) 0.74 (0.77-1.02) L 09/11/18 05:47 Sodium 136 mmol/L (135-145) 09/11/18 05:47 Potassium 4.8 mmol/L (3.5-5.0) 09/11/18 05:47 Chloride 101 mmol/L (101-111) 09/11/18 05:47 Carbon Dioxide 28 mmol/L (22-32) 09/11/18 05:47 Anion Gap 7 mmol/L (2-11) 09/11/18 05:47 BUN 20 mg/dL (6-24) 09/11/18 05:47 Creatinine 0.83 mg/dL (0.67-1.17) 09/11/18 05:47 Est GFR ( Amer) 111.2 (>60) 09/11/18 05:47 Est GFR (Non-Af Amer) 91.9 (>60) 09/11/18 05:47 BUN/Creatinine Ratio 24.1 (8-20) H 09/11/18 05:47 Glucose 127 mg/dL (70-100) H 09/11/18 05:47 Calcium 9.1 mg/dL (8.6-10.3) 09/11/18 05:47
--- NOTE | 2018-09-11 17:50 | PN ---
Subjective Date of Service: 09/11/18 Interval History: Received call from nurse this afternoon who reports patient has not urinating since 1000 and that was only a small amount. Due to low BP and report of decrease output, NS infusion ordered. In addition nurse reported patient was having indigestion and not drinking water due to this increasing symptoms. Tums ordered, but patient did not have relief. Maalox ordered with min relief. Repeat call from nurse this evening reports patient voided 100 mls. Instructed to bladder scan. Objective Active Medications: Acetaminophen (Tylenol Tab*) 650 mg PO Q8H PRN PRN Reason: PAIN OR TEMPERATURE Al Hydrox/Mg Hydrox/Simethicone (Maalox Plus*) 30 ml PO Q4H PRN PRN Reason: INDIGESTION Last Admin: 09/11/18 12:50 Dose: 30 ml Albuterol (Ventolin 2.5 Mg/3 Ml Neb.Loren*) 2.5 mg INH Q4H PRN PRN Reason: SOB/WHEEZING Bisacodyl (Dulcolax Supp*) 10 mg [place] DAILY PRN PRN Reason: constipation Calcium Carbonate (Tums*) 500 mg PO Q4H PRN PRN Reason: INDIGESTION Last Admin: 09/11/18 10:14 Dose: 500 mg Cyanocobalamin (Vitamin B12 Tab*) 500 mcg PO QAM [facility] Last Admin: 09/11/18 08:09 Dose: 500 mcg Cyclobenzaprine HCl (Flexeril Tab*) 5 mg PO TID PRN PRN Reason: SPASMS Diphenhydramine HCl (Benadryl Iv*) 25 mg IV Q6H PRN PRN Reason: itching Docusate Sodium (Colace Cap*) 100 mg PO BID [facility] Last Admin: 09/11/18 08:09 Dose: 100 mg Sodium Chloride (Ns 0.9% 1000 Ml*) 1,000 mls @ 100 mls/hr IV PER RATE [facility] Last Admin: 09/11/18 12:35 Dose: 100 mls/hr Lactulose (Lactulose*) 30 ml PO Q6H PRN PRN Reason: constipation Levalbuterol HCl (Xopenex 0.63mg/3ml Neb*) 0.63 mg INH ONCE PRN PRN Reason: SOB/WHEEZING Magnesium Hydroxide (Milk Of Magnesia Liq*) 30 ml PO BID [facility] Last Admin: 09/11/18 08:08 Dose: 30 ml Magnesium Hydroxide (Milk Of Magnesia Liq*) 30 ml PO Q6H PRN PRN Reason: constipation Metoprolol Tartrate (Lopressor Tab*) 12.5 mg PO QAM [facility] Last Admin: 09/11/18 08:09 Dose: 12.5 mg Morphine Sulfate (Morphine Vial*) 2 mg IV Q2H PRN PRN Reason: PAIN Last Admin: 09/11/18 05:53 Dose: 2 mg Morphine Sulfate (Ms Contin(*)) 30 mg PO Q12H [facility] Last Admin: 09/11/18 08:09 Dose: 30 mg Omeprazole (Prilosec Cap*) 20 mg PO DAILY@0600 [facility] Ondansetron HCl (Zofran Inj*) 4 mg IV Q6H PRN PRN Reason: nausea Last Admin: 09/11/18 14:50 Dose: 4 mg Oxycodone HCl (Roxycodone Tab*) 10 mg PO Q4H PRN PRN Reason: PAIN - SEVERE Last Admin: 09/11/18 14:40 Dose: 10 mg Oxycodone/Acetaminophen (Percocet 5/325 Tab*) 1 tab PO Q4H PRN PRN Reason: PAIN Oxycodone/Acetaminophen (Percocet 5/325 Tab*) 2 tab PO Q4H PRN PRN Reason: PAIN Last Admin: 09/11/18 16:52 Dose: 2 tab Pantoprazole Sodium (Protonix Tab (Nf)) 40 mg PO [facility] Last Admin: 09/11/18 08:09 Dose: 40 mg Polyethylene Glycol/Electrolytes (Miralax*) 17 gm PO DAILY PRN PRN Reason: Constipation Umeclidinium/Vilanterol (Anoro 62.5/25 Ellipta Device (Nf)) [facility] Last Admin: 09/11/18 08:09 Dose: Not Given Vital Signs - 8 hr 09/11/18 09/11/18 09/11/18 09:50 09:53 10:03 Temperature Pulse Rate 65 Respiratory 18 18 Rate Blood Pressure 109/56 (mmHg) O2 Sat by Pulse Oximetry 09/11/18 09/11/18 09/11/18 11:54 11:56 12:03 Temperature 97.6 F Pulse Rate 69 Respiratory 18 18 18 Rate Blood Pressure 95/36 (mmHg) O2 Sat by Pulse 95 Oximetry 09/11/18 09/11/18 09/11/18 14:40 14:41 15:21 Temperature Pulse Rate 66 Respiratory 18 18 16 Rate Blood Pressure 106/53 (mmHg) O2 Sat by Pulse 92 Oximetry 09/11/18 09/11/18 09/11/18 16:00 16:52 16:58 Temperature Pulse Rate Respiratory 18 18 Rate Blood Pressure (mmHg) O2 Sat by Pulse 92 Oximetry Oxygen Devices in Use Now: None Appearance: Comfortable, cooperative, NAD Eyes: No Scleral Icterus Ears/Nose/Mouth/Throat: Clear Oropharnyx, Mucous Membranes Moist Neck: NL Appearance and Movements; NL JVP Respiratory: Symmetrical Chest Expansion and Respiratory Effort, Clear to Auscultation Cardiovascular: NL Sounds; No Murmurs; No JVD, RRR, No Edema Abdominal: NL Sounds; No Tenderness; No Distention Lymphatic: No Cervical Adenopathy Extremities: No Clubbing, Cyanosis Skin: No Rash or Ulcers Neurological: Alert and Oriented x 3 Nutrition: Taking PO's Result Diagrams: 09/11/18 05:47 09/11/18 05:47 Assess/Plan/Problems-Billing Assessment: 68 yr old male with pmh of htn, gerd, jazz, hernia repain; who presented on 09/10 for elective left total knee replacement - Patient Problems (1) Status post total left knee replacement Comment: - POD 1 - Pain management per ortho (2) Decreased urine output Comment: - Voided approx 25 mls this morning around 1000 and approx 100 mls this afternoon/evening. - Patient received LR 500 mls bolus today and has NS running at 100 ml/hr - Instructed RN to bladder scan. - Patient may need straight cath (3) HTN (hypertension) Comment: - Cont Metoprolol - Hold Torsemide for now - Hypotesive this morning, fluid infusing. BP responding (4) GERD (gastroesophageal reflux disease) Comment: - No relief with TUMs or Maalox - EKG obtained and no change from previous EKG. No acute findings. - Patient had family member bring Omeprozale from home as he believes the different PPI and timing of new PPI is causing exacerabation. (5) JAZZ (obstructive sleep apnea) Comment: - Cont CPAP (6) Factor VII deficiency Comment: - Received Factor VII per Dr Sullivan's recommendations - Ortho plans to start Lovenox 09/[address] Sullivan's recommendation (7) DVT prophylaxis Comment: - Ortho plans to start Lovenox 09/[address] Sullivan's recommendations Attending: Stephy Mcghee
[2018-09-12] MEDS: oxyCODONE/Acetamin 5/325 MG* TAB PO PRN ×4 (04:53→20:20)
[2018-09-12] MEDS ORDERED: OMEPRAZOLE 20 MG PO SCH (06:00)
[2018-09-12 06:27] LABS: Hematocrit 36 % (42-52); Hemoglobin 12.5 g/dl (14.0-18.0); Mean Platelet Volume 10.2 fL (7.4-10.4); Platelet Count 110 10^3/ul (150-450)
[2018-09-12 06:32] LABS: INR 1.18 (0.77-1.02)
[2018-09-12] MEDS: Metoprolol Tartrate TAB* 25 MG PO SCH (08:22)
[2018-09-12] MEDS: Cyanocobalamin TAB* 500 MCG PO SCH (08:23)
[2018-09-12] MEDS: oxyCODONE TAB* 5 MG TAB PO PRN ×2 (08:23→13:17)
[2018-09-12] MEDS: Docusate CAP* 100 MG PO SCH ×2 (08:23→20:21)
[2018-09-12] MEDS: Magnesium Hydroxide LIQ* 30 ML UDC PO SCH ×2 (08:23→20:22)
[2018-09-12] MEDS: Morphine TAB Extended Release (*) 30 MG TAB.ER PO SCH ×2 (08:23→20:21)
[2018-09-12] MEDS: PTO:Umeclidin/Vilant 62.5 MDI 62.5/25 mcg 14 INH ELLIPTA DEVICE INH SCH (08:25)
--- NOTE | 2018-09-12 15:38 | PN ---
Progress Note - Progress Note Date of Service: 09/12/18 SOAP: Subjective: []Patient was seen and examined at bedside. He is feeling well without CP, SOB, dizziness or nausea. LLE pain is well controlled today. Objective: []General: Well appearing, NAD LLE: Left knee dressing changed, incision CDI without surrounding erythema, cryo cuff is in use, thigh is soft, DF/PF intact, DP2+, sensation intact distally Calves supple and nontender without erythema, edema or palpable cords Assessment: []POD 2 sp left total knee 09/10 Dr Stanley Plan: []WBAT PT/OT Appreciate Dr Sullivan's recommendations: factor 7 given at 12 and 24 hours post op. Will start lovenox 40 mg sq qd x 30 days on Wednesday 09/13. Patient to watch for bleeding. Low urine output resulting in heredia to be removed 09/13 Vital Signs Temp 98.8 F 09/12/18 15:45 Pulse 98 09/12/18 15:45 Resp 18 09/12/18 15:49 BP 142/60 09/12/18 15:45 Pulse Ox 93 09/12/18 15:45 Intake & Output 09/11/18 09/12/18 09/12/18 18:59 06:59 18:59 Intake Total 880 1634 350 Output Total 525 900 450 Balance 355 734 -100 Intake: IV Fluids 450 984 LR 450 NS (0.9%) 984 IVPB 110 ABX - CEFAZOLIN 110 Oral 320 650 350 Output: Urine 125 Heredia 900 450 Residual 400 Heredia 16 Fr 400 Laboratory Last Values Hgb 12.5 g/dl (14.0-18.0) L 09/12/18 06:12 Hct 36 % (42-52) L 09/12/18 06:12 Plt Count 110 10^3/ul (150-450) L 09/12/18 06:12 MPV 10.2 fL (7.4-10.4) 09/12/18 06:12 INR (Anticoag Therapy) 1.18 (0.77-1.02) H 09/12/18 06:12 Sodium 136 mmol/L (135-145) 09/11/18 05:47 Potassium 4.8 mmol/L (3.5-5.0) 09/11/18 05:47 Chloride 101 mmol/L (101-111) 09/11/18 05:47 Carbon Dioxide 28 mmol/L (22-32) 09/11/18 05:47 Anion Gap 7 mmol/L (2-11) 09/11/18 05:47 BUN 20 mg/dL (6-24) 09/11/18 05:47 Creatinine 0.83 mg/dL (0.67-1.17) 09/11/18 05:47 Est GFR ( Amer) 111.2 (>60) 09/11/18 05:47 Est GFR (Non-Af Amer) 91.9 (>60) 09/11/18 05:47 BUN/Creatinine Ratio 24.1 (8-20) H 09/11/18 05:47 Glucose 127 mg/dL (70-100) H 09/11/18 05:47 Calcium 9.1 mg/dL (8.6-10.3) 09/11/18 05:47
--- NOTE | 2018-09-12 17:56 | PN ---
Subjective Date of Service: 09/12/18 Interval History: Sitting in chair on assessment. Reports he feels much improved today as he is no longer having acid reflux since he starting using his own PPI this morning. Reports pain in left knee is controlled. Denies numbness/tingling, calf pain, sob, cp, nausea, vomiting, diarrhea, fever/ chills. Objective Active Medications: Acetaminophen (Tylenol Tab*) 650 mg PO Q8H PRN PRN Reason: PAIN OR TEMPERATURE Al Hydrox/Mg Hydrox/Simethicone (Maalox Plus*) 30 ml PO Q4H PRN PRN Reason: INDIGESTION Last Admin: 09/11/18 12:50 Dose: 30 ml Albuterol (Ventolin 2.5 Mg/3 Ml Neb.Loren*) 2.5 mg INH Q4H PRN PRN Reason: SOB/WHEEZING Bisacodyl (Dulcolax Supp*) 10 mg [place] DAILY PRN PRN Reason: constipation Calcium Carbonate (Tums*) 500 mg PO Q4H PRN PRN Reason: INDIGESTION Last Admin: 09/11/18 10:14 Dose: 500 mg Cyanocobalamin (Vitamin B12 Tab*) 500 mcg PO QAM [facility] Last Admin: 09/12/18 08:23 Dose: 500 mcg Cyclobenzaprine HCl (Flexeril Tab*) 5 mg PO TID PRN PRN Reason: SPASMS Diphenhydramine HCl (Benadryl Iv*) 25 mg IV Q6H PRN PRN Reason: itching Docusate Sodium (Colace Cap*) 100 mg PO BID [facility] Last Admin: 09/12/18 08:23 Dose: 100 mg Enoxaparin Sodium (Lovenox(*)) 40 mg SUBCUT Q24H [facility] Sodium Chloride (Ns 0.9% 1000 Ml*) 1,000 mls @ 100 mls/hr IV PER RATE [facility] Last Admin: 09/11/18 12:35 Dose: 100 mls/hr Lactulose (Lactulose*) 30 ml PO Q6H PRN PRN Reason: constipation Last Admin: 09/12/18 13:20 Dose: 30 ml Levalbuterol HCl (Xopenex 0.63mg/3ml Neb*) 0.63 mg INH ONCE PRN PRN Reason: SOB/WHEEZING Magnesium Hydroxide (Milk Of Magnesia Liq*) 30 ml PO BID [facility] Last Admin: 09/12/18 08:23 Dose: 30 ml Magnesium Hydroxide (Milk Of Magnesia Liq*) 30 ml PO Q6H PRN PRN Reason: constipation Metoprolol Tartrate (Lopressor Tab*) 12.5 mg PO QAM [facility] Last Admin: 09/12/18 08:22 Dose: 12.5 mg Morphine Sulfate (Morphine Vial*) 2 mg IV Q2H PRN PRN Reason: PAIN Last Admin: 09/11/18 05:53 Dose: 2 mg Morphine Sulfate (Ms Contin(*)) 30 mg PO Q12H [facility] Last Admin: 09/12/18 08:23 Dose: 30 mg Omeprazole (Prilosec (Nf)) 40 mg PO DAILY@0600 [facility] Ondansetron HCl (Zofran Inj*) 4 mg IV Q6H PRN PRN Reason: nausea Last Admin: 09/11/18 14:50 Dose: 4 mg Oxycodone HCl (Roxycodone Tab*) 10 mg PO Q4H PRN PRN Reason: PAIN - SEVERE Last Admin: 09/12/18 13:17 Dose: 10 mg Oxycodone/Acetaminophen (Percocet 5/325 Tab*) 1 tab PO Q4H PRN PRN Reason: PAIN Oxycodone/Acetaminophen (Percocet 5/325 Tab*) 2 tab PO Q4H PRN PRN Reason: PAIN Last Admin: 09/12/18 15:49 Dose: 2 tab Polyethylene Glycol/Electrolytes (Miralax*) 17 gm PO DAILY PRN PRN Reason: Constipation Torsemide (Demadex*) 10 mg PO [facility] Umeclidinium/Vilanterol (Anoro 62.5/25 Ellipta Device (Nf)) [facility] [place] Last Admin: 09/12/18 08:25 Dose: 1 inh Vital Signs - 8 hr 09/12/18 09/12/18 09/12/18 10:10 10:11 10:40 Temperature Pulse Rate Respiratory 18 18 20 Rate Blood Pressure (mmHg) O2 Sat by Pulse Oximetry 09/12/18 09/12/18 09/12/18 11:54 13:17 13:25 Temperature 98.5 F Pulse Rate 92 Respiratory 18 18 18 Rate Blood Pressure 139/57 (mmHg) O2 Sat by Pulse 95 Oximetry 09/12/18 09/12/18 09/12/18 15:18 15:45 15:49 Temperature 98.8 F Pulse Rate 98 Respiratory 16 20 18 Rate Blood Pressure 142/60 (mmHg) O2 Sat by Pulse 93 Oximetry 09/12/18 09/12/18 16:00 17:46 Temperature Pulse Rate Respiratory 18 Rate Blood Pressure (mmHg) O2 Sat by Pulse 93 Oximetry Oxygen Devices in Use Now: None Appearance: Comfortable, NAD Eyes: No Scleral Icterus Ears/Nose/Mouth/Throat: Clear Oropharnyx, Mucous Membranes Moist Neck: NL Appearance and Movements; NL JVP Respiratory: Symmetrical Chest Expansion and Respiratory Effort, Clear to Auscultation Cardiovascular: NL Sounds; No Murmurs; No JVD, RRR Abdominal: NL Sounds; No Tenderness; No Distention Lymphatic: No Cervical Adenopathy Extremities: No Clubbing, Cyanosis, - - Trace edema to LLE Skin: No Rash or Ulcers Neurological: Alert and Oriented x 3 Nutrition: Taking PO's Result Diagrams: 09/12/18 06:12 09/11/18 05:47 Additional Lab and Data: Laboratory Results - last 24 hr 09/12/18 09/12/18 06:12 06:12 Hgb 12.5 L Hct 36 L Plt Count 110 L MPV 10.2 INR (Anticoag Therapy) 1.18 H Assess/Plan/Problems-Billing Assessment: 68 yr old male with pmh of htn, gerd, jazz, hernia repain; who presented on 09/10 for elective left total knee replacement - Patient Problems (1) Status post total left knee replacement Comment: - POD 2 - Pain management per ortho (2) Urinary retention Comment: - Post void residual yesterday after patient voided 100 mls revealed > 450 therefore heredia cath replaced. - Patient has hx of turp. - Suspected etiology of retention is anesthesia, surgery, pain medication - Plan for heredia to be removed at 0600 tomorrow. Patient will stay until he voids and has post void bladder scan. If residual is greater than 100 he will need to be discharged with heredia with follow up with his urologist. (3) HTN (hypertension) Comment: - Cont Metoprolol - Resume Torsemide tomorrow (4) GERD (gastroesophageal reflux disease) Comment: - Resolved with use of home PPI (omeprozale) (5) JAZZ (obstructive sleep apnea) Comment: - Cont CPAP (6) Factor VII deficiency Comment: - Received Factor VII per Dr Sullivan's recommendations - Ortho plans to start Lovenox [address] Sullivan's recommendation (7) DVT prophylaxis Comment: - Ortho plans to start Lovenox [address] Sullivan's recommendations Attending: Brando Tinoco
[2018-09-13] MEDS: OMEPRAZOLE 40 MG PO SCH (04:12)
[2018-09-13] MEDS: oxyCODONE/Acetamin 5/325 MG* TAB PO PRN ×3 (04:12→15:36)
[2018-09-13 05:55] LABS: Hematocrit 33 % (42-52); Hemoglobin 11.5 g/dl (14.0-18.0); Mean Platelet Volume 10.5 fL (7.4-10.4); Platelet Count 103 10^3/ul (150-450)
[2018-09-13 06:02] LABS: INR 1.51 (0.77-1.02)
[2018-09-13] MEDS: PTO:Umeclidin/Vilant 62.5 MDI 62.5/25 mcg 14 INH ELLIPTA DEVICE INH SCH (07:42)
[2018-09-13] MEDS: Morphine TAB Extended Release (*) 30 MG TAB.ER PO SCH ×2 (07:43→20:00)
[2018-09-13] MEDS: Torsemide TAB* 20 MG PO SCH (07:43)
[2018-09-13] MEDS: Cyanocobalamin TAB* 500 MCG PO SCH (07:43)
[2018-09-13] MEDS: Metoprolol Tartrate TAB* 25 MG PO SCH (07:43)
[2018-09-13] MEDS: Docusate CAP* 100 MG PO SCH ×2 (07:46→20:50)
[2018-09-13] MEDS: Magnesium Hydroxide LIQ* 30 ML UDC PO SCH ×2 (07:47→20:50)
--- NOTE | 2018-09-13 10:29 | PN ---
Subjective Date of Service: 09/13/18 Interval History: Resting in reclined. Left knee pain controlled. Indigestion resolved. 12 point reviewed of symptom completed and all other negative Objective Active Medications: Acetaminophen (Tylenol Tab*) 650 mg PO Q8H PRN PRN Reason: PAIN OR TEMPERATURE Al Hydrox/Mg Hydrox/Simethicone (Maalox Plus*) 30 ml PO Q4H PRN PRN Reason: INDIGESTION Last Admin: 09/11/18 12:50 Dose: 30 ml Albuterol (Ventolin 2.5 Mg/3 Ml Neb.Loren*) 2.5 mg INH Q4H PRN PRN Reason: SOB/WHEEZING Bisacodyl (Dulcolax Supp*) 10 mg MS DAILY PRN PRN Reason: constipation Calcium Carbonate (Tums*) 500 mg PO Q4H PRN PRN Reason: INDIGESTION Last Admin: 09/11/18 10:14 Dose: 500 mg Cyanocobalamin (Vitamin B12 Tab*) 500 mcg PO QAM [facility] Last Admin: 09/13/18 07:43 Dose: 500 mcg Cyclobenzaprine HCl (Flexeril Tab*) 5 mg PO TID PRN PRN Reason: SPASMS Diphenhydramine HCl (Benadryl Iv*) 25 mg IV Q6H PRN PRN Reason: itching Docusate Sodium (Colace Cap*) 100 mg PO BID [facility] Last Admin: 09/13/18 07:46 Dose: Not Given Enoxaparin Sodium (Lovenox(*)) 40 mg SUBCUT Q24H [facility] Sodium Chloride (Ns 0.9% 1000 Ml*) 1,000 mls @ 100 mls/hr IV PER RATE [facility] Last Admin: 09/11/18 12:35 Dose: 100 mls/hr Lactulose (Lactulose*) 30 ml PO Q6H PRN PRN Reason: constipation Last Admin: 09/12/18 13:20 Dose: 30 ml Levalbuterol HCl (Xopenex 0.63mg/3ml Neb*) 0.63 mg INH ONCE PRN PRN Reason: SOB/WHEEZING Magnesium Hydroxide (Milk Of Magnesia Liq*) 30 ml PO BID [facility] Last Admin: 09/13/18 07:47 Dose: Not Given Magnesium Hydroxide (Milk Of Magnesia Liq*) 30 ml PO Q6H PRN PRN Reason: constipation Metoprolol Tartrate (Lopressor Tab*) 12.5 mg PO [facility] Last Admin: 09/13/18 07:43 Dose: 12.5 mg Morphine Sulfate (Morphine Vial*) 2 mg IV Q2H PRN PRN Reason: PAIN Last Admin: 09/11/18 05:53 Dose: 2 mg Morphine Sulfate (Ms Contin(*)) 30 mg PO Q12H [facility] Last Admin: 09/13/18 07:43 Dose: 30 mg Omeprazole (Prilosec (Nf)) 40 mg PO DAILY@0600 [facility] Last Admin: 09/13/18 04:12 Dose: 40 mg Ondansetron HCl (Zofran Inj*) 4 mg IV Q6H PRN PRN Reason: nausea Last Admin: 09/11/18 14:50 Dose: 4 mg Oxycodone HCl (Roxycodone Tab*) 10 mg PO Q4H PRN PRN Reason: PAIN - SEVERE Last Admin: 09/12/18 13:17 Dose: 10 mg Oxycodone/Acetaminophen (Percocet 5/325 Tab*) 1 tab PO Q4H PRN PRN Reason: PAIN Oxycodone/Acetaminophen (Percocet 5/325 Tab*) 2 tab PO Q4H PRN PRN Reason: PAIN Last Admin: 09/13/18 10:21 Dose: 2 tab Polyethylene Glycol/Electrolytes (Miralax*) 17 gm PO DAILY PRN PRN Reason: Constipation Torsemide (Demadex*) 10 mg PO [facility] Last Admin: 09/13/18 07:43 Dose: 10 mg Umeclidinium/Vilanterol (Anoro 62.5/25 Ellipta Device (Nf)) 1 inh INH [facility] Last Admin: 09/13/18 07:42 Dose: 1 inh Vital Signs - 8 hr 09/13/18 09/13/18 09/13/18 03:46 04:01 04:12 Temperature 99.1 F Pulse Rate 78 Respiratory 16 16 20 Rate Blood Pressure 129/58 (mmHg) O2 Sat by Pulse 97 96 Oximetry 09/13/18 09/13/18 09/13/18 07:42 07:43 08:00 Temperature 98.8 F Pulse Rate 77 Respiratory 16 18 18 Rate Blood Pressure 137/54 (mmHg) O2 Sat by Pulse 95 95 Oximetry 09/13/18 10:21 Temperature Pulse Rate Respiratory 18 Rate Blood Pressure (mmHg) O2 Sat by Pulse Oximetry Oxygen Devices in Use Now: None Appearance: Comfortable, NAD Eyes: No Scleral Icterus Ears/Nose/Mouth/Throat: Clear Oropharnyx, Mucous Membranes Moist Neck: NL Appearance and Movements; NL JVP Respiratory: Symmetrical Chest Expansion and Respiratory Effort, Clear to Auscultation Cardiovascular: NL Sounds; No Murmurs; No JVD, RRR, No Edema Abdominal: NL Sounds; No Tenderness; No Distention Extremities: No Clubbing, Cyanosis Skin: No Rash or Ulcers Neurological: Alert and Oriented x 3 Nutrition: Taking PO's Result Diagrams: 09/13/18 05:30 09/11/18 05:47 Additional Lab and Data: Laboratory Results - last 24 hr 09/13/18 09/13/18 05:30 05:30 Hgb 11.5 L Hct 33 L Plt Count 103 L MPV 10.5 H INR (Anticoag Therapy) 1.51 H Assess/Plan/Problems-Billing Assessment: 68 yr old male with pmh of htn, gerd, jazz, hernia repain; who presented on 09/10 for elective left total knee replacement - Patient Problems (1) Status post total left knee replacement Comment: - POD 3 - Pain management per ortho (2) Urinary retention Comment: - Heredia removed this morning and patient has since voided. Post void residual was not completed. Therefore, instructions provided to nurse to complete post void residual after next void. I suspect retention will not be an issue as he has already voided approx 500 ml. But if significant residual will need to be discharged with heredia with follow up with his urologist. - Patient has hx of turp. - Suspected etiology of retention is anesthesia, surgery, pain medication (3) HTN (hypertension) Comment: - Cont Metoprolol and Torsemide (4) GERD (gastroesophageal reflux disease) Comment: - Resolved with use of home PPI (omeprozale) (5) JAZZ (obstructive sleep apnea) Comment: - Cont CPAP (6) Factor VII deficiency Comment: - Received Factor VII per Dr Sullivan's recommendations - Ortho plans to start Lovenox /[address] Sullivan's recommendation (7) DVT prophylaxis Comment: - Ortho plans to start Lovenox /[address] Sullivan's recommendations Attending: Brando Tinoco
--- NOTE | 2018-09-13 11:24 | PN ---
Progress Note - Progress Note Date of Service: 09/13/18 SOAP: Subjective: []Patient is seen at bedside. He is doing well with therapy. His was admitted to hospital yesterday therefore now does not have help at home and will require SNF rehab. His pain is managed well. He denies SOB, CP, palpitations, nausea or vomiting. Objective: [] Vital Signs Temp 98.8 F 09/13/18 07:42 Pulse 77 09/13/18 07:42 Resp 18 09/13/18 10:21 BP 137/54 09/13/18 07:42 Pulse Ox 95 09/13/18 08:00 Intake & Output 09/12/18 09/13/18 09/13/18 18:59 06:59 18:59 Intake Total 350 860 Output Total 450 550 500 Balance -100 310 -500 Intake: Oral 350 860 Output: Urine 500 Gonzalez 450 550 Other: Date of Last Bowel 09/12/18 Movement # Bowel Movements 2 Estimated Stool Amount Medium Laboratory Results - last 24 hr 09/13/18 09/13/18 05:30 05:30 Hgb 11.5 L Hct 33 L Plt Count 103 L MPV 10.5 H INR (Anticoag Therapy) 1.51 H Left knee incision benign calft NT and soft +DF/PF left ankle sensation and circulation remains intact diatally Assessment: []s/p Left total knee arthroplasty POD #3 Plan: []Await bed offer at SNF rehab- stable for discharge Lovenox 40 mg for 1 month post operatively Follow up 10-1 days post op with Dr. Stanley
[2018-09-13] MEDS: Enoxaparin(*) 40 MG/0.4 ML SYR SUBCUT SCH (12:28)
[2018-09-14] MEDS: OMEPRAZOLE 40 MG PO SCH (05:12)
[2018-09-14] MEDS: oxyCODONE/Acetamin 5/325 MG* TAB PO PRN ×2 (05:17→11:02)
[2018-09-14 06:00] LABS: Hematocrit 34 % (42-52); Mean Platelet Volume 10.1 fL (7.4-10.4); Platelet Count 129 10^3/ul (150-450)
[2018-09-14 06:03] LABS: INR 1.51 (0.77-1.02)
[2018-09-14] MEDS: Magnesium Hydroxide LIQ* 30 ML UDC PO SCH (08:29)
[2018-09-14] MEDS: Docusate CAP* 100 MG PO SCH (08:29)
[2018-09-14] MEDS: Morphine TAB Extended Release (*) 30 MG TAB.ER PO SCH (08:30)
[2018-09-14] MEDS: PTO:Umeclidin/Vilant 62.5 MDI 62.5/25 mcg 14 INH ELLIPTA DEVICE INH SCH (08:30)
[2018-09-14] MEDS: Torsemide TAB* 20 MG PO SCH (08:30)
[2018-09-14] MEDS: Cyanocobalamin TAB* 500 MCG PO SCH (08:30)
[2018-09-14] MEDS: Metoprolol Tartrate TAB* 25 MG PO SCH (08:31)
--- NOTE | 2018-09-14 10:33 | PN ---
Progress Note - Progress Note Date of Service: 09/14/18 SOAP: Subjective: [Pt. doing well. Minimal c/o pain L knee. Denies Cp, SOB, Nausea. Feels ready to go home.] Objective: [A and O x 3, NAD L Knee dressing changed. Wound benign. No drainage or erythema. Ecchymosis present. Calf soft, NT. Gross motor and NV status intact. Laboratory Results - last 24 hr 09/14/18 09/14/18 05:39 05:39 Hgb 12.0 L Hct 34 L Plt Count 129 L MPV 10.1 INR (Anticoag Therapy) 1.51 H Vital Signs: Temp Pulse Resp BP Pulse Ox 97.7 F 97 18 134/65 94 09/14/18 08:19 09/14/18 08:10 09/14/18 10:14 09/14/18 08:10 09/14/18 08:10 ] Assessment: [s/p L TKA POD #4] Plan: [PT/OT - WBAT Lovenox 40 mg daily x 1 month post op Percocet for pain management D/C home with services F/U with Dr. Stanley 2 weeks post-op]
[2018-09-14] MEDS: Enoxaparin(*) 40 MG/0.4 ML SYR SUBCUT SCH (11:03)
[2018-09-14 12:09] VITALS: BP 129/64
--- NOTE | 2018-09-15 21:38 | DS ---
DISCHARGE SUMMARY: DATE OF ADMISSION: 09/10/18 DATE OF DISCHARGE: 09/14/18 ADMITTING PHYSICIAN: Dr. Stanley.* (DICTATED BY [facility]) ADMITTING DIAGNOSES: 1. Left knee osteoarthritis. 2. Factor VII deficiency. 3. Hypertension. 4. Gastroesophageal reflux disease. 5. Sleep apnea. 6. Chronic obstructive pulmonary disease. DISCHARGE DIAGNOSES: 1. Status post left total knee arthroplasty. 2. Factor VII deficiency. 3. Hypertension. 4. Gastroesophageal reflux disease. 5. Sleep apnea. 6. Chronic obstructive pulmonary disease. CONSULTANTS: Physical Therapy, Occupational Therapy, and Medicine. BRIEF HISTORY: Mr. Graham is a 68-year-old male with severe degenerative osteoarthritis of his left knee. He failed conservative treatment measures and elected to undergo a left total knee arthroplasty on 09/10/[address] Stanley. HOSPITAL COURSE: Mr. Graham was admitted to [facility] on 09/10/18. He underwent an uncomplicated left total knee arthroplasty. Postoperatively, he recovered on the short-stay surgical unit. On postoperative day 1, he had some pain issues which were managed by p.o. and IV pain medications. He had low urine output and so the Gonzalez was not removed until postoperative day 3, , after which he did void on his own. Postoperative day 4, the patient had a bowel movement and beginning postoperative day 2, he advanced to his regular diet without difficulty. After initial issues, pain was well controlled with Percocet. He was restarted on home medications. His vital signs and labs remained stable. He was able to bear weight as tolerated on the right lower extremity. He received factor VII at 12 and 24 hours postop secondary to factor VII deficiency. He advanced appropriately with physical therapy and occupational therapy. His DVT prophylaxis was Lovenox 40 mg once daily. His discharge was delayed a day or two secondary to health issues involving his . She was to be his help at home. Her health issues were resolved on the patient's postoperative day #4. He at that time was orthopedically and medically stable for discharge home with services. PHYSICAL EXAMINATION: General: On examination, the patient is noted to be calm and cooperative in no acute distress. He is alert and oriented x3. Vital Signs: On the day of discharge, temperature 97.7 degrees Fahrenheit, pulse rate 97. Extremities: Examination of the left lower extremity demonstrates a dressing overlying the left knee which is clean, dry, and intact. His calf is soft and non-tender. Distally, he has a palpable DP pulse, 5/5 ankle dorsiflexion, plantarflexion, and strength. Sensation is intact to light touch. RADIOGRAPHS: Postoperative radiographs of the left knee demonstrate a left total knee arthroplasty with satisfactory prosthesis placement and no acute bony abnormalities. DISCHARGE MEDICATIONS: 1. Vitamin B12. 2. Multivitamin. 3. Omeprazole 40 mg daily. 4. Torsemide 10 mg daily. 5. Calcium with vitamin D. 6. Anoro Ellipta. 7. Metoprolol 25 mg half a tab daily. 8. Lovenox 40 mg inject subcu once daily for 30 days. 9. Percocet 5/325 one to two tabs p.o. q.4 to 6 hours p.r.n. pain. 10. Colace 100 mg p.o. t.i.d. p.r.n. constipation. CONDITION ON DISCHARGE: Stable. DISCHARGE INSTRUCTIONS: Mr. Graham is a 68-year-old male, postoperative day #4 status post left total knee arthroplasty which was uncomplicated. He is orthopedically and medically stable to be discharged home with services. He has stable vital signs and labs. He has restarted home medications. He will use Lovenox for DVT prophylaxis. He will remain weightbearing as tolerated on the left lower extremity and have home physical therapy twice a day. He will take Percocet for pain control and Colace up to 3 times a day for constipation. He will follow up in the office with Dr. Stanley approximately 14 days postop for his incision check and suture removal. He was instructed to call Dr. Stanley or go immediately to the ER should he develop any new fevers, chills, incision pain, redness, or drainage. He was instructed to go immediately to the ER should he develop chest pain or shortness of breath. [facility] [id number]/[facility] #: [id number] MTDD
== END 2018-09-14 12:55 | disposition home health service (06) | DRG 470 ==
LOC: AA 08:29 → SSU 16:42
PROVIDERS: ADMIT Orthopaedic Surgery Adult Reconstructive Orthopaedic Surgery; ATTEND Orthopaedic Surgery Adult Reconstructive Orthopaedic Surgery
PROC: 0SRD0J9 Replacement of Left Knee Joint with Synthetic Substitute, Cemented, Open Approach (ICD-10-PCS; principal; 2018-09-10 12:00)
DX: M17.12 Unilateral primary osteoarthritis, left knee (principal); D68.2 Hereditary deficiency of other clotting factors; Z68.41 Body mass index [BMI] 40.0-44.9, adult; M25.762 Osteophyte, left knee; E66.01 Morbid (severe) obesity due to excess calories; Z96.651 Presence of right artificial knee joint; I77.819 Aortic ectasia, unspecified site; I07.1 Rheumatic tricuspid insufficiency; G47.33 Obstructive sleep apnea (adult) (pediatric); K21.9 Gastro-esophageal reflux disease without esophagitis; N40.0 Benign prostatic hyperplasia without lower urinary tract symptoms; I25.10 Atherosclerotic heart disease of native coronary artery without angina pectoris; I10 Essential (primary) hypertension; J43.9 Emphysema, unspecified; I45.10 Unspecified right bundle-branch block; Z90.89 Acquired absence of other organs; Z98.84 Bariatric surgery status; Z82.49 Family history of ischemic heart disease and other diseases of the circulatory system; Z87.891 Personal history of nicotine dependence; Z82.3 Family history of stroke; I95.9 Hypotension, unspecified; R33.9 Retention of urine, unspecified; Z98.49 Cataract extraction status, unspecified eye
CPT/HCPCS: 36415; 80048; 85014; 85018; 85049; 85610; 93005; 94640; A9270-GY; C1776; G8978-GP-CJ; G8979-GP-CI; G8987-GO-CK; G8988-GO-CI; J0330; J0360; J0690; J1100; J1170; J1240; J1650; J2250; J2270; J2405; J2704; J2795; J3010; J7189

== ENCOUNTER 2019-09-26 16:48 | Emergency (ER) | payer MEDICARE ==
--- NOTE | 2019-09-26 18:56 | ED ---
Upper Extremity Pain - HPI Summary HPI Summary: 6-year-old male with a significant past medical history of COPD, obesity, factor VII deficiency presented to the emergency department today status post mechanical fall approximately 3 hours ago. Patient currently endorses right frontal and orbital pain, right rib pain, right wrist pain. Patient denies any loss of consciousness or amnesia. Patient states when he fell and felt like " it knocked the wind out of me". Patient has a edematous and ecchymotic areas appear to the right orbit and mild tenderness with the right wrist. Patient has mild tenderness to palpation of the right ribs however there is no obvious ecchymosis. Patient felt fine before the fall and currently denies fever, chest pain, abdominal pain, pain with urination, rash. - History of Current Complaint Chief Complaint: EDFall Stated Complaint: FALL/RIB AND HEAD INJURY PER PT Time Seen by Provider: 09/26/19 18:52 Hx Obtained From: Patient Mechanism Of Injury: Fall From A Standing Position Onset/Duration: Started Hours Ago Severity Initially: Moderate Severity Currently: Moderate Pain Location: Wrist Character: Aching Aggravating Factor(s): Movement Associated Signs & Symptoms: Negative: Swelling, Redness, Bruising - Allergies/Home Medications Allergies/Adverse Reactions: Allergies Allergy/AdvReac Type Severity Reaction Status Date / Time No Known Allergies Allergy Verified 09/26/19 16:51 PMH/Surg Hx/FS Hx/Imm Hx Endocrine/Hematology History: Reports: Hx Unexplained Bleeding - COAGULOPATHY, SEEN BY DR. 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 GI History: Reports: Hx Gastroesophageal Reflux Disease - ON MEDICATION Denies: Other GI Disorders History: Reports: Hx Benign Prostatic Hyperplasia, Other Problems/ Disorders - SMALL BLADDER Denies: Hx Renal Disease Musculoskeletal History: Reports: Hx Arthritis - , RIGHT ANKLE, LEFT SHOULDER Denies: Other Musculoskeletal History Sensory History: Reports: Hx Cataracts - CATARACT SURGERY 2010, Hx Contacts or Glasses - READING Denies: Hx Hearing Aid Opthamlomology History: Reports: Hx Cataracts - CATARACT SURGERY 2010, Hx Contacts or Glasses - READING Neurological History: Denies: Other Neuro Impairments/Disorders - Cancer History Hx Chemotherapy: No Hx Radiation Therapy: No Hx Palliative Cancer Treatment: No - Surgical History Surgery Procedure, Year, and Place: 2011 GASTRIC BYPASS. 2007 RIGHT TOTAL [place] [facility] [place] SINUS (NOSE) SURG[place], [facility] [place]. 2009 BILATERAL CATARACT EXTRACTION WITH IOL IMPLANTS, [facility] [place]. APPENDECTOMY, 1960. 2010 ENDOSCOPY AND COLONOSCOY, [facility] [place]. 2011 GASTRIC BYPASS. 2011 GASTRIC BYPASS Hx Anesthesia Reactions: No - Immunization History Date of Tetanus Vaccine: 2011 Date of Influenza Vaccine: Fall 2012 Infectious Disease History: No Infectious Disease History: Reports: History Other Infectious Disease - shingles in the past Denies: Traveled Outside the [place] in Last 30 Days - Social History Alcohol Use: Occasionally Alcohol Amount: holidays Substance Use Type: Reports: None Smoking Status (MU): Former Smoker Amount Used/How Often: 2PPD 40YRS Have You Smoked in the Last Year: No Review of Systems Constitutional: Negative Eyes: Negative ENT: Negative Cardiovascular: Negative Respiratory: Negative Gastrointestinal: Negative Genitourinary: Negative Positive: Arthralgia, Myalgia, Decreased ROM Skin: Negative Neurological: Negative Psychological: Normal All Other Systems Reviewed And Are Negative: Yes Physical Exam - Summary Physical Exam Summary: Inspection reveals an area of ecchymosis and edema superior to the right orbit. There is an abrasion noted to the right frontal forehead. No obvious bleeding. No evidence of epistaxis. No Diaz sign, periocular ecchymosis, hemotympanum. No evidence of basilar skull fracture. No spinal midline tenderness. Patient has no ecchymosis but tenderness to palpation of the right ribs. Patient has full range of motion and is neurovascularly intact. Upper 70s bilaterally. Patient has 5 out of 5 strength in the right wrist and has no snuffbox tenderness. Triage Information Reviewed: Yes Vital Signs On Initial Exam: Initial Vitals Temp Pulse Resp BP Pulse Ox 97.9 F 66 22 185/92 96 09/26/19 16:51 09/26/19 16:51 09/26/19 16:51 09/26/19 16:51 09/26/19 16:51 Vital Signs Reviewed: Yes Appearance: Positive: Well-Appearing, No Pain Distress, Well-Nourished Skin: Positive: Warm, Skin Color Reflects Adequate Perfusion Eyes: Positive: EOMI, DIOMEDES ENT: Positive: Hearing grossly normal Respiratory/Lung Sounds: Positive: Clear to Auscultation, Breath Sounds Present Cardiovascular: Positive: RRR, S1, S2 Abdomen Description: Positive: Nontender, Soft Bowel Sounds: Positive: Present Musculoskeletal: Positive: Strength/ROM Intact Neurological: Positive: Sensory/Motor Intact, Alert, Oriented to Person Place, Time, Normal Gait, Facial Symmetry, Speech Normal Psychiatric: Positive: Normal, Affect/Mood Appropriate AVPU Assessment: Alert Procedures - Sedation Patient Received Moderate/Deep Sedation with Procedure: No Diagnostics - Vital Signs Vital Signs Temp Pulse Resp BP Pulse Ox 09/26/19 16:51 97.9 F 66 22 185/92 96 - Laboratory Lab Statement: Any lab studies that have been ordered have been reviewed, and results considered in the medical decision making process. Course/Dx - Course Course Of Treatment: Patient was evaluated after mechanical fall. Vitals noted. X-rays of the right wrist and right ribs were negative for fracture. CT of the chest negative for rib fracture. CT of the brain without contrast negative for intracranial pathology. Patient appears to have not sustained any significant trauma from fall. Patient discharged to outpatient follow-up. Patient's symptoms are likely due to minor contusions due to his fall. - Diagnoses Differential Diagnosis/HQI/PQRI: Positive: Arthritis, Fracture (Closed), Hematoma, Strain, Sprain Provider Diagnoses: Fall, Wrist pain, right, Chest wall pain Discharge ED - Sign-Out/Discharge Documenting (check all that apply): Patient Departure - Discharge Plan Condition: Stable Disposition: HOME Patient Education Materials: Fall Prevention (ED) Referrals: Giselle Ambrose NP [Primary Care Provider] - 3 Days Additional Instructions: Please take Tylenol as needed for pain. There is no evidence of rib fractures or complication from your fall. Please follow up with your primary care physician 3 days for further evaluation and management. Please return to the emergency department immediately if you develop any new or worsening symptoms. - Billing Disposition and Condition Condition: STABLE Disposition: Home
[2019-09-26] MEDS ORDERED: Acetaminophen TAB* 325 MG PO ONE (19:39)
[2019-09-26 21:30] VITALS: BP 150/75
== END 2019-09-26 21:30 | disposition home or self-care (01) ==
LOC: ED 16:48
DX: M25.531 Pain in right wrist (principal); R07.89 Other chest pain; R91.1 Solitary pulmonary nodule; M85.88 Other specified disorders of bone density and structure, other site; S05.11XA Contusion of eyeball and orbital tissues, right eye, initial encounter; W18.30XA Fall on same level, unspecified, initial encounter; Y92.9 Unspecified place or not applicable; I10 Essential (primary) hypertension; J44.9 Chronic obstructive pulmonary disease, unspecified; Z99.81 Dependence on supplemental oxygen; K21.9 Gastro-esophageal reflux disease without esophagitis; Z79.82 Long term (current) use of aspirin; Z79.899 Other long term (current) drug therapy; Z96.651 Presence of right artificial knee joint; Z87.891 Personal history of nicotine dependence
CPT/HCPCS: 70450; 71250; 99282; A9270-GY